=== PATIENT | female | born 1990 | race Caucasian/White ===

== ENCOUNTER 2023-03-24 09:29 | Inpatient (IN) ==
--- NOTE | 2023-03-24 10:05 | Emergency Department Note ---
Impression & Plan Pulmonary embolism, Hypoxia, Anemia ED Provider Note NAME: PAUL RAMESH AGE: 32 SEX: F : 1990 ARRIVES VIA: Walk-In INFORMANT: Patient, ED PROVIDER(S): Joe Shore DO CHIEF COMPLAINT: Shortness of breath HPI: The patient is a 32-year-old female who presented to the emergency department for an evaluation of difficulty breathing. The patient's noticed difficulty breathing especially with any exertion. This been worsening over the course last week. Initially she was seen at an urgent care. She was recommended a steroid for presumed bronchitis. The patient did not start the steroid yet. She was seen by her primary care physician today. Reportedly she had an oxygen saturation of 84% and was sent to the emergency department for possible pulmonary embolism. The patient denies having any leg swelling. She denies having any rectal bleeding or vaginal bleeding. She states symptoms are much worsened with exertion. They do relieve somewhat with rest. She denies having any fever or hemoptysis. She denies having any lower extremity swelling or pain. ROS: See above HPI for pertinent positives & negatives. A total of 10 systems reviewed and were otherwise negative. PAST MEDICAL HISTORY: See Below PAST SURGICAL HISTORY: See Below FAMILY HISTORY: See Below SOCIAL HISTORY: See Below HOME MEDICATIONS: See Below ALLERGIES: See Below VITALS: See Below PHYSICAL EXAMINATION: GENERAL: Patient is awake alert in no acute distress patient is resting comfortably and showing no signs of anxiety EYES: The conjunctivae are pale. The pupils are round and reactive. EARS, NOSE, MOUTH AND THROAT: The nose is without any evidence of any deformity. Mucous membranes are moist. Lips are pale. NECK: The neck is nontender and supple. RESPIRATORY: Tachypnea was noted. There is no diminished breath sounds rales rhonchi or wheezing. CARDIOVASCULAR: Tachycardic and regular heart sounds were noted to auscultation. There is no definite murmur. GASTROINTESTINAL: The abdomen is soft. Abdomen is nontender. Rectal exam revealed brown stool which was heme-negative. MUSCULOSKELETAL/EXTREMITIES: There is no evidence of gross deformity full range of motion is noted in the hips and shoulders. SKIN: There is no obvious evidence of any rash. There are no petechiae, pallor or cyanosis noted. NEUROLOGIC: Patient is awake alert and oriented x3 MEDICAL DECISION MAKING: The patient is a 32-year-old female who presented to the emergency department for an evaluation of difficulty breathing. The patient was experiencing severe shortness of breath with any exertion. Initially my evaluation found her to be very pale and I thought she may be severely anemic. She was found to be anemic but not to the degree that I would feel it would explain the patient's symptoms. For this reason further radiographic and laboratory studies were obtained including CT angiography of the chest. This did reveal significant pulmonary embolism which was bilateral. There was right heart strain. I discussed the patient's condition with her. She was started on IV heparin in the emergency department. I discussed the patient's condition with the on-call [facility]ist group. They have agreed to evaluate the patient in the emergency department for further management and disposition. Triage Nursing notes reviewed. Prior medical records reviewed Vital Signs: reviewed and remarkable for tachycardia and hypertension. Differential diagnosis: Reactive airway disease, pneumonia, pneumothorax, COPD, CHF, infections, cardiac ischemia, pulmonary embolism, musculoskeletal, gastrointestinal, as well as other pathologies. ER treatment provided: See below Diagnostics interpreted by me: ECG: EKG was obtained in the emergency department. My interpretation is sinus tachycardia at 111 bpm. There is no ectopy. There is no acute ST segment abnormalities noted. No previous tracing was available. Cardiac Monitoring: An order was placed for continuous cardiac monitoring. The monitor shows a rate of 105 bpm with sinus tachycardia. Laboratory studies: As stated above and show below. Imaging studies: See below. Radiographic imaging was reviewed by myself Consultation(s): I discussed this case with Saniya who is on-call for the [facility] Hospitalist group. ED COURSE: Procedures: none Critical Care: I have personally spent greater than 65 minutes of critical care time in the direct management of this patient. This includes bedside care, interpretation of diagnostic studies, and testing, discussion with consultants, patient, and family members, and other required patient management activities. This 65 minutes is in excess of all separately billable procedures. Past Med/Surg History Medical History (Updated 03/24/23 @ 12:55 by DWAYNE Campbell) Depression Surgical History (Updated 03/24/23 @ 14:36 by DWAYNE Campbell) No pertinent past surgical history Family History (Updated 03/24/23 @ 14:36 by Fatoumata I. Emeterio, C S S REPRESENTATIVE) Other Diabetes Social History Smoking Status: Never smoker Preferred Language: Liberian Feels Safe at Home: Yes Allergies Allergies Allergy/AdvReac Type Severity Reaction Status Date / Time No Known Allergies Allergy Verified 03/24/23 13:05 Home Meds Home Medications Medication Instructions Recorded Confirmed fluoxetine 10 mg capsule 10 mg PO DAILY 03/24/23 03/24/23 levonorgestrel-ethinyl estradiol 1 tab PO DAILY 03/24/23 03/24/23 0.1 mg-20 mcg tablet Results & Data (ED) Vital Signs Vital Signs - 24 hr 03/24/23 09:38 03/24/23 10:10 03/24/23 10:15 Temperature 36.6 C Temperature Source Temporal Artery Scan Pulse Rate 123 H 113 H Pulse Rate [Apical] Pulse Rate from SpO2 Sensor Pulse Rhythm [Apical] Pulse Strength [Apical] Respiratory Rate 18 Respiratory Effort / Characteristics Labored Respiratory Depth Deep Respiratory Pattern Blood Pressure 157/97 H Blood Pressure [Left Arm] Blood Pressure Mean 117 Blood Pressure Mean [Left Arm] Pulse Oximetry 93 Oxygen Delivery Method Room Air Oxygen Flow Rate Sepsis Recent Fever Within 48 Hours No Sepsis New/Unexplained Change in Mental Status No Sepsis Action Taken by Nursing No Action Required Oxygen Flow Rate - Titration Pulse Oximetry Post Tiitration 03/24/23 10:15 03/24/23 10:06 03/24/23 10:30 Temperature Temperature Source Pulse Rate 110 H 103 H Pulse Rate [Apical] Pulse Rate from SpO2 Sensor 110 H 103 H Pulse Rhythm [Apical] Pulse Strength [Apical] Respiratory Rate 23 22 Respiratory Effort / Characteristics Respiratory Depth Respiratory Pattern Blood Pressure 133/106 H 123/102 H Blood Pressure [Left Arm] Blood Pressure Mean 115 109 Blood Pressure Mean [Left Arm] Pulse Oximetry 88 L 96 100 Oxygen Delivery Method Room Air Nasal Cannula Nasal Cannula Oxygen Flow Rate 2 2 Sepsis Recent Fever Within 48 Hours Sepsis New/Unexplained Change in Mental Status Sepsis Action Taken by Nursing Oxygen Flow Rate - Titration 2 Pulse Oximetry Post Tiitration 98 03/24/23 11:00 03/24/23 11:30 03/24/23 12:12 Temperature Temperature Source Pulse Rate 101 H 113 H 108 H Pulse Rate [Apical] Pulse Rate from SpO2 Sensor 101 H 111 H 109 H Pulse Rhythm [Apical] Pulse Strength [Apical] Respiratory Rate 16 17 22 Respiratory Effort / Characteristics Respiratory Depth Respiratory Pattern Blood Pressure 134/105 H 155/121 H 179/135 H Blood Pressure [Left Arm] Blood Pressure Mean 114 132 149 Blood Pressure Mean [Left Arm] Pulse Oximetry 99 96 99 Oxygen Delivery Method Nasal Cannula Nasal Cannula Nasal Cannula Oxygen Flow Rate 2 2 2 Sepsis Recent Fever Within 48 Hours Sepsis New/Unexplained Change in Mental Status Sepsis Action Taken by Nursing Oxygen Flow Rate - Titration Pulse Oximetry Post Tiitration 03/24/23 13:40 03/24/23 14:52 Temperature Temperature Source Pulse Rate 109 H Pulse Rate [Apical] 105 H Pulse Rate from SpO2 Sensor Pulse Rhythm [Apical] Regular Pulse Strength [Apical] Normal Respiratory Rate 18 Respiratory Effort / Characteristics Non-Labored Respiratory Depth Normal Respiratory Pattern Regular Blood Pressure Blood Pressure [Left Arm] 128/106 H Blood Pressure Mean Blood Pressure Mean [Left Arm] 113 Pulse Oximetry 100 Oxygen Delivery Method Room Air Oxygen Flow Rate Sepsis Recent Fever Within 48 Hours Sepsis New/Unexplained Change in Mental Status Sepsis Action Taken by Nursing Oxygen Flow Rate - Titration Pulse Oximetry Post Tiitration Home Medications Current Medication List: was personally reviewed by me Laboratory Data Attestation: I reviewed the patient's lab results. 03/24/23 10:01 03/24/23 10:02 Lab Results 03/24/23 03/24/23 03/24/23 Range/Units 10:01 10:01 10:01 WBC 15.16 H (4.8-10.8) K/ul RBC 4.85 (4.20-5.40) M/uL Hgb 7.8 L (12.0-16.0) g/dl Hct 30.5 L (37.0-47.0) % MCV 62.9 L (80.0-100.0) fL MCH 16.1 L (25.0-34.0) pg MCHC 25.6 L (32.0-36.0) g/dL RDW Std Deviation 40.5 (36.4-46.3) fL RDW Coeff of Radha 18.9 H (11.5-14.5) % Plt Count 451 H (130-400) K/uL MPV 9.4 (9.4-12.4) fL Immature Gran % (Auto) 0.4 % Neut % (Auto) 79.1 % Lymph % (Auto) 15.0 % [place] % (Auto) 5.2 % Eos % (Auto) 0.1 % Baso % (Auto) 0.2 % Reticulocyte % (Auto) 1.9 (0.5-2.0) % Neut # (Auto) 12.00 H (1.40-6.50) K/uL Lymph # (Auto) 2.27 (1.2-3.4) K/uL [place] # (Auto) 0.79 H (0.11-0.59) K/uL Eos # (Auto) 0.01 (0-0.50) K/uL Baso # (Auto) 0.03 (0-0.2) K/uL Reticulocyte # 0.09 (0.02-0.10) 10^6/uL Immature Gran # (Auto) 0.06 (0.01-0.20) K/uL Absolute Nucleated RBC 0.02 (0-0.12) K/uL Nucleated RBC % (auto) 0.1 % Polychromasia 1+ Hypochromasia Present Microcytosis Present PT 12.1 H (9.0-12.0) Seconds INR 1.1 (0.9-1.1) APTT 25.1 (21.0-31.0) Seconds PTT Ratio 0.9 D-Dimer 4390 H* (0-500) ug/L FEU VBG pH (7.36-7.41) VBG pCO2 (38-50) mmHg VBG pO2 mmHg VBG HCO3 mmol/L VBG O2 Saturation % VBG Base Excess mEq/L Methemoglobin (0.0-1.5) % Sodium (136-145) mmol/L Potassium (3.5-5.1) mmol/L Chloride (98-107) mmol/L Carbon Dioxide (21-32) mmol/L Anion Gap (3-11) BUN (6-23) mg/dl Creatinine (0.6-1.2) mg/dl Est Cr Clr Drug Dosing ml/min Est GFR ( Amer) ml/min Est GFR (Non-Af Amer) ml/min BUN/Creatinine Ratio (10-20) Glucose (70-99(Fasting)) mg/dl Calcium (8.6-10.3) mg/dl Unsaturated IBC Total Bilirubin (0.2-1.0) mg/dl AST (13-39) U/L ALT (7-52) U/L Alkaline Phosphatase (34-104) U/L Total Protein (6.0-8.3) gm/dl Albumin (3.4-5.0) gm/dl Globulin (2.5-4.0) gm/dl Albumin/Globulin Ratio (0.9-2) HCG, Qual (Negative) SARS-CoV-2 (PCR) (Negative) Influenza Type A (PCR) (Neg) Influenza Type B (PCR) (Neg) RSV (RT-PCR) (Neg) Blood Type Antibody Screen 03/24/23 03/24/23 03/24/23 Range/Units 10:02 10:02 10:02 WBC (4.8-10.8) K/ul RBC (4.20-5.40) M/uL Hgb (12.0-16.0) g/dl Hct (37.0-47.0) % MCV (80.0-100.0) fL MCH (25.0-34.0) pg MCHC (32.0-36.0) g/dL RDW Std Deviation (36.4-46.3) fL RDW Coeff of Radha (11.5-14.5) % Plt Count (130-400) K/uL MPV (9.4-12.4) fL Immature Gran % (Auto) % Neut % (Auto) % Lymph % (Auto) % [place] % (Auto) % Eos % (Auto) % Baso % (Auto) % Reticulocyte % (Auto) (0.5-2.0) % Neut # (Auto) (1.40-6.50) K/uL Lymph # (Auto) (1.2-3.4) K/uL [place] # (Auto) (0.11-0.59) K/uL Eos # (Auto) (0-0.50) K/uL Baso # (Auto) (0-0.2) K/uL Reticulocyte # (0.02-0.10) 10^6/uL Immature Gran # (Auto) (0.01-0.20) K/uL Absolute Nucleated RBC (0-0.12) K/uL Nucleated RBC % (auto) % Polychromasia Hypochromasia Microcytosis PT (9.0-12.0) Seconds INR (0.9-1.1) APTT (21.0-31.0) Seconds PTT Ratio D-Dimer (0-500) ug/L FEU VBG pH (7.36-7.41) VBG pCO2 (38-50) mmHg VBG pO2 mmHg VBG HCO3 mmol/L VBG O2 Saturation % VBG Base Excess mEq/L Methemoglobin (0.0-1.5) % Sodium 137 (136-145) mmol/L Potassium 3.7 (3.5-5.1) mmol/L Chloride 104 (98-107) mmol/L Carbon Dioxide 23 (21-32) mmol/L Anion Gap 10 (3-11) BUN 18 (6-23) mg/dl Creatinine 0.87 (0.6-1.2) mg/dl Est Cr Clr Drug Dosing 105.1 ml/min Est GFR ( Amer) 102.2 ml/min Est GFR (Non-Af Amer) 88.1 ml/min BUN/Creatinine Ratio 20.7 H (10-20) Glucose 135 H (70-99(Fasting)) mg/dl Calcium 9.6 (8.6-10.3) mg/dl Unsaturated IBC Total Bilirubin 0.6 (0.2-1.0) mg/dl AST 16 (13-39) U/L ALT 21 (7-52) U/L Alkaline Phosphatase 60 (34-104) U/L Total Protein 8.4 H (6.0-8.3) gm/dl Albumin 4.0 (3.4-5.0) gm/dl Globulin 4.4 H (2.5-4.0) gm/dl Albumin/Globulin Ratio 0.9 (0.9-2) HCG, Qual Negative (Negative) SARS-CoV-2 (PCR) NEGATIVE (Negative) Influenza Type A (PCR) Negative (Neg) Influenza Type B (PCR) Negative (Neg) RSV (RT-PCR) Negative (Neg) Blood Type Antibody Screen 03/24/23 03/24/23 03/24/23 Range/Units 10:11 10:11 10:11 WBC (4.8-10.8) K/ul RBC (4.20-5.40) M/uL Hgb (12.0-16.0) g/dl Hct (37.0-47.0) % MCV (80.0-100.0) fL MCH (25.0-34.0) pg MCHC (32.0-36.0) g/dL RDW Std Deviation (36.4-46.3) fL RDW Coeff of Radha (11.5-14.5) % Plt Count (130-400) K/uL MPV (9.4-12.4) fL Immature Gran % (Auto) % Neut % (Auto) % Lymph % (Auto) % [place] % (Auto) % Eos % (Auto) % Baso % (Auto) % Reticulocyte % (Auto) (0.5-2.0) % Neut # (Auto) (1.40-6.50) K/uL Lymph # (Auto) (1.2-3.4) K/uL [place] # (Auto) (0.11-0.59) K/uL Eos # (Auto) (0-0.50) K/uL Baso # (Auto) (0-0.2) K/uL Reticulocyte # (0.02-0.10) 10^6/uL Immature Gran # (Auto) (0.01-0.20) K/uL Absolute Nucleated RBC (0-0.12) K/uL Nucleated RBC % (auto) % Polychromasia Hypochromasia Microcytosis PT (9.0-12.0) Seconds INR (0.9-1.1) APTT (21.0-31.0) Seconds PTT Ratio D-Dimer (0-500) ug/L FEU VBG pH 7.44 H (7.36-7.41) VBG pCO2 34 L (38-50) mmHg VBG pO2 24 mmHg VBG HCO3 23 mmol/L VBG O2 Saturation < 60.0 % VBG Base Excess -0.5 mEq/L Methemoglobin 1.1 (0.0-1.5) % Sodium (136-145) mmol/L Potassium (3.5-5.1) mmol/L Chloride (98-107) mmol/L Carbon Dioxide (21-32) mmol/L Anion Gap (3-11) BUN (6-23) mg/dl Creatinine (0.6-1.2) mg/dl Est Cr Clr Drug Dosing ml/min Est GFR ( Amer) ml/min Est GFR (Non-Af Amer) ml/min BUN/Creatinine Ratio (10-20) Glucose (70-99(Fasting)) mg/dl Calcium (8.6-10.3) mg/dl Unsaturated IBC Total Bilirubin (0.2-1.0) mg/dl AST (13-39) U/L ALT (7-52) U/L Alkaline Phosphatase (34-104) U/L Total Protein (6.0-8.3) gm/dl Albumin (3.4-5.0) gm/dl Globulin (2.5-4.0) gm/dl Albumin/Globulin Ratio (0.9-2) HCG, Qual (Negative) SARS-CoV-2 (PCR) (Negative) Influenza Type A (PCR) (Neg) Influenza Type B (PCR) (Neg) RSV (RT-PCR) (Neg) Blood Type A Positive Antibody Screen NEGATIVE 03/24/23 Range/Units 14:21 WBC (4.8-10.8) K/ul RBC (4.20-5.40) M/uL Hgb (12.0-16.0) g/dl Hct (37.0-47.0) % MCV (80.0-100.0) fL MCH (25.0-34.0) pg MCHC (32.0-36.0) g/dL RDW Std Deviation (36.4-46.3) fL RDW Coeff of Radha (11.5-14.5) % Plt Count (130-400) K/uL MPV (9.4-12.4) fL Immature Gran % (Auto) % Neut % (Auto) % Lymph % (Auto) % [place] % (Auto) % Eos % (Auto) % Baso % (Auto) % Reticulocyte % (Auto) (0.5-2.0) % Neut # (Auto) (1.40-6.50) K/uL Lymph # (Auto) (1.2-3.4) K/uL [place] # (Auto) (0.11-0.59) K/uL Eos # (Auto) (0-0.50) K/uL Baso # (Auto) (0-0.2) K/uL Reticulocyte # (0.02-0.10) 10^6/uL Immature Gran # (Auto) (0.01-0.20) K/uL Absolute Nucleated RBC (0-0.12) K/uL Nucleated RBC % (auto) % Polychromasia Hypochromasia Microcytosis PT (9.0-12.0) Seconds INR (0.9-1.1) APTT (21.0-31.0) Seconds PTT Ratio D-Dimer (0-500) ug/L FEU VBG pH (7.36-7.41) VBG pCO2 (38-50) mmHg VBG pO2 mmHg VBG HCO3 mmol/L VBG O2 Saturation % VBG Base Excess mEq/L Methemoglobin (0.0-1.5) % Sodium (136-145) mmol/L Potassium (3.5-5.1) mmol/L Chloride (98-107) mmol/L Carbon Dioxide (21-32) mmol/L Anion Gap (3-11) BUN (6-23) mg/dl Creatinine (0.6-1.2) mg/dl Est Cr Clr Drug Dosing ml/min Est GFR ( Amer) ml/min Est GFR (Non-Af Amer) ml/min BUN/Creatinine Ratio (10-20) Glucose (70-99(Fasting)) mg/dl Calcium (8.6-10.3) mg/dl Unsaturated IBC Cancelled Total Bilirubin (0.2-1.0) mg/dl AST (13-39) U/L ALT (7-52) U/L Alkaline Phosphatase (34-104) U/L Total Protein (6.0-8.3) gm/dl Albumin (3.4-5.0) gm/dl Globulin (2.5-4.0) gm/dl Albumin/Globulin Ratio (0.9-2) HCG, Qual (Negative) SARS-CoV-2 (PCR) (Negative) Influenza Type A (PCR) (Neg) Influenza Type B (PCR) (Neg) RSV (RT-PCR) (Neg) Blood Type Antibody Screen Administered Medications Heparin Sodium/Dextrose (Heparin Sodium/Dextrose) 25,000 units in 500 mls @ 26 mls/hr IV .[id number] [facility]; Protocol Stop: 04/23/23 12:29 Last Admin: 03/24/23 13:09 Dose: 1,300 units/hr, 26 mls/hr Documented By: ERVIN Co-signed By: JACKY Discontinued Medications Heparin Sodium (Porcine) (Heparin Sod (Porcine) 1000 Unit/Ml) 6,000 units IV NOW ONE Stop: 03/24/23 13:01 Last Admin: 03/24/23 13:09 Dose: 6,000 units Documented By: ERVIN Co-signed By: JACKY Sodium Chloride (Nss) 500 mls @ 999 mls/hr IV .[id number] ONE Stop: 03/24/23 11:45 Last Infusion: 03/24/23 13:04 Dose: 0 mls/hr Documented By: Admin: 03/24/23 12:00 Dose: 999 mls/hr Documented By: ERVIN Ioversol (Optiray 320 500ml) 106 ml IV ONCE ONE Stop: 03/24/23 12:11 Last Admin: 03/24/23 12:05 Dose: 106 ml Documented By: KEISHA Imaging Data Attestation: I personally reviewed and interpreted this imaging study as follows: My Impression: CT angiography of the chest was obtained. My interpretation is bilateral pulmonary embolism, final report below. Radiologist's Impression: Chest CTA 03/24/23 11:41 CT ANGIOGRAPHY OF THE CHEST, PULMONARY EMBOLUS PROTOCOL CLINICAL HISTORY: Shortness of breath. Chest pain. COMPARISON STUDY: No previous studies for comparison. TECHNIQUE: Following IV administration of 106 mL of Optiray, helical axial images of the chest were obtained utilizing the pulmonary embolus protocol. Maximal intensity projections and sagittal and coronal reformats were viewed on an independent 3D workstation. IV contrast was administered without complication. Automated exposure control was utilized for the study. A dose lowering technique was utilized adhering to the principles of ALARA. CT DOSE: 725.46 mGy.cm FINDINGS: Note is made of extensive bilateral pulmonary emboli. These include emboli within the right pulmonary artery as well as emboli extending into the lobes of both lungs. Many lobar pulmonary emboli are occlusive. No pulmonary infarct is present. There is straightening of the interventricular septum. There is possible thrombus within the right ventricle which measures up to 2.6 cm. No thoracic lymphadenopathy is present. There is no consolidation to suggest pneumonia. No acute fractures within the bony thorax are noted. Visualized portions of the upper abdomen are unremarkable. IMPRESSION: 1. Extensive bilateral pulmonary emboli with findings suggestive of right heart strain. Possible thrombus/emboli within the right ventricle. Findings discussed with Dr. Shore at time of dictation. 2. No pulmonary infarct. ACT 112: Negative or not required by law. Electronically signed by: Aiden Hernandez M.D. 03/24/2023 12:23 PM Discharge Plan Visit Data Chief Complaint: Shortness of Breath/Dyspnea Stated Complaint: POSSIBLE BLOOD CLOT IN LUNGS,DOC REF ED Provider: Joe Shore Discharge Problem: Pulmonary embolism, Hypoxia, Anemia Patient Disposition: Being Evaluated by Hospitalist Forms Stand Alone Forms: [facility] Prescriptions Prescriptions: No Action fluoxetine 10 mg capsule 10 mg PO DAILY levonorgestrel-ethinyl estrad 0.1-20 mg-mcg tablet 1 tab PO DAILY Referrals Referrals: PCP,NO [Physician] -
[2023-03-24 10:27] LABS: Base Excess VBG -0.5 mEq/L; HCO3 VBG 23 mmol/L; Oxygen Saturation VBG < 60.0 %; PCO2 VBG 34 mmHg (38-50); PO2 VBG 24 mmHg; pH VBG 7.44 (7.36-7.41)
[2023-03-24 10:44] LABS: Hematocrit (blood only) 30.5 % (37.0-47.0); Hemoglobin 7.8 g/dl (12.0-16.0); Mean Corpuscular Hemoglobin 16.1 pg (25.0-34.0); Mean Corpuscular Hgb Conc 25.6 g/dL (32.0-36.0); Mean Corpuscular Volume 62.9 fL (80.0-100.0); Mean Platelet Volume 9.4 fL (9.4-12.4); Nucleated RBC # (auto) 0.02 K/uL (0-0.12); Nucleated RBC % (auto) 0.1 %; Platelet Count 451 K/uL (130-400); RDW Coefficient of Variation 18.9 % (11.5-14.5); RDW Standard Deviation 40.5 fL (36.4-46.3); Red Blood Count 4.85 M/uL (4.20-5.40); White Blood Count 15.16 K/ul (4.8-10.8)
[2023-03-24 10:54] LABS: Albumin Globulin Ratio 0.9 (0.9-2); BUN Creatinine Ratio 20.7 (10-20); Bilirubin,Total 0.6 mg/dl (0.2-1.0); Calcium 9.6 mg/dl (8.6-10.3); Creatinine Clr Calc Pharmacy 105.1 ml/min; Est GFR (African American) 102.2 ml/min; Est GFR (Non-African American) 88.1 ml/min; Globulin 4.4 gm/dl (2.5-4.0); Potassium 3.7 mmol/L (3.5-5.1); Total Protein 8.4 gm/dl (6.0-8.3)
[2023-03-24 10:55] LABS: Pregnancy Test, Serum Negative (Negative)
[2023-03-24 11:05] LABS: INR 1.1 (0.9-1.1); Partial Thromboplastin Ratio 0.9; Partial Thromboplastin Time 25.1 Seconds (21.0-31.0); Prothrombin Time 12.1 Seconds (9.0-12.0)
[2023-03-24 11:09] LABS: Basophils # (auto) 0.03 K/uL (0-0.2); Basophils % (auto) 0.2 %; Eosinophils # (auto) 0.01 K/uL (0-0.50); Eosinophils % (auto) 0.1 %; Hypochromasia Present; Immature Granulocytes # (auto) 0.06 K/uL (0.01-0.20); Immature Granulocytes % (auto) 0.4 %; Lymphocytes # (auto) 2.27 K/uL (1.2-3.4); Microcytosis Present; Monocytes # (auto) 0.79 K/uL (0.11-0.59); Monocytes % (auto) 5.2 %; Neutrophils % (auto) 79.1 %; Polychromasia 1+
[2023-03-24] MEDS ORDERED: SODIUM CHLORIDE 0.9% 500 ML IV ONE (11:15)
[2023-03-24 11:34] LABS: D Dimer 4390 ug/L FEU (0-500)
[2023-03-24] MEDS ORDERED: OPTIRAY 320 500ml IV ONE (12:10)
[2023-03-24] MEDS ORDERED: Heparin IV Adult Wt-Based Standard WITH Bolus Protocol IV STA (12:14)
[2023-03-24] MEDS ORDERED: Heparin IV Adult Wt-Based Standard WITH Bolus Protocol IV SCH (12:15)
[2023-03-24 12:20] LABS: Reticulocyte % 1.9 % (0.5-2.0); Reticulocytes # 0.09 10^6/uL (0.02-0.10)
--- NOTE | 2023-03-24 12:25 | CT Scan Report ---
CT ANGIOGRAPHY OF THE CHEST, PULMONARY EMBOLUS PROTOCOL CLINICAL HISTORY: Shortness of breath. Chest pain. COMPARISON STUDY: No previous studies for comparison. TECHNIQUE: Following IV administration of 106 mL of Optiray, helical axial images of the chest were o btained utilizing the pulmonary embolus protocol. Maximal intensity projections and sagittal and cor onal reformats were viewed on an independent 3D workstation. IV contrast was administered without co mplication. Automated exposure control was utilized for the study. A dose lowering technique was ut ilized adhering to the principles of ALARA. CT DOSE: 725.46 mGy.cm FINDINGS: Note is made of extensive bilateral pulmonary emboli. These include emboli within the righ t pulmonary artery as well as emboli extending into the lobes of both lungs. Many lobar pulmonary emb leonila are occlusive. No pulmonary infarct is present. There is straightening of the interventricular se ptum. There is possible thrombus within the right ventricle which measures up to 2.6 cm. No thoracic lymphadenopathy is present. There is no consolidation to suggest pneumonia. No acute fractures within the bony thorax are noted. Visualized portions of the upper abdomen are unremarkable. IMPRESSION: 1. Extensive bilateral pulmonary emboli with findings suggestive of right heart strain. Possible thro mbus/emboli within the right ventricle. Findings discussed with Dr. Shore at time of dictation. 2. No pulmonary infarct. ACT 112: Negative or not required by law. Electronically signed by: Aiden Hernandez M.D. 03/24/2023 12:23 PM
[2023-03-24] MEDS ORDERED: HEPARIN SOD (PORCINE) 1000 UNIT/ML IV ONE ×3 (12:29→20:21)
--- NOTE | 2023-03-24 12:56 | History & Physical Report ---
Date of Service March 24, 2023 Assessment & Plan (1) Pulmonary embolism: (2) Hypoxia: (3) Anemia: (4) Depression: Plan 32 year old with acute SOB that started on Tuesday. Chest CTA bilateral PE. Heparin gtt ordered. Anemic 7.8; anemia panel pending. May have underlying coagulopathy issues to investigate once off Heparin infusion. 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 Pulmonary Embolism: SOB since Tuesday Hypoxic 86% ; on 2LNC D-Dimer 4390 Chest CTA: large clot burden. Emboli within the right pulmonary artery as well as emboli extending into the lobes of both lungs. Many lobar pulmonary emboli are occlusive. No pulmonary infarct is present. There is straightening of the interventricular septum. There is possible thrombus within the right ventricle which measures up to 2.6 cm. Heparin gtt with bolus started ECHO ordered no cardiac thrombus noted PCU admission Pulmonary consultation; appreciate recommendations as outlined here: Per Pulmonary; recommend heparin for 3-4 days prior to transition to oral anticoagulant. Given the extensive nature of her clot and idiopathic nature of her clot, could make a strong case for lifelong anticoagulation. If not, would complete 6 months of anticoagulation and then follow-up with hematology for consideration of thrombophilia evaluation. Anemia: Hgb 7.8; will trend and transfuse if reaches 7.0; next CBC at 2100 Anemia panel and FOBT heavy menstrual cycles since October 2022 Started OCP at that time Pale conjunctiva and lips Type and Screen done; blood consent signed 2UPRBC on hold Depression: takes Prozac; continue Disposition: PCP: Dr. Barnes Code Status: Full Code VTE Prophylaxis: On Heparin gtt I spent a total of 88 minutes coordinating, documenting, and providing care for this patient excluding time spent in the performance of separately billed services. All of the aforementioned completed while collaborating with the assigned attending physician for a full treatment plan. Please see their addendum for further details. History of Present Illness Chief Complaint: SOB Primary Care Provider: Jackie Rangel PA-C On Tuesday, patient was SOB while walking to her office, which usually takes her 8-10 minutes but was taking her nearly 30 minutes due to having to stop frequently. She did leave work and went to urgent care yesterday for which she was prescribed Prednisone and an inhaler. She took one dose of her Prednisone without relief. 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 She was originally started on OCPs due to heavy menstrual flow. In the ED, D-Dimer elevated 4390, Hgb 7.8; reports no known history of anemia. No contributing family history or any coagulation history issues. No other contributing history. 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 She denies tobacco use, alcohol use, recreational drug use. She has taken an edible about 3 months ago. She does not have any pets. Pt sitting upright in her hospital bed and dyspneic during conversation. She is tachycardic low 100's, but is able to complete full sentences. Patient denies COBOS, dizziness, chest pain, palpitations, abdominal pain, hematochezia, urine changes, recent falls, rashes, abnormal bruising. Pt does have pale lips and conjunctiva on exam. Pt was started on a heparin gtt with bolus. c Patient will be admitted for further evaluation and management. Please see A/P for further details. Allergies Allergy/AdvReac Type Severity Reaction Status Date / Time No Known Allergies Allergy Verified 03/24/23 13:05 Home Medications Medication Instructions Recorded Confirmed Type fluoxetine 10 mg capsule 10 mg PO DAILY 03/24/23 03/24/23 History levonorgestrel-ethinyl estradiol 1 tab PO DAILY 03/24/23 03/24/23 History 0.1 mg-20 mcg tablet Past Med/Surg History Medical History (Updated 03/24/23 @ 16:28 by Demarco Merida MD) Depression Surgical History (Updated 03/24/23 @ 14:36 by DWAYNE Campbell) No pertinent past surgical history Family History (Updated 03/24/23 @ 14:36 by DWAYNE Campbell) Other Diabetes Social History Smoking Status: Never smoker Hx Alcohol Use: No Hx Substance Use: No Preferred Language: Ukrainian Communication Ability: Effective Registration Coordinator Required: No Beliefs That Will Affect Care: None Current Living Situation: Alone Feels Safe at Home: Yes Safety Concerns: Feels Safe At This Time Assistive Devices: None Review of Systems Review of Systems: Neuro: (-) Falls, trauma, slurred speech HEENT: (-) COBOS, dizziness, dysphagia, visual or auditory changes CV: (-) CP, palpitations, swelling Resp: (+) SOB GI: (-) appetite changes, N/V/D, bowel changes : (-) urinary changes Skin: (-) rashes Psych: (-) anxiety, depression Physical Exam Physical Exam: Neuro: AAOx4, PERRLA, no aphagia, memory changes, CNII-XII grossly intact HEENT: head normocephalic, moist mucus membranes. pale conjunctiva and lips CV: S1/S2, (-) M/G/R, (-) edema, cap refill < 3 seconds Resp: Lungs decreased in all lobes. on 2LNC GI: Abdomen S/NT/ND, Ax4 bowel sounds, (-) CVA tenderness Musculoskeletal: 5/5 B/L UE strength, 5/5 B/L LE strength. No gait disturbance Skin: (-) rashes , (-) erythema. Psych: euthymic, yet anxious mood Results & Data Results & Data Vital Signs (Past 12 Hours) Vital Signs Temp Pulse Resp BP Pulse Ox O2 Del Method O2 Flow Rate 03/24/23 12:12 108 H 22 179/135 H 99 Nasal Cannula 2 03/24/23 11:30 113 H 17 155/121 H 96 Nasal Cannula 2 03/24/23 11:00 101 H 16 134/105 H 99 Nasal Cannula 2 03/24/23 10:30 103 H 22 123/102 H 100 Nasal Cannula 2 03/24/23 10:06 110 H 23 133/106 H 96 Nasal Cannula 2 03/24/23 10:15 88 L Room Air 03/24/23 10:10 113 H 03/24/23 09:38 36.6 C 123 H 18 157/97 H 93 Room Air Laboratory Results Short CBC 03/24/23 Range/Units 10:01 WBC 15.16 H (4.8-10.8) K/ul Hgb 7.8 L (12.0-16.0) g/dl Hct 30.5 L (37.0-47.0) % Plt Count 451 H (130-400) K/uL BMP 03/24/23 10:02 Sodium 137 Potassium 3.7 Chloride 104 Carbon Dioxide 23 BUN 18 Creatinine 0.87 Glucose 135 H Calcium 9.6 Liver Function 03/24/23 Range/Units 10:02 Total Bilirubin 0.6 (0.2-1.0) mg/dl AST 16 (13-39) U/L ALT 21 (7-52) U/L Alkaline Phosphatase 60 (34-104) U/L Albumin 4.0 (3.4-5.0) gm/dl Diagnostic Findings Chest CTA 03/24/23 11:41 CT ANGIOGRAPHY OF THE CHEST, PULMONARY EMBOLUS PROTOCOL CLINICAL HISTORY: Shortness of breath. Chest pain. COMPARISON STUDY: No previous studies for comparison. TECHNIQUE: Following IV administration of 106 mL of Optiray, helical axial image s of the chest were obtained utilizing the pulmonary embolus protocol. Maximal intensity projections and sagittal and coronal reformats were viewed on an independent 3D workstation. IV contrast was administered without complication. Automated exposure control was utilized for the study. A dose lowering technique was utilized adhering to the principles of ALARA. CT DOSE: 725.46 mGy.cm FINDINGS: Note is made of extensive bilateral pulmonary emboli. These include emboli within the right pulmonary artery as well as emboli extending into the lobes of both lungs. Many lobar pulmonary emboli are occlusive. No pulmonary infarct is present. There is straightening of the interventricular septum. There is possible thrombus within the right ventricle which measures up to 2.6 cm. No thoracic lymphadenopathy is present. There is no consolidation to suggest pneumonia. No acute fractures within the bony thorax are noted. Visualized portions of the upper abdomen are unremarkable. IMPRESSION: 1. Extensive bilateral pulmonary emboli with findings suggestive of right heart strain. Possible thrombus/emboli within the right ventricle. Findings discussed with Dr. Shore at time of dictation. 2. No pulmonary infarct. ACT 112: Negative or not required by law. Electronically signed by: Aiden Hernandez M.D. 03/24/2023 12:23 PM Code Status & VTE Plan Code Status Full Code in the event of cardiac or respiratory distress VTE Prophylaxis Plan VTE Prophylaxis will be ordered: Yes Supervising Physician Co-Signing Physician Notes Patient is a 32-year-old female with history of menorrhagia, mood disorder and no other significant past medical history who was recently started on OCPs about 5 months ago for heavy menstrual bleeding presents with history of sudden onset of shortness of breath associated with easy fatigability. She denies any bleeding issues or clotting problems in the past. She was found to be in hypertensive urgency while in ED. CTA suggestive of extensive bilateral pulmonary emboli with findings suggestive of right heart strain. Blood work suggestive of leukocytosis 15 K, hemoglobin 7.8, platelets 451, glucose 135, troponin 279. Negative RSV, influenza, COVID screen. Urine analysis pending. EKG suggestive of sinus tachycardia, QTc 470. Echo showed normal left ventricular wall motion abnormality. Flattened septum consistent with RV pressure overload. Right ventricle is moderately dilated. Carson sign present with hyperdynamic RV apex and hypokinetic basilar structures. Prominent moderator band visible but no intracardiac mass. Mild tricuspid regurgitation. Right ventricle systolic function is elevated at 40 to 50 mmHg. On exam patient is obese, no apparent distress, normocephalic atraumatic, EOMI, normal breath sounds, clear to auscultation, S1-S2, no murmur, tachycardia, no pedal edema, abdomen soft, nontender, normal bowel sounds, alert, awake, oriented, grossly no focal deficits. Patient is admitted for management of acute respiratory failure with hypoxia secondary to acute PE with right heart strain, acute cor pulmonale. Started on IV heparin. Blood pressure improved, continue to monitor and treat if needed. Will check venous Dopplers. Will need repeat echo with contrast tomorrow to assess RV myocardium. Needs hypercoagulable work-up, hematology follow-up as outpatient. OCPs discontinued. Appreciate pulmonology input. GASKET INSPECTOR consulted. Monitor for anemia. Anemia work-up ordered. I personally reviewed the record. Patient is interviewed and examined at bedside. Patient's care is coordinated with Fatoumata RICE. Please refer to the documentation above for details of patient's presentation and for discussion of other issues. (1) Pulmonary embolism Acute cor pulmonale presence: with acute cor pulmonale Chronicity: acute Pulmonary embolism type: unspecified Qualified Code(s): I26.09 - Other pulmonary embolism with acute cor pulmonale (3) Anemia Anemia type: unspecified type Qualified Code(s): D64.9 - Anemia, unspecified
[2023-03-24] MEDS: HEPARIN SODIUM/DEXTROSE 25,000 UNITS/500 ML BAG IV SCH (13:09)
[2023-03-24] MEDS ORDERED: ALUMINUM/MAGNESIUM SUSP 30 ML UDC PO PRN (13:35)
[2023-03-24] MEDS ORDERED: POLYETHYLENE (MIRALAX) 17 GM PACK PO PRN (13:35)
[2023-03-24] MEDS ORDERED: ACETAMINOPHEN 325 MG TAB PO PRN (13:35)
[2023-03-24] MEDS ORDERED: MAGNESIUM HYDROXIDE SUSP 30 ML UDC PO PRN (13:35)
[2023-03-24 13:49] LABS: Influenza A virus by PCR Negative (Neg); Influenza B virus by PCR Negative (Neg); RSV by PCR Negative (Neg); SARS CoV2 RNA(COVID-19) Ceph NEGATIVE (Negative)
[2023-03-24] MEDS ORDERED: LABETALOL HCL IV 5 MG/ML 20ML IV PRN (14:03)
[2023-03-24 14:58] LABS: Reticulocyte % 1.7 % (0.5-2.0); Reticulocytes # 0.08 10^6/uL (0.02-0.10)
[2023-03-24 15:23] LABS: Hematocrit (blood only) 28.5 % (37.0-47.0); Hemoglobin 7.3 g/dl (12.0-16.0); Mean Corpuscular Hemoglobin 16.2 pg (25.0-34.0); Mean Corpuscular Hgb Conc 25.6 g/dL (32.0-36.0); Mean Corpuscular Volume 63.2 fL (80.0-100.0); Mean Platelet Volume 10.2 fL (9.4-12.4); Nucleated RBC # (auto) 0.02 K/uL (0-0.12); Nucleated RBC % (auto) 0.1 %; Platelet Count 400 K/uL (130-400); RDW Coefficient of Variation 18.7 % (11.5-14.5); RDW Standard Deviation 41.1 fL (36.4-46.3); Red Blood Count 4.51 M/uL (4.20-5.40); White Blood Count 17.35 K/ul (4.8-10.8)
[2023-03-24 15:24] LABS: Basophils # (auto) 0.05 K/uL (0-0.2); Basophils % (auto) 0.3 %; Eosinophils # (auto) 0.01 K/uL (0-0.50); Eosinophils % (auto) 0.1 %; Hypochromasia Present; Immature Granulocytes # (auto) 0.07 K/uL (0.01-0.20); Immature Granulocytes % (auto) 0.4 %; Lymphocytes # (auto) 3.81 K/uL (1.2-3.4); Microcytosis Present; Monocytes # (auto) 0.84 K/uL (0.11-0.59); Monocytes % (auto) 4.8 %; Neutrophils # (auto) 12.57 K/uL (1.40-6.50); Neutrophils % (auto) 72.4 %; Polychromasia 1+
[2023-03-24 15:26] LABS: Troponin I High Sensitivity 279.2 pg/ml (0-14)
--- NOTE | 2023-03-24 16:32 | Pulmonary Consultation ---
Date of Consultation March 24, 2023 Assessment & Plan (1) Pulmonary embolism: Acute cor pulmonale presence: with acute cor pulmonale Chronicity: acute Pulmonary embolism type: unspecified Qualified Code(s): I26.09 - Other pulmonary embolism with acute cor pulmonale (2) Anemia: Anemia type: unspecified type Qualified Code(s): D64.9 - Anemia, unspecified (3) Hypoxia: (4) Cor pulmonale, acute: Plan Impression: 32-year-old female with acute PE with acute right-sided heart failure and anemia of unclear etiology although menorrhagia appears to be the etiology. Recommendations: 1. Acute PE with right-sided heart strain. The patient is hemodynamically stable currently. No indication for thrombolytics currently. Would continue heparin. She needs to maintain heparin infusion for 3 to 4 days at which point time she can transition to an oral anticoagulant. Given the extensive nature of her clot and idiopathic nature of her clot, could make a strong case for lifelong anticoagulation. If not, would complete 6 months of anticoagulation and then follow-up with hematology for consideration of thrombophilia evaluation. 2. Acute cor pulmonale: Well compensated currently. We will continue to follow on telemetry. If she develops syncope, presyncope, dizziness lightheadedness, increasing oxygen requirement, low blood pressure, or progressive tachycardia, would have a low threshold for consideration of salvage lytics. Would recommend follow-up echocardiogram in 3 months to ensure she is responding appropriately. 3. Anemia: Per primary. Her ferritin is low. Would recommend transfusion to hemoglobin of 7 with tachycardia and acute PE and hypoxemia. Deferred to the primary service. Would strongly recommend hematology consultation as well as HYDRO PLANT OPERATOR consultation as the patient states she is scheduled to begin her menses around Tuesday and with her being fully anticoagulated would expect her flow to be quite heavy and potentially compromise her anemia. 4. Hypoxemia: Secondary to #1 and #3. Continue oxygen to keep saturations at or above 88% We will continue to follow with you. Feel free to contact us with questions or concerns. The above recommendations were discussed with the patient as well as with her father at bedside. Questions were answered to the best of my ability. She expressed understanding and is in agreement to the plan as outlined History of Present Illness Attending Physician: Kendell Cloud MD History of Present Illness Asked by hospitalist to evaluate this patient with acute pulmonary embolism. History is obtained from discussion with the patient and her father at bedside and reviewed electronic medical record. Patient is a 32-year-old female with a history of menorrhagia who was started on oral contraception about 5 months ago. She states that on Tuesday she developed the relatively acute onset shortness of breath. This was not associated with any dizziness lightheadedness syncope or presyncope. Her symptoms progressed and she presented to the emergency room where she was found to be profoundly anemic and a CT angiogram demonstrated bilateral pulmonary emboli. She had evidence of RV strain with an elevated troponin. She was initiated on a heparin infusion and admitted to the floor. The patient and her father deny any prior family history of sudden cardiac or thromboembolic disease. No unexplained DVTs. She has not had any easy bruisability. No fevers chills night sweats or other constitutional symptoms. She does have a history of HPV infection and underwent colposcopy which revealed some low-grade abnormalities and it was recommended that she have a follow-up Pap smear in a year. Her HYDRO PLANT OPERATOR is through [employer] and her primary care provider has been managing her oral contraception. Patient works in [employer] at the [employer]. She has no significant occupational or environmental exposures. No pets. She is a non-smoker. She uses very rarely edible THC supplements. No e-cigarette use or vaping. Allergies Allergy/AdvReac Type Severity Reaction Status Date / Time No Known Allergies Allergy Verified 03/24/23 13:05 Home Medications Medication Instructions Recorded Confirmed Type fluoxetine 10 mg capsule 10 mg PO DAILY 03/24/23 03/24/23 History levonorgestrel-ethinyl estradiol 1 tab PO DAILY 03/24/23 03/24/23 History 0.1 mg-20 mcg tablet Patient History Medical History (Updated 03/24/23 @ 16:28 by Demarco Merida MD) Depression Surgical History (Updated 03/24/23 @ 14:36 by DWAYNE Campbell) No pertinent past surgical history Family History (Updated 03/24/23 @ 14:36 by DWAYNE Campbell) Other Diabetes Social History Smoking Status: Never smoker Hx Alcohol Use: No Hx Substance Use: No Preferred Language: Danish Communication Ability: Effective Director Graphics Required: No Beliefs That Will Affect Care: None Current Living Situation: Alone Feels Safe at Home: Yes Safety Concerns: Feels Safe At This Time Assistive Devices: None Review of Systems Review of Systems: All systems reviewed & are unremarkable except as noted in Subjective Physical Exam Constitutional: WD/WN, vitals as above Neck: trachea midline, no thyromegaly Respiratory: normal respiratory effort, lungs clear to auscultation Cardiovascular: Rate/Rhythm: + tachycardic Heart Sounds: normal S1 and normal S2; + abnormal physiologic split S2, no gallop and no murmur Extremities: no edema Gastrointestinal (Abdomen): normal bowel sounds, soft, nontender, no hepatosplenomegaly Musculoskeletal: Extremities: extremities normal to inspection Skin: no rashes, warm and dry Neurologic: Nonfocal exam Lymphatic: no cervical lymphadenopathy Results & Data Results & Data Vital Signs (Past 12 Hours) Vital Signs Temp Pulse Pulse Resp BP BP Pulse Ox 03/24/23 16:16 03/24/23 15:34 36.3 C L 111 H 24 138/101 H 97 03/24/23 14:52 105 H 18 128/106 H 100 03/24/23 13:40 109 H 03/24/23 12:12 108 H 22 179/135 H 99 03/24/23 11:30 113 H 17 155/121 H 96 03/24/23 11:00 101 H 16 134/105 H 99 03/24/23 10:30 103 H 22 123/102 H 100 03/24/23 10:06 110 H 23 133/106 H 96 03/24/23 10:15 88 L 03/24/23 10:10 113 H 03/24/23 09:38 36.6 C 123 H 18 157/97 H 93 O2 Del Method O2 Flow Rate 03/24/23 16:16 Nasal Cannula 2 03/24/23 15:34 Nasal Cannula 2 03/24/23 14:52 Nasal Cannula 2 03/24/23 13:40 03/24/23 12:12 Nasal Cannula 2 03/24/23 11:30 Nasal Cannula 2 03/24/23 11:00 Nasal Cannula 2 03/24/23 10:30 Nasal Cannula 2 03/24/23 10:06 Nasal Cannula 2 03/24/23 10:15 Room Air 03/24/23 10:10 03/24/23 09:38 Room Air Critical Care Results & Data Vital Signs (Past 12 Hours) Vital Signs Temp Pulse Pulse Resp BP BP Pulse Ox 03/24/23 16:25 111 H 03/24/23 16:16 03/24/23 15:34 36.3 C L 111 H 24 138/101 H 97 03/24/23 14:52 105 H 18 128/106 H 100 03/24/23 13:40 109 H 03/24/23 12:12 108 H 22 179/135 H 99 03/24/23 11:30 113 H 17 155/121 H 96 03/24/23 11:00 101 H 16 134/105 H 99 03/24/23 10:30 103 H 22 123/102 H 100 03/24/23 10:06 110 H 23 133/106 H 96 03/24/23 10:15 88 L 03/24/23 10:10 113 H 03/24/23 09:38 36.6 C 123 H 18 157/97 H 93 O2 Del Method O2 Flow Rate 03/24/23 16:25 03/24/23 16:16 Nasal Cannula 2 03/24/23 15:34 Nasal Cannula 2 03/24/23 14:52 Nasal Cannula 2 03/24/23 13:40 03/24/23 12:12 Nasal Cannula 2 03/24/23 11:30 Nasal Cannula 2 03/24/23 11:00 Nasal Cannula 2 03/24/23 10:30 Nasal Cannula 2 03/24/23 10:06 Nasal Cannula 2 03/24/23 10:15 Room Air 03/24/23 10:10 03/24/23 09:38 Room Air Lab & Micro Results (Past 24 Hours) RBC 4.51 M/uL (4.20-5.40) 03/24/23 WBC 17.35 K/ul (4.8-10.8) H 03/24/23 Hgb 7.3 g/dl (12.0-16.0) L 03/24/23 Hct 28.5 % (37.0-47.0) L 03/24/23 MCV 63.2 fL (80.0-100.0) L 03/24/23 MCH 16.2 pg (25.0-34.0) L 03/24/23 MCHC 25.6 g/dL (32.0-36.0) L 03/24/23 RDW Standard Deviation 41.1 fL (36.4-46.3) 03/24/23 RDW Coefficient of Variation 18.7 % (11.5-14.5) H 03/24/23 Plt Count 400 K/uL (130-400) 03/24/23 MPV 10.2 fL (9.4-12.4) 03/24/23 Nucleated Red Blood Cells % (auto) 0.1 % 03/24 Nucleated RBC Absolute Count (auto) 0.02 K/uL (0-0.12) 02/27 06/19 Neutrophils (%) (Auto) 72.4 % 03/24/23 Lymphocytes (%) (Auto) 22.0 % 03/24/23 Monocytes # (Auto) 0.84 K/uL (0.11-0.59) H 03/24/23 Eosinophils # (Auto) 0.01 K/uL (0-0.50) 03/24/23 Immature Granulocyte % (Auto) 0.4 % 03/24/23 Neutrophils # (Auto) 12.57 K/uL (1.40-6.50) H 03/24/23 Lymphocytes # (Auto) 3.81 K/uL (1.2-3.4) H 03/24/23 Monocytes # (Auto) 0.84 K/uL (0.11-0.59) H 03/24/23 Eosinophils # (Auto) 0.01 K/uL (0-0.50) 03/24/23 Basophils # (Auto) 0.05 K/uL (0-0.2) 03/24/23 Immature Granulocyte # (Auto) 0.07 K/uL (0.01-0.20) 3 Polychromasia 1+ 03/24/23 Hypochromasia Present 03/24/23 Microcytosis Present 03/24/23 Na 137 mmol/L (136-145) 03/24/23 K 3.7 mmol/L (3.5-5.1) 03/24/23 Cl 104 mmol/L (98-107) 03/24/23 CO2 23 mmol/L (21-32) 03/24/23 Anion Gap 10 (3-11) 03/24/23 BUN 18 mg/dl (6-23) 03/24/23 Creatinine 0.87 mg/dl (0.6-1.2) 03/24/23 Estimated GFR ( Amer) 102.2 ml/min 03/24/23 Estimated GFR (Non-Af Amer) 88.1 ml/min 03/24/23 BUN/Creatinine Ratio 20.7 (10-20) H 03/24/23 Glu 135 mg/dl (70-99(Fasting)) H 03/24/23 Ca 9.6 mg/dl (8.6-10.3) 03/24/23 Total Bilirubin 0.6 mg/dl (0.2-1.0) 03/24/23 AST 16 U/L (13-39) 03/24/23 ALT 21 U/L (7-52) 03/24/23 Alkaline Phosphatase 60 U/L (34-104) 03/24/23 TP 8.4 gm/dl (6.0-8.3) H 03/24/23 Albumin 4.0 gm/dl (3.4-5.0) 03/24/23 Globulin 4.4 gm/dl (2.5-4.0) H 03/24/23 Albumin/Globulin Ratio 0.9 (0.9-2) 03/24/23 Calcium Level 9.6 mg/dl (8.6-10.3) 03/24/23 10:02 Prothromb Time International Ratio 1.1 (0.9-1.1) 03/24/23 10:0 1 Venous Blood pH 7.44 (7.36-7.41) H 03/24/23 10:11 Venous Blood Partial Pressure CO2 34 mmHg (38-50) L 03/24/23 10 :11 Venous Blood Partial Pressure O2 24 mmHg 03/24/23 10:11 Venous Blood HCO3 23 mmol/L 03/24/23 10:11 Venous Blood Base Excess -0.5 mEq/L 03/24/23 10:11 Venous Blood Oxygen Saturation < 60.0 % 03/24/23 10:11 Diagnostic Findings (Past 24 Hours) Chest CTA 03/24/23 11:41 CT ANGIOGRAPHY OF THE CHEST, PULMONARY EMBOLUS PROTOCOL CLINICAL HISTORY: Shortness of breath. Chest pain. COMPARISON STUDY: No previous studies for comparison. TECHNIQUE: Following IV administration of 106 mL of Optiray, helical axial images of the chest were obtained utilizing the pulmonary embolus protocol. Maximal intensity projections and sagittal and coronal reformats were viewed on an independent 3D workstation. IV contrast was administered without complication. Automated exposure control was utilized for the study. A dose lowering technique was utilized adhering to the principles of ALARA. CT DOSE: 725.46 mGy.cm FINDINGS: Note is made of extensive bilateral pulmonary emboli. These include emboli within the right pulmonary artery as well as emboli extending into the lobes of both lungs. Many lobar pulmonary emboli are occlusive. No pulmonary infarct is present. There is straightening of the interventricular septum. There is possible thrombus within the right ventricle which measures up to 2.6 cm. No thoracic lymphadenopathy is present. There is no consolidation to suggest pneumonia. No acute fractures within the bony thorax are noted. Visualized portions of the upper abdomen are unremarkable. IMPRESSION: 1. Extensive bilateral pulmonary emboli with findings suggestive of right heart strain. Possible thrombus/emboli within the right ventricle. Findings discussed with Dr. Shore at time of dictation. 2. No pulmonary infarct. ACT 112: Negative or not required by law. Electronically signed by: Aiden Hernandez M.D. 03/24/2023 12:23 PM I & O Totals 24 Hours 03/23/23 03/24/23 03/25/23 06:59 06:59 06:59 Intake Total 530 / 530 Balance 530 / 530 Cumulative 03/24/23 09:29 thru 03/24/23 16:15 Intake Total 530 Balance 530 RT Ventilator Mngmt (Last Documented) Ventilator Ordered Settings Respiratory Rate 24 03/24/23 15:34 Ventilator - PT Measurements Respiratory Rate 24 PG Care Time/CCT Total # of Minutes Spent Total Time Spent with Patient: Total time spent is greater than 50% in coordination of care (as documented) at patient's floor/unit and/or counseling patient: Coding Level of Care Code 94214 IN/OBS CONSULT LVL 4,60M Diagnoses Pulmonary embolism I26.09 Acute cor pulmonale presence: with acute cor pulmonale Chronicity: acute Pulmonary embolism type: unspecified Anemia D64.9 Anemia type: unspecified type Hypoxia R09.02 Cor pulmonale, acute I26.09
[2023-03-24] MEDS ORDERED: SODIUM CHLORIDE 0.9% 250 ML IV PRN (16:57)
[2023-03-24 19:53] LABS: Partial Thromboplastin Time 28.3 Seconds (21.0-31.0)
[2023-03-24 20:22] LABS: Appearance Urine Turbid (Clear); Bacteria Urine Automated 1+ (Negative); Bilirubin Urine Negative (Negative); Blood Urine 3+ (Negative); Color Urine Dark Yellow; Epithelial Cell Urine Auto >30 /lpf (0-5); Glucose Urine UA Negative (Negative); Ketones Urine Negative (Negative); Leukocyte Esterase Urine 1+ (Negative); Nitrite Urine Negative (Negative); Protein Urine 2+ (Negative); Specific Gravity Urine > 1.045 (1.000-1.030); Urobilinogen Urine Negative (Negative); WBC Urine Automated >30 /hpf (0-5); pH Urine 5.5 (4.5-7.5)
[2023-03-24 20:40] LABS: Cast Urine Automated 0 /lpf (0-5)
[2023-03-24 21:55] LABS: Hemoglobin 7.4 g/dl (12.0-16.0)
[2023-03-24] MEDS ORDERED: cefTRIAXone SODIUM 1,000 MG in DEXTROSE 5% AD-VAN 50 ML IV SCH (22:15)
--- NOTE | 2023-03-24 22:20 | Ultrasound Report ---
ULTRASOUND BILATERAL LOWER EXTREMITY VENOUS CLINICAL HISTORY: Pulmonary emboli. COMPARISON STUDY: No priors. TECHNIQUE: Real-time, grayscale, and color Doppler sonography of the deep veins of the right and left lower extremity was performed from the inguinal crease to the calf. Compression and augmentation wer e utilized. FINDINGS: There is no sonographic evidence of deep venous thrombosis identified in the right or left lower extremity. The common femoral, superficial femoral, and popliteal veins are patent and normally compressible bilaterally. The greater saphenous vein and the profunda femoris vein at the junction w ith the common femoral vein are clear in both legs. The visualized calf veins are patent bilaterally. IMPRESSION: There is no sonographic evidence of deep venous thrombosis identified in the right or lef t lower extremity. ACT 112: Negative or not required by law. Electronically signed by: Jeremy Carlton M.D. 03/24/2023 10:18 PM
[2023-03-24] MEDS: cefTRIAXone SODIUM 2,000 MG in DEXTROSE 5% 50 ML IV SCH (23:09)
--- NOTE | 2023-03-24 23:22 | Electrocardiogram Report ---
Test Reason : Blood Pressure : / mmHG Vent. Rate : 111 BPM Atrial Rate : 111 BPM P-R Int : 116 ms QRS Dur : 090 ms QT Int : 346 ms P-R-T Axes : 050 036 006 degrees QTc Int : 470 ms Sinus tachycardia Nonspecific T wave abnormality No previous ECGs available Confirmed by David Gayle ([id number]) on 03/24/2023 11:21:41 PM Referred By: Jackie Rangel Confirmed By:David Gayle
[2023-03-25 02:44] LABS: Albumin Globulin Ratio 0.9 (0.9-2); Albumin Level 3.4 gm/dl (3.4-5.0); BUN Creatinine Ratio 19.8 (10-20); Bilirubin,Total 0.6 mg/dl (0.2-1.0); Calcium 8.6 mg/dl (8.6-10.3); Creatinine Clr Calc Pharmacy 100.7 ml/min; Est GFR (African American) 96.8 ml/min; Est GFR (Non-African American) 83.5 ml/min; Globulin 3.7 gm/dl (2.5-4.0); Magnesium 1.8 mg/dl (1.7-2.4); Potassium 4.2 mmol/L (3.5-5.1); Total Protein 7.1 gm/dl (6.0-8.3)
[2023-03-25 02:45] LABS: Hemoglobin 6.6 g/dl (12.0-16.0); Mean Corpuscular Hemoglobin 16.1 pg (25.0-34.0); Mean Corpuscular Hgb Conc 25.4 g/dL (32.0-36.0); Mean Corpuscular Volume 63.6 fL (80.0-100.0); Platelet Count 321 K/uL (130-400); RDW Coefficient of Variation 18.3 % (11.5-14.5); Red Blood Count 4.09 M/uL (4.20-5.40); White Blood Count 11.04 K/ul (4.8-10.8)
[2023-03-25 02:54] LABS: Partial Thromboplastin Ratio 1.2
[2023-03-25] MEDS ORDERED: SODIUM CHLORIDE 0.9% 250 ML IV PRN (02:58)
[2023-03-25] MEDS ORDERED: ACETAMINOPHEN 325 MG TAB PO ONE (03:00)
[2023-03-25] MEDS ORDERED: HEPARIN IV BOLUS 3,000 UNITS in SYRINGE 0 ML IV ONE (03:30)
--- NOTE | 2023-03-25 05:33 | CT Scan Report ---
Exam(s): CT ABDOMEN + PELVIS Without Contrast EXAM: CT Abdomen and Pelvis Without Intravenous Contrast CLINICAL HISTORY: Reason for exam: anemia. on iv heparin.. TECHNIQUE: Axial computed tomography images of the abdomen and pelvis without intravenous contrast. CTDI is 16.57 mGy and DLP is 863.44 mGy-cm. Automated exposure control was utilized for the study. A dose lowering technique was utilized adhering to the principles of ALARA. COMPARISON: No relevant prior studies available. FINDINGS: Lung bases: Unremarkable. No mass. No consolidation. ABDOMEN: Liver: Unremarkable. Gallbladder and bile ducts: Unremarkable. No calcified stones. No ductal dilation. Pancreas: Unremarkable. No ductal dilation. Spleen: Unremarkable. No splenomegaly. Adrenals: Unremarkable. No mass. Kidneys and ureters: Limited evaluation in the absence of intravenous contrast. Suspected excretory phase within the kidneys which may be due to prior contrast-enhanced administration. No evidence of radiopaque renal calculi or signs of collecting system dilatation. Stomach and bowel: Unremarkable. No mucosal thickening. No evidence of bowel obstruction. PELVIS: Appendix: Normal appendix. Bladder: Contrast within the bladder. No stones. Reproductive: Right ovarian mass measuring 2.3 cm and left ovarian mass measuring 2.4 cm. These measure beyond that of simple fluid. Consider pelvic ultrasound if there is further concern. ABDOMEN and PELVIS: Intraperitoneal space: Unremarkable. No free air. No significant fluid collection. Bones/joints: Degenerative changes in the spine. No acute fracture. No dislocation. Soft tissues: Umbilical hernia containing fat. Vasculature: Unremarkable. No abdominal aortic aneurysm. Lymph nodes: Unremarkable. No enlarged lymph nodes. IMPRESSION: 1. Limited evaluation in the absence of intravenous contrast. Suspected excretory phase within the kidneys which may be due to prior contrast- enhanced administration. 2. Right ovarian mass measuring 2.3 cm and left ovarian mass measuring 2. 4 cm. These measure beyond that of simple fluid, though likely relate to cysts. Consider pelvic ultrasound if there is further concern. 3. No other acute findings. 4. Incidental findings as described. Electronically signed by: Raymundo Billingsley MD 03/25/23 05:32 AM
[2023-03-25] MEDS: HEPARIN SODIUM/DEXTROSE 25,000 UNITS/500 ML BAG IV SCH ×2 (06:11→16:31)
[2023-03-25] MEDS ORDERED: FUROSEMIDE INJ 20 MG/2 ML VIAL IV ONE (06:30)
[2023-03-25 07:27] LABS: Estimated Average Glucose 105 mg/dl; Hemoglobin A1C 5.3 % (4.5-5.6)
[2023-03-25 08:03] LABS: Hematocrit (blood only) 29.4 % (37.0-47.0); Hemoglobin 7.8 g/dl (12.0-16.0); Mean Corpuscular Hemoglobin 16.9 pg (25.0-34.0); Mean Corpuscular Hgb Conc 26.5 g/dL (32.0-36.0); Mean Corpuscular Volume 63.6 fL (80.0-100.0); Mean Platelet Volume 9.9 fL (9.4-12.4); Nucleated RBC # (auto) 0.03 K/uL (0-0.12); Nucleated RBC % (auto) 0.3 %; Platelet Count 381 K/uL (130-400); RDW Coefficient of Variation 20.1 % (11.5-14.5); RDW Standard Deviation 43.3 fL (36.4-46.3); Red Blood Count 4.62 M/uL (4.20-5.40); White Blood Count 10.24 K/ul (4.8-10.8)
[2023-03-25 08:09] LABS: BUN Creatinine Ratio 20.3 (10-20); Calcium 9.1 mg/dl (8.6-10.3); Est GFR (African American) 114.8 ml/min; Est GFR (Non-African American) 99.1 ml/min
--- NOTE | 2023-03-25 08:10 | Pulmonology Progress Note ---
Date of Service March 25, 2023 Assessment & Plan (1) Pulmonary embolism: Acute cor pulmonale presence: with acute cor pulmonale Chronicity: acute Pulmonary embolism type: unspecified Qualified Code(s): I26.09 - Other pulmonary embolism with acute cor pulmonale (2) Anemia: Anemia type: unspecified type Qualified Code(s): D64.9 - Anemia, unspecified (3) Hypoxia: (4) Cor pulmonale, acute: Plan Impression: 32-year-old female with acute PE with acute right-sided heart failure and anemia. She status post transfusion 1 unit of packed cells early this morning with posttransfusion hematocrit pending. She remains hemodynamically stable with improvement in her oxygen requirement blood pressure and heart rate. Recommendations: 1. Acute PE with right-sided heart strain. The patient is hemodynamically stable currently. She has elevated biomarkers including a troponin and BNP which place her at an increased risk. No indication for thrombolytics currently. Would continue heparin. She needs to maintain heparin infusion for 3 to 4 days at which point time she can transition to an oral anticoagulant. Given the extensive nature of her clot and idiopathic nature of her clot, could make a strong case for lifelong anticoagulation. If not, would complete 6 months of anticoagulation and then follow-up with hematology for consideration of thrombophilia evaluation. 2. Acute cor pulmonale: Well compensated currently. We will continue to follow on telemetry. If she develops syncope, presyncope, dizziness lightheadedness, increasing oxygen requirement, low blood pressure, or progressive tachycardia, would have a low threshold for consideration of salvage lytics. Would recommend follow-up echocardiogram in 3 months to ensure she is responding appropriately. 3. Anemia: Per primary. Reticulocyte count is inappropriately low. Check LDH, haptoglobin, and Brett. She received transfusion yesterday which should have repleted her iron stores. Given the ovarian cysts and potential polycystic ovarian disease with menorrhagia, consider [employer] consultation. Hematology consultation may also be beneficial. 4. Hypoxemia: Secondary to #1 and #3. Continue oxygen to keep saturations at or above 88% We will continue to follow with you. Feel free to contact us with questions or concerns. Admission and Anticipated Discharge Date Admission Date: March 24, 2023 Subjective Patient seen and examined. EMR reviewed. The patient is feeling slightly better today. She had a CT the abdomen pelvis performed last night. She did receive 1 unit of packed cells. Posttransfusion crit is pending. She denies any chest pain palpitations syncope or presyncope. No dizziness or lightheadedness. No lower extremity edema. She is not really been active so is unclear whether her dyspnea on exertion is improved or not. No abdominal pain. Review of Systems Review of Systems: All systems reviewed & are unremarkable except as noted in Subjective Physical Exam Constitutional: WD/WN, vitals as above Neck: trachea midline, no thyromegaly Respiratory: normal respiratory effort, lungs clear to auscultation Cardiovascular: Rate/Rhythm: + tachycardic Heart Sounds: normal S1 and normal S2; + abnormal physiologic split S2, no gallop and no murmur Extremities: no edema Gastrointestinal (Abdomen): normal bowel sounds, soft, nontender, no hepatosplenomegaly Musculoskeletal: Extremities: extremities normal to inspection Skin: no rashes, warm and dry Lymphatic: no cervical lymphadenopathy Results & Data Results & Data Vital Signs (Past 12 Hours) Vital Signs Temp Pulse Pulse Resp BP BP Pulse Ox 03/25/23 08:00 36.8 C 87 18 124/85 97 03/25/23 06:55 36.8 C 98 H 18 131/95 97 03/25/23 05:00 36.8 C 98 H 18 131/95 97 03/25/23 04:30 36.7 C 96 H 18 129/94 97 03/25/23 04:15 36.8 C 98 H 18 126/90 97 03/25/23 03:58 36.8 C 97 H 18 129/92 97 03/25/23 03:22 36.7 C 101 H 22 129/101 H 98 03/24/23 23:53 101 H 03/24/23 23:15 36.7 C 96 H 20 128/86 97 03/24/23 20:15 O2 Del Method O2 Flow Rate 03/25/23 08:00 Nasal Cannula 2 03/25/23 06:55 2 03/25/23 05:00 2 03/25/23 04:30 2 03/25/23 04:15 2 03/25/23 03:58 2 03/25/23 03:22 Nasal Cannula 2 03/24/23 23:53 03/24/23 23:15 Nasal Cannula 2 03/24/23 20:15 Nasal Cannula 2 Laboratory Results 03/25/23 06:42 03/25/23 06:[address] of the abdomen pelvis: Bilateral ovarian cysts noted. No evidence of retroperitoneal hematoma. Spleen does appear mildly enlarged. PG Care Time/CCT Total # of Minutes Spent Total Time Spent with Patient: Total time spent is greater than 50% in coordination of care (as documented) at patient's floor/unit and/or counseling patient: Coding Level of Care Code 54634 SUB INP/OBS CARE 2/35MIN Diagnoses Pulmonary embolism I26.09 Acute cor pulmonale presence: with acute cor pulmonale Chronicity: acute Pulmonary embolism type: unspecified Anemia D64.9 Anemia type: unspecified type Hypoxia R09.02 Cor pulmonale, acute I26.09
[2023-03-25 08:11] LABS: Basophils # (auto) 0.05 K/uL (0-0.2); Basophils % (auto) 0.5 %; Eosinophils # (auto) 0.04 K/uL (0-0.50); Eosinophils % (auto) 0.4 %; Hypochromasia Present; Immature Granulocytes # (auto) 0.03 K/uL (0.01-0.20); Immature Granulocytes % (auto) 0.3 %; Lymphocytes # (auto) 2.72 K/uL (1.2-3.4); Lymphocytes % (auto) 26.6 %; Microcytosis Present; Monocytes # (auto) 0.47 K/uL (0.11-0.59); Monocytes % (auto) 4.6 %; Neutrophils # (auto) 6.93 K/uL (1.40-6.50); Neutrophils % (auto) 67.6 %; Polychromasia 1+
[2023-03-25 08:19] LABS: Partial Thromboplastin Ratio 1.4; Partial Thromboplastin Time 38.2 Seconds (21.0-31.0)
[2023-03-25] MEDS: FLUoxetine HCL 10 MG CAP PO SCH (08:20)
--- NOTE | 2023-03-25 09:45 | Hospitalist Progress Note ---
Date of Service March 25, 2023 Assessment & Plan (1) Pulmonary embolism: (2) Hypoxia: (3) Anemia: (4) Depression: Plan 32 year old F with acute SOB that started on Tuesday. Chest CTA bilateral PE. Heparin gtt ordered. Anemic 7.8; anemia panel pending. May have underlying coagulopathy issues to investigate once off Heparin infusion. 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 Pulmonary Embolism: SOB since Tuesday Hypoxic 86% ; on 2LNC D-Dimer 4390 Chest CTA: large clot burden. Emboli within the right pulmonary artery as well as emboli extending into the lobes of both lungs. Many lobar pulmonary emboli are occlusive. No pulmonary infarct is present. There is straightening of the interventricular septum. There is possible thrombus within the right ventricle which measures up to 2.6 cm. Heparin gtt with bolus started ECHO obtained - + cardiac thrombus Pulmonary consultation; appreciate recommendations as outlined here: Per Pulmonary; recommend heparin for 3-4 days prior to transition to oral anticoagulant. Given the extensive nature of her clot and idiopathic nature of her clot, could make a strong case for lifelong anticoagulation. If not, would complete 6 months of anticoagulation and then follow-up with hematology for consideration of thrombophilia evaluation. Anemia: Hgb 7.8; will trend and transfuse if reaches 7.0; next CBC at 2100 Anemia panel and FOBT heavy menstrual cycles since October 2022 Started OCP at that time Pale conjunctiva and lips transfused 1unit of pRBC Hematology , [employer] consulted Depression: takes Prozac; continue Disposition: PCP: Dr. Barnes Code Status: Full Code VTE Prophylaxis: On Heparin gtt Admission and Anticipated Discharge Date Admission Date: March 24, 2023 Subjective Pt seen in follow up of PE, cor pulmonale, anemia Currently sitting up in bed in NAD, on suppl. O2, breathing comfortably at this time IV heparin No chest pain No fever, chills Feels improved since admission Pt's mother at the bedside Review of Systems Review of Systems: All systems reviewed & are unremarkable except as noted in Subjective Physical Exam Physical Exam: General: obese young F on suppl. O2, in NAD HEENT: NC/AT. head normocephalic, moist mucus membranes. pale conjunctiva and lips CV: S1/S2, (-) M/G/R, (-) edema Resp: Lungs decreased in all lobes. on 2LNC GI: Abdomen S/NT/ND, obese, +bowel sounds Musculoskeletal: moves extremities Neuro: AAOx3, PERRL, speech fluent, moves extremities Skin: (-) rashes , (-) erythema. pale Psych: euthymic Results & Data Results & Data Vital Signs (Past 12 Hours) Vital Signs Temp Pulse Pulse Resp BP BP Pulse Ox 03/25/23 08:00 90 03/25/23 08:00 03/25/23 08:00 36.8 C 87 18 124/85 97 03/25/23 06:55 36.8 C 98 H 18 131/95 97 03/25/23 05:00 36.8 C 98 H 18 131/95 97 03/25/23 04:30 36.7 C 96 H 18 129/94 97 03/25/23 04:15 36.8 C 98 H 18 126/90 97 03/25/23 03:58 36.8 C 97 H 18 129/92 97 03/25/23 03:22 36.7 C 101 H 22 129/101 H 98 03/24/23 23:53 101 H 03/24/23 23:15 36.7 C 96 H 20 128/86 97 O2 Del Method O2 Flow Rate 03/25/23 08:00 03/25/23 08:00 Nasal Cannula 2 03/25/23 08:00 Nasal Cannula 2 03/25/23 06:55 2 03/25/23 05:00 2 03/25/23 04:30 2 03/25/23 04:15 2 03/25/23 03:58 2 03/25/23 03:22 Nasal Cannula 2 03/24/23 23:53 03/24/23 23:15 Nasal Cannula 2 Laboratory Results 03/25/23 03/25/23 03/25/23 Range/Units 09:22 09:22 09:22 WBC (4.8-10.8) K/ul RBC (4.20-5.40) M/uL Hgb (12.0-16.0) g/dl Hct (37.0-47.0) % MCV (80.0-100.0) fL MCH (25.0-34.0) pg MCHC (32.0-36.0) g/dL RDW Std Deviation (36.4-46.3) fL RDW Coeff of Radha (11.5-14.5) % Plt Count (130-400) K/uL MPV (9.4-12.4) fL Immature Gran % (Auto) % Neut % (Auto) % Lymph % (Auto) % [place] % (Auto) % Eos % (Auto) % Baso % (Auto) % Reticulocyte % (Auto) (0.5-2.0) % Neut # (Auto) (1.40-6.50) K/uL Lymph # (Auto) (1.2-3.4) K/uL [place] # (Auto) (0.11-0.59) K/uL Eos # (Auto) (0-0.50) K/uL Baso # (Auto) (0-0.2) K/uL Reticulocyte # (0.02-0.10) 10^6/uL Immature Gran # (Auto) (0.01-0.20) K/uL Absolute Nucleated RBC (0-0.12) K/uL Nucleated RBC % (auto) % Polychromasia Hypochromasia Microcytosis Haptoglobin Pending PT (9.0-12.0) Seconds INR (0.9-1.1) APTT Pending (21.0-31.0) Seconds PTT Ratio Pending D-Dimer (0-500) ug/L FEU VBG pH (7.36-7.41) VBG pCO2 (38-50) mmHg VBG pO2 mmHg VBG HCO3 mmol/L VBG O2 Saturation % VBG Base Excess mEq/L Methemoglobin (0.0-1.5) % Sodium (136-145) mmol/L Potassium (3.5-5.1) mmol/L Chloride (98-107) mmol/L Carbon Dioxide (21-32) mmol/L Anion Gap (3-11) BUN (6-23) mg/dl Creatinine (0.6-1.2) mg/dl Est Cr Clr Drug Dosing ml/min Est GFR ( Amer) ml/min Est GFR (Non-Af Amer) ml/min BUN/Creatinine Ratio (10-20) Glucose (70-99(Fasting)) mg/dl Estimat Average Glucose mg/dl Hemoglobin A1c (4.5-5.6) % Calcium (8.6-10.3) mg/dl Magnesium (1.7-2.4) mg/dl Unsaturated IBC (155-355) mcg/dl Ferritin (8-388) ng/ml Total Bilirubin (0.2-1.0) mg/dl AST (13-39) U/L ALT (7-52) U/L Alkaline Phosphatase (34-104) U/L Lactate Dehydrogenase Pending Troponin I High Sens (0-14) pg/ml B-Natriuretic Peptide (0-100) pg/ml Total Protein (6.0-8.3) gm/dl Albumin (3.4-5.0) gm/dl Globulin (2.5-4.0) gm/dl Albumin/Globulin Ratio (0.9-2) Vitamin B12 (180-914) pg/ml Folate (>5.38) ng/ml HCG, Qual (Negative) Urine Color Urine Appearance (Clear) Urine pH (4.5-7.5) Ur Specific [place] (1.000-1.030) Urine Protein (Negative) Urine Glucose (UA) (Negative) Urine Ketones (Negative) Urine Blood (Negative) Urine Nitrite (Negative) Urine Bilirubin (Negative) Urine Urobilinogen (Negative) Ur Leukocyte Esterase (Negative) Urine WBC (Auto) (0-5) /hpf Urine RBC (Auto) (0-4) /hpf U Hyaline Cast (Auto) (0-5) /lpf U Epithel Cells (Auto) (0-5) /lpf Urine Bacteria (Auto) (Negative) SARS-CoV-2 (PCR) (Negative) Influenza Type A (PCR) (Neg) Influenza Type B (PCR) (Neg) RSV (RT-PCR) (Neg) Blood Type Blood Type Recheck Antibody Screen Direct Antiglob Test (Negative) FRANCO (IgG-AHG) (Negative) FRANCO, Polyspecific (Negative) FRANCO C3b, C3d 5 Min (Negative) Crossmatch 03/25/23 03/25/23 03/25/23 Range/Units 06:42 06:42 06:42 WBC 10.24 (4.8-10.8) K/ul RBC 4.62 (4.20-5.40) M/uL Hgb 7.8 L (12.0-16.0) g/dl Hct 29.4 L (37.0-47.0) % MCV 63.6 L (80.0-100.0) fL MCH 16.9 L (25.0-34.0) pg MCHC 26.5 L (32.0-36.0) g/dL RDW Std Deviation 43.3 (36.4-46.3) fL RDW Coeff of Radha 20.1 H (11.5-14.5) % Plt Count 381 (130-400) K/uL MPV 9.9 (9.4-12.4) fL Immature Gran % (Auto) 0.3 % Neut % (Auto) 67.6 % Lymph % (Auto) 26.6 % [place] % (Auto) 4.6 % Eos % (Auto) 0.4 % Baso % (Auto) 0.5 % Reticulocyte % (Auto) (0.5-2.0) % Neut # (Auto) 6.93 H (1.40-6.50) K/uL Lymph # (Auto) 2.72 (1.2-3.4) K/uL [place] # (Auto) 0.47 (0.11-0.59) K/uL Eos # (Auto) 0.04 (0-0.50) K/uL Baso # (Auto) 0.05 (0-0.2) K/uL Reticulocyte # (0.02-0.10) 10^6/uL Immature Gran # (Auto) 0.03 (0.01-0.20) K/uL Absolute Nucleated RBC 0.03 (0-0.12) K/uL Nucleated RBC % (auto) 0.3 % Polychromasia 1+ Hypochromasia Present Microcytosis Present Haptoglobin PT (9.0-12.0) Seconds INR (0.9-1.1) APTT 38.2 H (21.0-31.0) Seconds PTT Ratio 1.4 D-Dimer (0-500) ug/L FEU VBG pH (7.36-7.41) VBG pCO2 (38-50) mmHg VBG pO2 mmHg VBG HCO3 mmol/L VBG O2 Saturation % VBG Base Excess mEq/L Methemoglobin (0.0-1.5) % Sodium 137 (136-145) mmol/L Potassium 4.0 (3.5-5.1) mmol/L Chloride 105 (98-107) mmol/L Carbon Dioxide 21 (21-32) mmol/L Anion Gap 11 (3-11) BUN 16 (6-23) mg/dl Creatinine 0.79 (0.6-1.2) mg/dl Est Cr Clr Drug Dosing 116.0 ml/min Est GFR ( Amer) 114.8 ml/min Est GFR (Non-Af Amer) 99.1 ml/min BUN/Creatinine Ratio 20.3 H (10-20) Glucose 107 H (70-99(Fasting)) mg/dl Estimat Average Glucose mg/dl Hemoglobin A1c (4.5-5.6) % Calcium 9.1 (8.6-10.3) mg/dl Magnesium (1.7-2.4) mg/dl Unsaturated IBC (155-355) mcg/dl Ferritin (8-388) ng/ml Total Bilirubin (0.2-1.0) mg/dl AST (13-39) U/L ALT (7-52) U/L Alkaline Phosphatase (34-104) U/L Lactate Dehydrogenase Troponin I High Sens (0-14) pg/ml B-Natriuretic Peptide (0-100) pg/ml Total Protein (6.0-8.3) gm/dl Albumin (3.4-5.0) gm/dl Globulin (2.5-4.0) gm/dl Albumin/Globulin Ratio (0.9-2) Vitamin B12 (180-914) pg/ml Folate (>5.38) ng/ml HCG, Qual (Negative) Urine Color Urine Appearance (Clear) Urine pH (4.5-7.5) Ur Specific [place] (1.000-1.030) Urine Protein (Negative) Urine Glucose (UA) (Negative) Urine Ketones (Negative) Urine Blood (Negative) Urine Nitrite (Negative) Urine Bilirubin (Negative) Urine Urobilinogen (Negative) Ur Leukocyte Esterase (Negative) Urine WBC (Auto) (0-5) /hpf Urine RBC (Auto) (0-4) /hpf U Hyaline Cast (Auto) (0-5) /lpf U Epithel Cells (Auto) (0-5) /lpf Urine Bacteria (Auto) (Negative) SARS-CoV-2 (PCR) (Negative) Influenza Type A (PCR) (Neg) Influenza Type B (PCR) (Neg) RSV (RT-PCR) (Neg) Blood Type Blood Type Recheck Antibody Screen Direct Antiglob Test (Negative) FRANCO (IgG-AHG) (Negative) FRANCO, Polyspecific (Negative) FRANCO C3b, C3d 5 Min (Negative) Crossmatch 03/25/23 03/25/23 03/25/23 Range/Units 02:14 02:14 02:14 WBC (4.8-10.8) K/ul RBC (4.20-5.40) M/uL Hgb (12.0-16.0) g/dl Hct (37.0-47.0) % MCV (80.0-100.0) fL MCH (25.0-34.0) pg MCHC (32.0-36.0) g/dL RDW Std Deviation (36.4-46.3) fL RDW Coeff of Radha (11.5-14.5) % Plt Count (130-400) K/uL MPV (9.4-12.4) fL Immature Gran % (Auto) % Neut % (Auto) % Lymph % (Auto) % [place] % (Auto) % Eos % (Auto) % Baso % (Auto) % Reticulocyte % (Auto) (0.5-2.0) % Neut # (Auto) (1.40-6.50) K/uL Lymph # (Auto) (1.2-3.4) K/uL [place] # (Auto) (0.11-0.59) K/uL Eos # (Auto) (0-0.50) K/uL Baso # (Auto) (0-0.2) K/uL Reticulocyte # (0.02-0.10) 10^6/uL Immature Gran # (Auto) (0.01-0.20) K/uL Absolute Nucleated RBC (0-0.12) K/uL Nucleated RBC % (auto) % Polychromasia Hypochromasia Microcytosis Haptoglobin PT (9.0-12.0) Seconds INR (0.9-1.1) APTT 33.0 H (21.0-31.0) Seconds PTT Ratio 1.2 D-Dimer (0-500) ug/L FEU VBG pH (7.36-7.41) VBG pCO2 (38-50) mmHg VBG pO2 mmHg VBG HCO3 mmol/L VBG O2 Saturation % VBG Base Excess mEq/L Methemoglobin (0.0-1.5) % Sodium 136 (136-145) mmol/L Potassium 4.2 (3.5-5.1) mmol/L Chloride 106 (98-107) mmol/L Carbon Dioxide 22 (21-32) mmol/L Anion Gap 8 (3-11) BUN 18 (6-23) mg/dl Creatinine 0.91 (0.6-1.2) mg/dl Est Cr Clr Drug Dosing 100.7 ml/min Est GFR ( Amer) 96.8 ml/min Est GFR (Non-Af Amer) 83.5 ml/min BUN/Creatinine Ratio 19.8 (10-20) Glucose 112 H (70-99(Fasting)) mg/dl Estimat Average Glucose 105 mg/dl Hemoglobin A1c 5.3 (4.5-5.6) % Calcium 8.6 (8.6-10.3) mg/dl Magnesium 1.8 (1.7-2.4) mg/dl Unsaturated IBC (155-355) mcg/dl Ferritin (8-388) ng/ml Total Bilirubin 0.6 (0.2-1.0) mg/dl AST 14 (13-39) U/L ALT 20 (7-52) U/L Alkaline Phosphatase 48 (34-104) U/L Lactate Dehydrogenase Troponin I High Sens (0-14) pg/ml B-Natriuretic Peptide (0-100) pg/ml Total Protein 7.1 (6.0-8.3) gm/dl Albumin 3.4 (3.4-5.0) gm/dl Globulin 3.7 (2.5-4.0) gm/dl Albumin/Globulin Ratio 0.9 (0.9-2) Vitamin B12 (180-914) pg/ml Folate (>5.38) ng/ml HCG, Qual (Negative) Urine Color Urine Appearance (Clear) Urine pH (4.5-7.5) Ur Specific [place] (1.000-1.030) Urine Protein (Negative) Urine Glucose (UA) (Negative) Urine Ketones (Negative) Urine Blood (Negative) Urine Nitrite (Negative) Urine Bilirubin (Negative) Urine Urobilinogen (Negative) Ur Leukocyte Esterase (Negative) Urine WBC (Auto) (0-5) /hpf Urine RBC (Auto) (0-4) /hpf U Hyaline Cast (Auto) (0-5) /lpf U Epithel Cells (Auto) (0-5) /lpf Urine Bacteria (Auto) (Negative) SARS-CoV-2 (PCR) (Negative) Influenza Type A (PCR) (Neg) Influenza Type B (PCR) (Neg) RSV (RT-PCR) (Neg) Blood Type Blood Type Recheck Antibody Screen Direct Antiglob Test (Negative) FRANCO (IgG-AHG) (Negative) FRANCO, Polyspecific (Negative) FRANCO C3b, C3d 5 Min (Negative) Crossmatch 03/25/23 03/24/23 03/24/23 Range/Units 02:14 Unknown 19:05 WBC 11.04 H (4.8-10.8) K/ul RBC 4.09 L (4.20-5.40) M/uL Hgb 6.6 L* 7.4 L (12.0-16.0) g/dl Hct 26.0 L 29.0 L (37.0-47.0) % MCV 63.6 L (80.0-100.0) fL MCH 16.1 L (25.0-34.0) pg MCHC 25.4 L (32.0-36.0) g/dL RDW Std Deviation 41.0 (36.4-46.3) fL RDW Coeff of Radha 18.3 H (11.5-14.5) % Plt Count 321 (130-400) K/uL MPV 10.0 (9.4-12.4) fL Immature Gran % (Auto) % Neut % (Auto) % Lymph % (Auto) % [place] % (Auto) % Eos % (Auto) % Baso % (Auto) % Reticulocyte % (Auto) (0.5-2.0) % Neut # (Auto) (1.40-6.50) K/uL Lymph # (Auto) (1.2-3.4) K/uL [place] # (Auto) (0.11-0.59) K/uL Eos # (Auto) (0-0.50) K/uL Baso # (Auto) (0-0.2) K/uL Reticulocyte # (0.02-0.10) 10^6/uL Immature Gran # (Auto) (0.01-0.20) K/uL Absolute Nucleated RBC (0-0.12) K/uL Nucleated RBC % (auto) % Polychromasia Hypochromasia Microcytosis Haptoglobin PT (9.0-12.0) Seconds INR (0.9-1.1) APTT (21.0-31.0) Seconds PTT Ratio D-Dimer (0-500) ug/L FEU VBG pH (7.36-7.41) VBG pCO2 (38-50) mmHg VBG pO2 mmHg VBG HCO3 mmol/L VBG O2 Saturation % VBG Base Excess mEq/L Methemoglobin (0.0-1.5) % Sodium (136-145) mmol/L Potassium (3.5-5.1) mmol/L Chloride (98-107) mmol/L Carbon Dioxide (21-32) mmol/L Anion Gap (3-11) BUN (6-23) mg/dl Creatinine (0.6-1.2) mg/dl Est Cr Clr Drug Dosing ml/min Est GFR ( Amer) ml/min Est GFR (Non-Af Amer) ml/min BUN/Creatinine Ratio (10-20) Glucose (70-99(Fasting)) mg/dl Estimat Average Glucose mg/dl Hemoglobin A1c (4.5-5.6) % Calcium (8.6-10.3) mg/dl Magnesium (1.7-2.4) mg/dl Unsaturated IBC (155-355) mcg/dl Ferritin (8-388) ng/ml Total Bilirubin (0.2-1.0) mg/dl AST (13-39) U/L ALT (7-52) U/L Alkaline Phosphatase (34-104) U/L Lactate Dehydrogenase Troponin I High Sens (0-14) pg/ml B-Natriuretic Peptide (0-100) pg/ml Total Protein (6.0-8.3) gm/dl Albumin (3.4-5.0) gm/dl Globulin (2.5-4.0) gm/dl Albumin/Globulin Ratio (0.9-2) Vitamin B12 (180-914) pg/ml Folate (>5.38) ng/ml HCG, Qual (Negative) Urine Color Dark Yellow Urine Appearance Turbid A (Clear) Urine pH 5.5 (4.5-7.5) Ur Specific [place] > 1.045 H (1.000-1.030) Urine Protein 2+ H (Negative) Urine Glucose (UA) Negative (Negative) Urine Ketones Negative (Negative) Urine Blood 3+ H (Negative) Urine Nitrite Negative (Negative) Urine Bilirubin Negative (Negative) Urine Urobilinogen Negative (Negative) Ur Leukocyte Esterase 1+ H (Negative) Urine WBC (Auto) >30 H (0-5) /hpf Urine RBC (Auto) 10-30 H (0-4) /hpf U Hyaline Cast (Auto) 0 (0-5) /lpf U Epithel Cells (Auto) >30 H (0-5) /lpf Urine Bacteria (Auto) 1+ H (Negative) SARS-CoV-2 (PCR) (Negative) Influenza Type A (PCR) (Neg) Influenza Type B (PCR) (Neg) RSV (RT-PCR) (Neg) Blood Type Blood Type Recheck Antibody Screen Direct Antiglob Test (Negative) FRANCO (IgG-AHG) (Negative) FRANCO, Polyspecific (Negative) FRANCO C3b, C3d 5 Min (Negative) Crossmatch 03/24/23 03/24/23 03/24/23 Range/Units 19:03 16:48 16:48 WBC (4.8-10.8) K/ul RBC (4.20-5.40) M/uL Hgb (12.0-16.0) g/dl Hct (37.0-47.0) % MCV (80.0-100.0) fL MCH (25.0-34.0) pg MCHC (32.0-36.0) g/dL RDW Std Deviation (36.4-46.3) fL RDW Coeff of Radha (11.5-14.5) % Plt Count (130-400) K/uL MPV (9.4-12.4) fL Immature Gran % (Auto) % Neut % (Auto) % Lymph % (Auto) % [place] % (Auto) % Eos % (Auto) % Baso % (Auto) % Reticulocyte % (Auto) (0.5-2.0) % Neut # (Auto) (1.40-6.50) K/uL Lymph # (Auto) (1.2-3.4) K/uL [place] # (Auto) (0.11-0.59) K/uL Eos # (Auto) (0-0.50) K/uL Baso # (Auto) (0-0.2) K/uL Reticulocyte # (0.02-0.10) 10^6/uL Immature Gran # (Auto) (0.01-0.20) K/uL Absolute Nucleated RBC (0-0.12) K/uL Nucleated RBC % (auto) % Polychromasia Hypochromasia Microcytosis Haptoglobin PT (9.0-12.0) Seconds INR (0.9-1.1) APTT 28.3 (21.0-31.0) Seconds PTT Ratio 1.0 D-Dimer (0-500) ug/L FEU VBG pH (7.36-7.41) VBG pCO2 (38-50) mmHg VBG pO2 mmHg VBG HCO3 mmol/L VBG O2 Saturation % VBG Base Excess mEq/L Methemoglobin (0.0-1.5) % Sodium (136-145) mmol/L Potassium (3.5-5.1) mmol/L Chloride (98-107) mmol/L Carbon Dioxide (21-32) mmol/L Anion Gap (3-11) BUN (6-23) mg/dl Creatinine (0.6-1.2) mg/dl Est Cr Clr Drug Dosing ml/min Est GFR ( Amer) ml/min Est GFR (Non-Af Amer) ml/min BUN/Creatinine Ratio (10-20) Glucose (70-99(Fasting)) mg/dl Estimat Average Glucose mg/dl Hemoglobin A1c (4.5-5.6) % Calcium (8.6-10.3) mg/dl Magnesium (1.7-2.4) mg/dl Unsaturated IBC (155-355) mcg/dl Ferritin (8-388) ng/ml Total Bilirubin (0.2-1.0) mg/dl AST (13-39) U/L ALT (7-52) U/L Alkaline Phosphatase (34-104) U/L Lactate Dehydrogenase Troponin I High Sens 243.9 H* (0-14) pg/ml B-Natriuretic Peptide 564 H (0-100) pg/ml Total Protein (6.0-8.3) gm/dl Albumin (3.4-5.0) gm/dl Globulin (2.5-4.0) gm/dl Albumin/Globulin Ratio (0.9-2) Vitamin B12 (180-914) pg/ml Folate (>5.38) ng/ml HCG, Qual (Negative) Urine Color Urine Appearance (Clear) Urine pH (4.5-7.5) Ur Specific [place] (1.000-1.030) Urine Protein (Negative) Urine Glucose (UA) (Negative) Urine Ketones (Negative) Urine Blood (Negative) Urine Nitrite (Negative) Urine Bilirubin (Negative) Urine Urobilinogen (Negative) Ur Leukocyte Esterase (Negative) Urine WBC (Auto) (0-5) /hpf Urine RBC (Auto) (0-4) /hpf U Hyaline Cast (Auto) (0-5) /lpf U Epithel Cells (Auto) (0-5) /lpf Urine Bacteria (Auto) (Negative) SARS-CoV-2 (PCR) (Negative) Influenza Type A (PCR) (Neg) Influenza Type B (PCR) (Neg) RSV (RT-PCR) (Neg) Blood Type Blood Type Recheck Antibody Screen Direct Antiglob Test (Negative) FRANCO (IgG-AHG) (Negative) FRANCO, Polyspecific (Negative) FRANCO C3b, C3d 5 Min (Negative) Crossmatch 03/24/23 03/24/23 03/24/23 Range/Units 14:21 14:21 14:21 WBC (4.8-10.8) K/ul RBC (4.20-5.40) M/uL Hgb (12.0-16.0) g/dl Hct (37.0-47.0) % MCV (80.0-100.0) fL MCH (25.0-34.0) pg MCHC (32.0-36.0) g/dL RDW Std Deviation (36.4-46.3) fL RDW Coeff of Radha (11.5-14.5) % Plt Count (130-400) K/uL MPV (9.4-12.4) fL Immature Gran % (Auto) % Neut % (Auto) % Lymph % (Auto) % [place] % (Auto) % Eos % (Auto) % Baso % (Auto) % Reticulocyte % (Auto) (0.5-2.0) % Neut # (Auto) (1.40-6.50) K/uL Lymph # (Auto) (1.2-3.4) K/uL [place] # (Auto) (0.11-0.59) K/uL Eos # (Auto) (0-0.50) K/uL Baso # (Auto) (0-0.2) K/uL Reticulocyte # (0.02-0.10) 10^6/uL Immature Gran # (Auto) (0.01-0.20) K/uL Absolute Nucleated RBC (0-0.12) K/uL Nucleated RBC % (auto) % Polychromasia Hypochromasia Microcytosis Haptoglobin PT (9.0-12.0) Seconds INR (0.9-1.1) APTT (21.0-31.0) Seconds PTT Ratio D-Dimer (0-500) ug/L FEU VBG pH (7.36-7.41) VBG pCO2 (38-50) mmHg VBG pO2 mmHg VBG HCO3 mmol/L VBG O2 Saturation % VBG Base Excess mEq/L Methemoglobin (0.0-1.5) % Sodium (136-145) mmol/L Potassium (3.5-5.1) mmol/L Chloride (98-107) mmol/L Carbon Dioxide (21-32) mmol/L Anion Gap (3-11) BUN (6-23) mg/dl Creatinine (0.6-1.2) mg/dl Est Cr Clr Drug Dosing ml/min Est GFR ( Amer) ml/min Est GFR (Non-Af Amer) ml/min BUN/Creatinine Ratio (10-20) Glucose (70-99(Fasting)) mg/dl Estimat Average Glucose mg/dl Hemoglobin A1c (4.5-5.6) % Calcium (8.6-10.3) mg/dl Magnesium (1.7-2.4) mg/dl Unsaturated IBC Cancelled (155-355) mcg/dl Ferritin (8-388) ng/ml Total Bilirubin (0.2-1.0) mg/dl AST (13-39) U/L ALT (7-52) U/L Alkaline Phosphatase (34-104) U/L Lactate Dehydrogenase Troponin I High Sens (0-14) pg/ml B-Natriuretic Peptide (0-100) pg/ml Total Protein (6.0-8.3) gm/dl Albumin (3.4-5.0) gm/dl Globulin (2.5-4.0) gm/dl Albumin/Globulin Ratio (0.9-2) Vitamin B12 180 (180-914) pg/ml Folate 9.07 (>5.38) ng/ml HCG, Qual (Negative) Urine Color Urine Appearance (Clear) Urine pH (4.5-7.5) Ur Specific [place] (1.000-1.030) Urine Protein (Negative) Urine Glucose (UA) (Negative) Urine Ketones (Negative) Urine Blood (Negative) Urine Nitrite (Negative) Urine Bilirubin (Negative) Urine Urobilinogen (Negative) Ur Leukocyte Esterase (Negative) Urine WBC (Auto) (0-5) /hpf Urine RBC (Auto) (0-4) /hpf U Hyaline Cast (Auto) (0-5) /lpf U Epithel Cells (Auto) (0-5) /lpf Urine Bacteria (Auto) (Negative) SARS-CoV-2 (PCR) (Negative) Influenza Type A (PCR) (Neg) Influenza Type B (PCR) (Neg) RSV (RT-PCR) (Neg) Blood Type Blood Type Recheck A Positive Antibody Screen Direct Antiglob Test (Negative) FRANCO (IgG-AHG) (Negative) FRANCO, Polyspecific (Negative) FRANCO C3b, C3d 5 Min (Negative) Crossmatch 03/24/23 03/24/23 03/24/23 Range/Units 14:21 14:21 14:21 WBC 17.35 H (4.8-10.8) K/ul RBC 4.51 (4.20-5.40) M/uL Hgb 7.3 L (12.0-16.0) g/dl Hct 28.5 L (37.0-47.0) % MCV 63.2 L (80.0-100.0) fL MCH 16.2 L (25.0-34.0) pg MCHC 25.6 L (32.0-36.0) g/dL RDW Std Deviation 41.1 (36.4-46.3) fL RDW Coeff of Radha 18.7 H (11.5-14.5) % Plt Count 400 (130-400) K/uL MPV 10.2 (9.4-12.4) fL Immature Gran % (Auto) 0.4 % Neut % (Auto) 72.4 % Lymph % (Auto) 22.0 % [place] % (Auto) 4.8 % Eos % (Auto) 0.1 % Baso % (Auto) 0.3 % Reticulocyte % (Auto) 1.7 (0.5-2.0) % Neut # (Auto) 12.57 H (1.40-6.50) K/uL Lymph # (Auto) 3.81 H (1.2-3.4) K/uL [place] # (Auto) 0.84 H (0.11-0.59) K/uL Eos # (Auto) 0.01 (0-0.50) K/uL Baso # (Auto) 0.05 (0-0.2) K/uL Reticulocyte # 0.08 (0.02-0.10) 10^6/uL Immature Gran # (Auto) 0.07 (0.01-0.20) K/uL Absolute Nucleated RBC 0.02 (0-0.12) K/uL Nucleated RBC % (auto) 0.1 % Polychromasia 1+ Hypochromasia Present Microcytosis Present Haptoglobin PT (9.0-12.0) Seconds INR (0.9-1.1) APTT (21.0-31.0) Seconds PTT Ratio D-Dimer (0-500) ug/L FEU VBG pH (7.36-7.41) VBG pCO2 (38-50) mmHg VBG pO2 mmHg VBG HCO3 mmol/L VBG O2 Saturation % VBG Base Excess mEq/L Methemoglobin (0.0-1.5) % Sodium (136-145) mmol/L Potassium (3.5-5.1) mmol/L Chloride (98-107) mmol/L Carbon Dioxide (21-32) mmol/L Anion Gap (3-11) BUN (6-23) mg/dl Creatinine (0.6-1.2) mg/dl Est Cr Clr Drug Dosing ml/min Est GFR ( Amer) ml/min Est GFR (Non-Af Amer) ml/min BUN/Creatinine Ratio (10-20) Glucose (70-99(Fasting)) mg/dl Estimat Average Glucose mg/dl Hemoglobin A1c (4.5-5.6) % Calcium (8.6-10.3) mg/dl Magnesium (1.7-2.4) mg/dl Unsaturated IBC 492 H (155-355) mcg/dl Ferritin 4.0 L (8-388) ng/ml Total Bilirubin (0.2-1.0) mg/dl AST (13-39) U/L ALT (7-52) U/L Alkaline Phosphatase (34-104) U/L Lactate Dehydrogenase Troponin I High Sens 279.2 H* (0-14) pg/ml B-Natriuretic Peptide (0-100) pg/ml Total Protein (6.0-8.3) gm/dl Albumin (3.4-5.0) gm/dl Globulin (2.5-4.0) gm/dl Albumin/Globulin Ratio (0.9-2) Vitamin B12 (180-914) pg/ml Folate (>5.38) ng/ml HCG, Qual (Negative) Urine Color Urine Appearance (Clear) Urine pH (4.5-7.5) Ur Specific [place] (1.000-1.030) Urine Protein (Negative) Urine Glucose (UA) (Negative) Urine Ketones (Negative) Urine Blood (Negative) Urine Nitrite (Negative) Urine Bilirubin (Negative) Urine Urobilinogen (Negative) Ur Leukocyte Esterase (Negative) Urine WBC (Auto) (0-5) /hpf Urine RBC (Auto) (0-4) /hpf U Hyaline Cast (Auto) (0-5) /lpf U Epithel Cells (Auto) (0-5) /lpf Urine Bacteria (Auto) (Negative) SARS-CoV-2 (PCR) (Negative) Influenza Type A (PCR) (Neg) Influenza Type B (PCR) (Neg) RSV (RT-PCR) (Neg) Blood Type Blood Type Recheck Antibody Screen Direct Antiglob Test (Negative) FRANCO (IgG-AHG) (Negative) FRANCO, Polyspecific (Negative) FRANCO C3b, C3d 5 Min (Negative) Crossmatch 03/24/23 03/24/23 03/24/23 Range/Units 10:11 10:11 10:11 WBC (4.8-10.8) K/ul RBC (4.20-5.40) M/uL Hgb (12.0-16.0) g/dl Hct (37.0-47.0) % MCV (80.0-100.0) fL MCH (25.0-34.0) pg MCHC (32.0-36.0) g/dL RDW Std Deviation (36.4-46.3) fL RDW Coeff of Radha (11.5-14.5) % Plt Count (130-400) K/uL MPV (9.4-12.4) fL Immature Gran % (Auto) % Neut % (Auto) % Lymph % (Auto) % [place] % (Auto) % Eos % (Auto) % Baso % (Auto) % Reticulocyte % (Auto) (0.5-2.0) % Neut # (Auto) (1.40-6.50) K/uL Lymph # (Auto) (1.2-3.4) K/uL [place] # (Auto) (0.11-0.59) K/uL Eos # (Auto) (0-0.50) K/uL Baso # (Auto) (0-0.2) K/uL Reticulocyte # (0.02-0.10) 10^6/uL Immature Gran # (Auto) (0.01-0.20) K/uL Absolute Nucleated RBC (0-0.12) K/uL Nucleated RBC % (auto) % Polychromasia Hypochromasia Microcytosis Haptoglobin PT (9.0-12.0) Seconds INR (0.9-1.1) APTT (21.0-31.0) Seconds PTT Ratio D-Dimer (0-500) ug/L FEU VBG pH 7.44 H (7.36-7.41) VBG pCO2 34 L (38-50) mmHg VBG pO2 24 mmHg VBG HCO3 23 mmol/L VBG O2 Saturation < 60.0 % VBG Base Excess -0.5 mEq/L Methemoglobin 1.1 (0.0-1.5) % Sodium (136-145) mmol/L Potassium (3.5-5.1) mmol/L Chloride (98-107) mmol/L Carbon Dioxide (21-32) mmol/L Anion Gap (3-11) BUN (6-23) mg/dl Creatinine (0.6-1.2) mg/dl Est Cr Clr Drug Dosing ml/min Est GFR ( Amer) ml/min Est GFR (Non-Af Amer) ml/min BUN/Creatinine Ratio (10-20) Glucose (70-99(Fasting)) mg/dl Estimat Average Glucose mg/dl Hemoglobin A1c (4.5-5.6) % Calcium (8.6-10.3) mg/dl Magnesium (1.7-2.4) mg/dl Unsaturated IBC (155-355) mcg/dl Ferritin (8-388) ng/ml Total Bilirubin (0.2-1.0) mg/dl AST (13-39) U/L ALT (7-52) U/L Alkaline Phosphatase (34-104) U/L Lactate Dehydrogenase Troponin I High Sens (0-14) pg/ml B-Natriuretic Peptide (0-100) pg/ml Total Protein (6.0-8.3) gm/dl Albumin (3.4-5.0) gm/dl Globulin (2.5-4.0) gm/dl Albumin/Globulin Ratio (0.9-2) Vitamin B12 (180-914) pg/ml Folate (>5.38) ng/ml HCG, Qual (Negative) Urine Color Urine Appearance (Clear) Urine pH (4.5-7.5) Ur Specific [place] (1.000-1.030) Urine Protein (Negative) Urine Glucose (UA) (Negative) Urine Ketones (Negative) Urine Blood (Negative) Urine Nitrite (Negative) Urine Bilirubin (Negative) Urine Urobilinogen (Negative) Ur Leukocyte Esterase (Negative) Urine WBC (Auto) (0-5) /hpf Urine RBC (Auto) (0-4) /hpf U Hyaline Cast (Auto) (0-5) /lpf U Epithel Cells (Auto) (0-5) /lpf Urine Bacteria (Auto) (Negative) SARS-CoV-2 (PCR) (Negative) Influenza Type A (PCR) (Neg) Influenza Type B (PCR) (Neg) RSV (RT-PCR) (Neg) Blood Type A Positive Blood Type Recheck Antibody Screen NEGATIVE Direct Antiglob Test Negative (Negative) FRANCO (IgG-AHG) Neg (Negative) FRANCO, Polyspecific Neg (Negative) FRANCO C3b, C3d 5 Min Neg (Negative) Crossmatch See Detail 03/24/23 03/24/23 03/24/23 Range/Units 10:02 10:02 10:02 WBC (4.8-10.8) K/ul RBC (4.20-5.40) M/uL Hgb (12.0-16.0) g/dl Hct (37.0-47.0) % MCV (80.0-100.0) fL MCH (25.0-34.0) pg MCHC (32.0-36.0) g/dL RDW Std Deviation (36.4-46.3) fL RDW Coeff of Radha (11.5-14.5) % Plt Count (130-400) K/uL MPV (9.4-12.4) fL Immature Gran % (Auto) % Neut % (Auto) % Lymph % (Auto) % [place] % (Auto) % Eos % (Auto) % Baso % (Auto) % Reticulocyte % (Auto) (0.5-2.0) % Neut # (Auto) (1.40-6.50) K/uL Lymph # (Auto) (1.2-3.4) K/uL [place] # (Auto) (0.11-0.59) K/uL Eos # (Auto) (0-0.50) K/uL Baso # (Auto) (0-0.2) K/uL Reticulocyte # (0.02-0.10) 10^6/uL Immature Gran # (Auto) (0.01-0.20) K/uL Absolute Nucleated RBC (0-0.12) K/uL Nucleated RBC % (auto) % Polychromasia Hypochromasia Microcytosis Haptoglobin PT (9.0-12.0) Seconds INR (0.9-1.1) APTT (21.0-31.0) Seconds PTT Ratio D-Dimer (0-500) ug/L FEU VBG pH (7.36-7.41) VBG pCO2 (38-50) mmHg VBG pO2 mmHg VBG HCO3 mmol/L VBG O2 Saturation % VBG Base Excess mEq/L Methemoglobin (0.0-1.5) % Sodium 137 (136-145) mmol/L Potassium 3.7 (3.5-5.1) mmol/L Chloride 104 (98-107) mmol/L Carbon Dioxide 23 (21-32) mmol/L Anion Gap 10 (3-11) BUN 18 (6-23) mg/dl Creatinine 0.87 (0.6-1.2) mg/dl Est Cr Clr Drug Dosing 105.1 ml/min Est GFR ( Amer) 102.2 ml/min Est GFR (Non-Af Amer) 88.1 ml/min BUN/Creatinine Ratio 20.7 H (10-20) Glucose 135 H (70-99(Fasting)) mg/dl Estimat Average Glucose mg/dl Hemoglobin A1c (4.5-5.6) % Calcium 9.6 (8.6-10.3) mg/dl Magnesium (1.7-2.4) mg/dl Unsaturated IBC (155-355) mcg/dl Ferritin (8-388) ng/ml Total Bilirubin 0.6 (0.2-1.0) mg/dl AST 16 (13-39) U/L ALT 21 (7-52) U/L Alkaline Phosphatase 60 (34-104) U/L Lactate Dehydrogenase Troponin I High Sens (0-14) pg/ml B-Natriuretic Peptide (0-100) pg/ml Total Protein 8.4 H (6.0-8.3) gm/dl Albumin 4.0 (3.4-5.0) gm/dl Globulin 4.4 H (2.5-4.0) gm/dl Albumin/Globulin Ratio 0.9 (0.9-2) Vitamin B12 (180-914) pg/ml Folate (>5.38) ng/ml HCG, Qual Negative (Negative) Urine Color Urine Appearance (Clear) Urine pH (4.5-7.5) Ur Specific [place] (1.000-1.030) Urine Protein (Negative) Urine Glucose (UA) (Negative) Urine Ketones (Negative) Urine Blood (Negative) Urine Nitrite (Negative) Urine Bilirubin (Negative) Urine Urobilinogen (Negative) Ur Leukocyte Esterase (Negative) Urine WBC (Auto) (0-5) /hpf Urine RBC (Auto) (0-4) /hpf U Hyaline Cast (Auto) (0-5) /lpf U Epithel Cells (Auto) (0-5) /lpf Urine Bacteria (Auto) (Negative) SARS-CoV-2 (PCR) NEGATIVE (Negative) Influenza Type A (PCR) Negative (Neg) Influenza Type B (PCR) Negative (Neg) RSV (RT-PCR) Negative (Neg) Blood Type Blood Type Recheck Antibody Screen Direct Antiglob Test (Negative) FRANCO (IgG-AHG) (Negative) FRANCO, Polyspecific (Negative) FRANCO C3b, C3d 5 Min (Negative) Crossmatch 03/24/23 03/24/23 03/24/23 Range/Units 10:01 10:01 10:01 WBC 15.16 H (4.8-10.8) K/ul RBC 4.85 (4.20-5.40) M/uL Hgb 7.8 L (12.0-16.0) g/dl Hct 30.5 L (37.0-47.0) % MCV 62.9 L (80.0-100.0) fL MCH 16.1 L (25.0-34.0) pg MCHC 25.6 L (32.0-36.0) g/dL RDW Std Deviation 40.5 (36.4-46.3) fL RDW Coeff of Radha 18.9 H (11.5-14.5) % Plt Count 451 H (130-400) K/uL MPV 9.4 (9.4-12.4) fL Immature Gran % (Auto) 0.4 % Neut % (Auto) 79.1 % Lymph % (Auto) 15.0 % [place] % (Auto) 5.2 % Eos % (Auto) 0.1 % Baso % (Auto) 0.2 % Reticulocyte % (Auto) 1.9 (0.5-2.0) % Neut # (Auto) 12.00 H (1.40-6.50) K/uL Lymph # (Auto) 2.27 (1.2-3.4) K/uL [place] # (Auto) 0.79 H (0.11-0.59) K/uL Eos # (Auto) 0.01 (0-0.50) K/uL Baso # (Auto) 0.03 (0-0.2) K/uL Reticulocyte # 0.09 (0.02-0.10) 10^6/uL Immature Gran # (Auto) 0.06 (0.01-0.20) K/uL Absolute Nucleated RBC 0.02 (0-0.12) K/uL Nucleated RBC % (auto) 0.1 % Polychromasia 1+ Hypochromasia Present Microcytosis Present Haptoglobin PT 12.1 H (9.0-12.0) Seconds INR 1.1 (0.9-1.1) APTT 25.1 (21.0-31.0) Seconds PTT Ratio 0.9 D-Dimer 4390 H* (0-500) ug/L FEU VBG pH (7.36-7.41) VBG pCO2 (38-50) mmHg VBG pO2 mmHg VBG HCO3 mmol/L VBG O2 Saturation % VBG Base Excess mEq/L Methemoglobin (0.0-1.5) % Sodium (136-145) mmol/L Potassium (3.5-5.1) mmol/L Chloride (98-107) mmol/L Carbon Dioxide (21-32) mmol/L Anion Gap (3-11) BUN (6-23) mg/dl Creatinine (0.6-1.2) mg/dl Est Cr Clr Drug Dosing ml/min Est GFR ( Amer) ml/min Est GFR (Non-Af Amer) ml/min BUN/Creatinine Ratio (10-20) Glucose (70-99(Fasting)) mg/dl Estimat Average Glucose mg/dl Hemoglobin A1c (4.5-5.6) % Calcium (8.6-10.3) mg/dl Magnesium (1.7-2.4) mg/dl Unsaturated IBC (155-355) mcg/dl Ferritin (8-388) ng/ml Total Bilirubin (0.2-1.0) mg/dl AST (13-39) U/L ALT (7-52) U/L Alkaline Phosphatase (34-104) U/L Lactate Dehydrogenase Troponin I High Sens (0-14) pg/ml B-Natriuretic Peptide (0-100) pg/ml Total Protein (6.0-8.3) gm/dl Albumin (3.4-5.0) gm/dl Globulin (2.5-4.0) gm/dl Albumin/Globulin Ratio (0.9-2) Vitamin B12 (180-914) pg/ml Folate (>5.38) ng/ml HCG, Qual (Negative) Urine Color Urine Appearance (Clear) Urine pH (4.5-7.5) Ur Specific [place] (1.000-1.030) Urine Protein (Negative) Urine Glucose (UA) (Negative) Urine Ketones (Negative) Urine Blood (Negative) Urine Nitrite (Negative) Urine Bilirubin (Negative) Urine Urobilinogen (Negative) Ur Leukocyte Esterase (Negative) Urine WBC (Auto) (0-5) /hpf Urine RBC (Auto) (0-4) /hpf U Hyaline Cast (Auto) (0-5) /lpf U Epithel Cells (Auto) (0-5) /lpf Urine Bacteria (Auto) (Negative) SARS-CoV-2 (PCR) (Negative) Influenza Type A (PCR) (Neg) Influenza Type B (PCR) (Neg) RSV (RT-PCR) (Neg) Blood Type Blood Type Recheck Antibody Screen Direct Antiglob Test (Negative) FRANCO (IgG-AHG) (Negative) FRANCO, Polyspecific (Negative) FRANCO C3b, C3d 5 Min (Negative) Crossmatch Medications Administered Current Inpatient Medications Acetaminophen (Acetaminophen 325 Mg Tab) 650 mg PO Q4H PRN PRN Reason: Pain or Fever Stop: 04/23/23 13:34 Al Hydrox/Mg Hydrox/Simethicone (Aluminum/Magnesium Susp 30 Ml Udc) 15 ml PO Q4H PRN PRN Reason: Dyspepsia Stop: 04/23/23 13:34 Fluoxetine HCl (Fluoxetine Hcl 10 Mg Cap) 10 mg PO DAILY [facility] Stop: 04/24/23 08:59 Last Admin: 03/25/23 08:20 Dose: 10 mg Heparin Sodium/Dextrose (Heparin Sodium/Dextrose) 25,000 units in 500 mls @ 39 mls/hr IV .[id number]; Protocol Stop: 04/23/23 12:29 Last Titration: 03/25/23 19:41 Dose: 1,950 units/hr, 39 mls/hr Ceftriaxone Sodium 2,000 mg/ (Dextrose) 70 mls @ 140 mls/hr IV Q24H [facility] Stop: 04/03/23 22:59 Last Infusion: 03/24/23 23:43 Dose: Infused Magnesium Hydroxide (Magnesium Hydroxide Susp 30 Ml Udc) 30 ml PO Q12H PRN PRN Reason: Constipation Stop: 04/23/23 13:34 Polyethylene Glycol (Polyethylene (Miralax) 17 Gm Pack) 17 gm PO DAILY PRN PRN Reason: Constipation Stop: 04/23/23 13:34 (1) Pulmonary embolism Acute cor pulmonale presence: with acute cor pulmonale Chronicity: acute Pulmonary embolism type: unspecified Qualified Code(s): I26.09 - Other pulmonary embolism with acute cor pulmonale (3) Anemia Anemia type: unspecified type Qualified Code(s): D64.9 - Anemia, unspecified
[2023-03-25 11:13] LABS: Partial Thromboplastin Ratio 1.2; Partial Thromboplastin Time 33.1 Seconds (21.0-31.0)
[2023-03-25] MEDS ORDERED: HEPARIN SOD (PORCINE) 1000 UNIT/ML IV ONE ×2 (11:30→19:50)
--- NOTE | 2023-03-25 13:53 | Electrocardiogram Report ---
Test Reason : Blood Pressure : / mmHG Vent. Rate : 093 BPM Atrial Rate : 093 BPM P-R Int : 116 ms QRS Dur : 086 ms QT Int : 360 ms P-R-T Axes : 038 028 016 degrees QTc Int : 447 ms Normal sinus rhythm Normal ECG When compared with ECG of 24-MAR-2023 10:02, No significant change was found Confirmed by Joe Quinteros ([id number]) on 03/25/2023 1:53:14 PM Referred By: Jackie Rangel Confirmed By:Joe Quinteros
[2023-03-25 19:27] LABS: Partial Thromboplastin Ratio 1.1; Partial Thromboplastin Time 32.2 Seconds (21.0-31.0)
[2023-03-25 20:36] LABS: Hematocrit (blood only) 30.2 % (37.0-47.0); Hemoglobin 7.9 g/dl (12.0-16.0)
[2023-03-25] MEDS: cefTRIAXone SODIUM 2,000 MG in DEXTROSE 5% 50 ML IV SCH (23:10)
[2023-03-26 02:01] LABS: Hematocrit (blood only) 28.9 % (37.0-47.0); Hemoglobin 7.7 g/dl (12.0-16.0); Mean Corpuscular Hemoglobin 17.1 pg (25.0-34.0); Mean Corpuscular Hgb Conc 26.6 g/dL (32.0-36.0); Mean Corpuscular Volume 64.2 fL (80.0-100.0); Mean Platelet Volume 9.7 fL (9.4-12.4); Platelet Count 325 K/uL (130-400); RDW Coefficient of Variation 19.7 % (11.5-14.5); RDW Standard Deviation 43.3 fL (36.4-46.3); White Blood Count 9.21 K/ul (4.8-10.8)
[2023-03-26 02:18] LABS: Partial Thromboplastin Ratio 1.3
[2023-03-26 02:21] LABS: BUN Creatinine Ratio 16.5 (10-20); Calcium 8.7 mg/dl (8.6-10.3); Est GFR (African American) 114.8 ml/min; Est GFR (Non-African American) 99.1 ml/min; Magnesium 1.8 mg/dl (1.7-2.4); Phosphorus 4.4 mg/dl (2.5-4.9)
[2023-03-26] MEDS: HEPARIN SODIUM/DEXTROSE 25,000 UNITS/500 ML BAG IV SCH ×2 (05:27→19:15)
[2023-03-26] MEDS: FLUoxetine HCL 10 MG CAP PO SCH (07:45)
--- NOTE | 2023-03-26 08:05 | Pulmonology Progress Note ---
Date of Service March 26, 2023 Assessment & Plan (1) Pulmonary embolism: Acute cor pulmonale presence: with acute cor pulmonale Chronicity: acute Pulmonary embolism type: unspecified Qualified Code(s): I26.09 - Other pulmonary embolism with acute cor pulmonale (2) Anemia: Anemia type: unspecified type Qualified Code(s): D64.9 - Anemia, unspecified (3) Hypoxia: (4) Cor pulmonale, acute: Plan Impression: 32-year-old female with acute PE with acute right-sided heart failure and anemia. Her echocardiogram did show clot within the right ventricle either emanating from or trapped within the moderator band. She is hemodynamically stable. They are having difficulty getting her heparin therapeutic. Recommendations: 1. Acute PE with right-sided heart strain. The patient is hemodynamically stable currently. She has elevated biomarkers including a troponin and BNP which place her at an increased risk. Discussed with nursing. Given the dif ficulties with getting her therapeutic options would be either to rebolus her and ensure that she is therapeutic or consider transition to injectable low molecular weight heparin 1 mg/kg every 12. Will defer to pharmacy and the primary service but she needs to be therapeutically anticoagulated. Given the large clot burden, heparin may be absorbing to the clot and may result in higher heparin requirements. 2. Acute cor pulmonale: Well compensated currently. We will continue to follow on telemetry. The clot in the right ventricle is consistent with the physiologic process clots emanating from likely of the lower extremities passing through the heart and lodging in the lung. No additional intervention is required at this point in time. This can be reassessed on follow-up echo to exclude other potential etiologies including myxoma. 3. Anemia: Per primary. Await hematology and [facility]SULT[facility] consultation. 4. Hypoxemia: Secondary to #1 and #3. Continue oxygen to keep saturations at or above 90 %. No need to keep oxygen saturations at 100%. We will continue to follow with you. Feel free to contact us with questions or concerns. Discussed with patient and hospitalist at bedside Admission and Anticipated Discharge Date Admission Date: March 24, 2023 Subjective Patient seen and examined. EMR reviewed. The patient is awake alert conversant and in no distress. Her oxygen saturations are 100%. Her tachycardia is resolving. She remains hemodynamicall y stable. She has been up using the commode and walking in the room. No dizziness lightheadedness syncope or presyncope. She has not noted any lower extremity edema. She is anxious about starting her menstrual cycle with her history of heavy bleeding on anticoagulants. She has not yet been seen by hematology or [facility]SULT[facility] Review of Systems Review of Systems: All systems reviewed & are unremarkable except as noted in Subjective Physical Exam Constitutional: WD/WN, vitals as above Neck: trachea midline, no thyromegaly Respiratory: normal respiratory effort, lungs clear to auscultation Cardiovascular: Rate/Rhythm: not tachycardic Heart Sounds: normal S1 and normal S2; + abnormal physiologic split S2, no gallop and no murmur Extremities: no edema Gastrointestinal (Abdomen): normal bowel sounds, soft, nontender, no hepatosplenomegaly Musculoskeletal: Extremities: extremities normal to inspection Skin: no rashes, warm and dry Lymphatic: no cervical lymphadenopathy Results & Data Results & Data Vital Signs (Past 12 Hours) Vital Signs Temp Pulse Pulse Resp BP Pulse Ox O2 Del Method 03/26/23 07:37 36.5 C 85 18 138/92 100 Nasal Cannula 03/26/23 02:59 37 C 87 18 138/95 100 Nasal Cannula 03/26/23 00:43 101 H 03/25/23 23:03 37 C 100 H 18 141/96 H 97 Nasal Cannula 03/25/23 20:10 Nasal Cannula O2 Flow Rate 03/26/23 07:37 8 03/26/23 02:59 2 03/26/23 00:43 03/25/23 23:03 2 03/25/23 20:10 2 Laboratory Results 03/26/23 01:39 03/26/23 01:39 LDH 244 Haptoglobin pending Brett pending Diagnostic Findings Echocardiogram did show clot in the moderator band. PG Care Time/CCT Total # of Minutes Spent Total Time Spent with Patient: Total time spent is greater than 50% in coordination of care (as documented) at patient's floor/unit and/or counseling patient: Coding Level of Care Code 11196 SUB INP/OBS CARE 2/35MIN Diagnoses Pulmonary embolism I26.09 Acute cor pulmonale presence: with acute cor pulmonale Chronicity: acute Pulmonary embolism type: unspecified Anemia D64.9 Anemia type: unspecified type Hypoxia R09.02 Cor pulmonale, acute I26.09
[2023-03-26 08:42] LABS: Partial Thromboplastin Ratio 1.3; Partial Thromboplastin Time 36.6 Seconds (21.0-31.0)
--- NOTE | 2023-03-26 09:04 | Oncology Consultation ---
Date of Consultation March 26, 2023 Assessment & Plan (1) Pulmonary embolism: (2) Cor pulmonale, acute: (3) Anemia: (4) B12 deficiency: (5) Menorrhagia: (6) Ovarian mass: Plan 32-year-old female who was recently diagnosed with massive bilateral PE with right heart strain and RV thrombus. Based on her history, suspect that VTE was provoked by oral contraceptive. Studies have shown the risk of thrombosis is usually highest within the first 6-12 months of initiating therapy. She also has very severe microcytic anemia which is most likely multifactorial due to iron deficiency from menorrhagia as well as vitamin B12 deficiency which accounts for decreased reticulocyte count. -Since she has been on unfractionated heparin for several days and remains subtherapeutic, recommend switching from unfractionated therapeutic heparin to low molecular weight heparin (Lovenox) 1 mg/kg twice daily. -Recommend at least 6 months of therapeutic anticoagulation. Discussed options for long-term anticoagulation with patient including Lovenox, warfarin, Eliquis or Xarelto. Given significant clot burden would not recommend Eliquis or Xarelto at this time but may consider in the future when clot has resolved. Warfarin or Lovenox may be also particularly advantageous in the setting of menorrhagia as their effects can also be reversed. Patient indicated that she would prefer warfarin. Can initiate warfarin 5 mg p.o. daily tonight and adjust dosing based on INR. Will recommend she continue with Lovenox until INR has been therapeutic for at least 2 consecutive days -She will be at a higher risk of menorrhagia with blood thinners. As such, completely agree with [facility] MARKER evaluation to discuss options for treatment of menorrhagia. Would recommend completely avoiding estrogen containing/based contraception. She will also need transvaginal ultrasound to evaluate ovarian mass/cyst -. Recommend IV Venofer 200 mg IV daily x 3 doses. Also recommend parenteral B12 1000 mcg IM/SC x3 days in the first week followed by weekly x4 and then monthly -I will plan to see her in hematology clinic about 4 to 6 weeks after discharge from hospital at which time hypercoagulable/thrombophilia testing will be obtained. Above plan was discussed with patient and her mother. Thank you for this consult. Hematology will follow peripherally while she is in the hospital and schedule her for outpatient follow-up. Please feel free to call if you have any further questions History of Present Illness Reason for Consultation: anemia, PE Attending Physician: Boris Vasquez MD History of Present Illness Very pleasant 32-year-old female who presented to [facility] on 03/24/2023 with shortness of breath. While in the ED, D-dimer was noted to be elevated at 4390. She was also noted to be anemic with hemoglobin on presentation at 7.8. CTA chest revealed extensive bilateral pulmonary emboli with findings suggestive of right heart strain, possible thrombus/emboli within right ventricle. 2D echocardiogram on 01/25/2023 confirmed RV thrombus. She was started on therapeutic unfractionated heparin. Venous Doppler on 03/24/2023 revealed no sonographic evidence of DVT bilaterally. CT abdomen and pelvis without contrast on 03/17/2023 revealed right ovarian mass measuring 2.3 cm and left ovarian mass measuring 2.4 cm likely related to cysts with no other acute findings. She states that she was started on combined oral contraceptive around October, due to heavy menstrual periods. Denies history of recent trauma, hospitalization, surgery, long distance travel. Also denies known personal or family history of VTE. Denies family history of malignancy Allergies Allergy/AdvReac Type Severity Reaction Status Date / Time No Known Allergies Allergy Verified 03/24/23 13:05 Home Medications Medication Instructions Recorded Confirmed Type fluoxetine 10 mg capsule 10 mg PO DAILY 03/24/23 03/24/23 History levonorgestrel-ethinyl estradiol 1 tab PO DAILY 03/24/23 03/24/23 History 0.1 mg-20 mcg tablet Patient History Medical History (Updated 03/26/23 @ 11:52 by Ambar Morocho MD) Depression Surgical History (Updated 03/24/23 @ 14:36 by DWAYNE Campbell) No pertinent past surgical history Family History (Updated 03/24/23 @ 14:36 by DWAYNE Campbell) Other Diabetes Social History Smoking Status: Never smoker Hx Alcohol Use: No Hx Substance Use: No Preferred Language: Lao Communication Ability: Effective Manager Night Required: No Beliefs That Will Affect Care: None Current Living Situation: Alone Feels Safe at Home: Yes Safety Concerns: Feels Safe At This Time Assistive Devices: None Review of Systems Review of Systems: All systems reviewed & are unremarkable except as noted in Subjective Physical Exam Constitutional: WD/WN, vitals as above Eyes: PERRL, conjunctivae normal, anicteric sclerae Respiratory: normal respiratory effort, lungs clear to auscultation Cardiovascular: Rate/Rhythm: regular rhythm and + tachycardic Gastrointestinal (Abdomen): normal bowel sounds, soft, nontender, no hepatosplenomegaly Results & Data Vital Signs (Past 12 Hours) Vital Signs Temp Pulse Pulse Resp BP Pulse Ox O2 Del Method 03/26/23 07:37 36.5 C 85 18 138/92 100 Nasal Cannula 03/26/23 02:59 37 C 87 18 138/95 100 Nasal Cannula 03/26/23 00:43 101 H 03/25/23 23:03 37 C 100 H 18 141/96 H 97 Nasal Cannula O2 Flow Rate 03/26/23 07:37 8 03/26/23 02:59 2 03/26/23 00:43 03/25/23 23:03 2 (1) Pulmonary embolism Acute cor pulmonale presence: with acute cor pulmonale Chronicity: acute Pulmonary embolism type: unspecified Qualified Code(s): I26.09 - Other pulmonary embolism with acute cor pulmonale (3) Anemia Anemia type: unspecified type Qualified Code(s): D64.9 - Anemia, unspecified
[2023-03-26] MEDS ORDERED: HEPARIN- STOP ORDER SCH (10:00)
[2023-03-26] MEDS: ENOXAPARIN 100 MG/1ML SYR SQ SCH ×2 (10:12→22:01)
--- NOTE | 2023-03-26 12:07 | Hospitalist Progress Note ---
Date of Service March 26, 2023 Assessment & Plan (1) Pulmonary embolism: (2) Hypoxia: (3) Anemia: (4) Depression: Plan 32 year old F with acute SOB that started on Tuesday. Chest CTA bilateral PE. Heparin gtt ordered. Anemic 7.8; anemia panel pending. May have underlying coagulopathy issues to investigate once off Heparin infusion. 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 Pulmonary Embolism: SOB since Tuesday Hypoxic 86% ; on 2LNC on admission D-Dimer 4390 Chest CTA: large clot burden. Emboli within the right pulmonary artery as well as emboli extending into the lobes of both lungs. Many lobar pulmonary emboli are occlusive. No pulmonary infarct is present. There is straightening of the interventricular septum. There is possible thrombus within the right ventricle which measures up to 2.6 cm. Heparin gtt with bolus started ECHO obtained - + cardiac thrombus Pulmonary consultation; appreciate recommendations as outlined here: Per Pulmonary; recommend heparin for 3-4 days prior to transition to oral anticoagulant. Given the extensive nature of her clot and idiopathic nature of her clot, could make a strong case for lifelong anticoagulation. If not, would complete 6 months of anticoagulation and then follow-up with hematology for consideration of thrombophilia evaluation. 03/26 -discussed with hematology, will switch to Lovenox, therapeutic dose, and will start warfarin tonight. Anemia: Hgb 7.8; will trend and transfuse if reaches 7.0; next CBC at 2100 Anemia panel and FOBT heavy menstrual cycles since October 2022 Started OCP at that time Pale conjunctiva and lips transfused 1unit of pRBC Hematology , Water Chemist consulted 03/26 -discussed with hematology, will switch to Lovenox, start warfarin. In addition we will give IV iron and vitamin B12 for next 3 days Continue to monitor Depression: takes Prozac; continue Disposition: PCP: Dr. Barnes Code Status: Full Code VTE Prophylaxis: On Heparin gtt -> switched to lovenox therap. dose Admission and Anticipated Discharge Date Admission Date: March 24, 2023 Subjective Pt seen in follow up of PE, cor pulmonale, anemia Currently sitting up in bed in NAD, on suppl. O2, breathing comfortably at this time No chest pain, shortness of breath on exertion much improved now. No fevers Discussed with pulmonary medicine at the bedside, and hematology over the phone. Switched from IV heparin to Lovenox. We will start warfarin tonight. In addition we will provide IV iron, and vitamin B12 Review of Systems Review of Systems: All systems reviewed & are unremarkable except as noted in Subjective Physical Exam Physical Exam: General: obese young F on suppl. O2, in NAD HEENT: NC/AT. head normocephalic, moist mucus membranes. pale conjunctiva and lips CV: S1/S2, (-) M/G/R, (-) edema Resp: Lungs decreased in all lobes. on suppl. O2 GI: Abdomen S/NT/ND, obese, +bowel sounds Musculoskeletal: moves extremities Neuro: AAOx3, PERRL, speech fluent, moves extremities Skin: (-) rashes , (-) erythema. pale Psych: euthymic Results & Data Results & Data Vital Signs (Past 12 Hours) Vital Signs Temp Pulse Pulse Resp BP Pulse Ox O2 Del Method 03/26/23 11:23 36.3 C L 98 H 18 138/98 95 Nasal Cannula 03/26/23 07:30 Nasal Cannula 03/26/23 07:37 36.5 C 85 18 138/92 100 Nasal Cannula 03/26/23 02:59 37 C 87 18 138/95 100 Nasal Cannula 03/26/23 00:43 101 H O2 Flow Rate 03/26/23 11:23 4 03/26/23 07:30 2 03/26/23 07:37 8 03/26/23 02:59 2 03/26/23 00:43 Laboratory Results 03/26/23 03/26/23 03/26/23 Range/Units 07:49 01:39 01:39 WBC 9.21 (4.8-10.8) K/ul RBC 4.50 (4.20-5.40) M/uL Hgb 7.7 L (12.0-16.0) g/dl Hct 28.9 L (37.0-47.0) % MCV 64.2 L (80.0-100.0) fL MCH 17.1 L (25.0-34.0) pg MCHC 26.6 L (32.0-36.0) g/dL RDW Std Deviation 43.3 (36.4-46.3) fL RDW Coeff of Radha 19.7 H (11.5-14.5) % Plt Count 325 (130-400) K/uL MPV 9.7 (9.4-12.4) fL APTT 36.6 H (21.0-31.0) Seconds PTT Ratio 1.3 Sodium 138 (136-145) mmol/L Potassium 4.0 (3.5-5.1) mmol/L Chloride 106 (98-107) mmol/L Carbon Dioxide 23 (21-32) mmol/L Anion Gap 9 (3-11) BUN 13 (6-23) mg/dl Creatinine 0.79 (0.6-1.2) mg/dl Est Cr Clr Drug Dosing 116.0 ml/min Est GFR ( Amer) 114.8 ml/min Est GFR (Non-Af Amer) 99.1 ml/min BUN/Creatinine Ratio 16.5 (10-20) Glucose 110 H (70-99(Fasting)) mg/dl Calcium 8.7 (8.6-10.3) mg/dl Phosphorus 4.4 (2.5-4.9) mg/dl Magnesium 1.8 (1.7-2.4) mg/dl 03/26/23 03/25/23 03/25/23 Range/Units 01:39 19:57 18:14 WBC (4.8-10.8) K/ul RBC (4.20-5.40) M/uL Hgb 7.9 L (12.0-16.0) g/dl Hct 30.2 L (37.0-47.0) % MCV (80.0-100.0) fL MCH (25.0-34.0) pg MCHC (32.0-36.0) g/dL RDW Std Deviation (36.4-46.3) fL RDW Coeff of Radha (11.5-14.5) % Plt Count (130-400) K/uL MPV (9.4-12.4) fL APTT 37.0 H 32.2 H (21.0-31.0) Seconds PTT Ratio 1.3 1.1 Sodium (136-145) mmol/L Potassium (3.5-5.1) mmol/L Chloride (98-107) mmol/L Carbon Dioxide (21-32) mmol/L Anion Gap (3-11) BUN (6-23) mg/dl Creatinine (0.6-1.2) mg/dl Est Cr Clr Drug Dosing ml/min Est GFR ( Amer) ml/min Est GFR (Non-Af Amer) ml/min BUN/Creatinine Ratio (10-20) Glucose (70-99(Fasting)) mg/dl Calcium (8.6-10.3) mg/dl Phosphorus (2.5-4.9) mg/dl Magnesium (1.7-2.4) mg/dl Medications Administered Current Inpatient Medications Acetaminophen (Acetaminophen 325 Mg Tab) 650 mg PO Q4H PRN PRN Reason: Pain or Fever Stop: 04/23/23 13:34 Al Hydrox/Mg Hydrox/Simethicone (Aluminum/Magnesium Susp 30 Ml Udc) 15 ml PO Q4H PRN PRN Reason: Dyspepsia Stop: 04/23/23 13:34 Cyanocobalamin (Cyanocobalamin 1000 Mcg/Ml Vial) 1,000 mcg SC DAILY@1200 PEBBLES Stop: 03/28/23 12:01 Enoxaparin Sodium (Enoxaparin 100 Mg/1ml Syr) 100 mg SQ Q12H PEBBLES Stop: 04/25/23 09:59 Last Admin: 03/26/23 10:12 Dose: 100 mg Fluoxetine HCl (Fluoxetine Hcl 10 Mg Cap) 10 mg PO DAILY PEBBLES Stop: 04/24/23 08:59 Last Admin: 03/26/23 07:45 Dose: 10 mg Ceftriaxone Sodium 2,000 mg/ (Dextrose) 70 mls @ 140 mls/hr IV Q24H PEBBLES Stop: 04/03/23 22:59 Last Infusion: 03/25/23 23:45 Dose: Infused Iron Sucrose 200 mg/ Sodium (Chloride) 110 mls @ 220 mls/hr IV Q24H PEBBLES Stop: 03/28/23 12:29 Magnesium Hydroxide (Magnesium Hydroxide Susp 30 Ml Udc) 30 ml PO Q12H PRN PRN Reason: Constipation Stop: 04/23/23 13:34 Polyethylene Glycol (Polyethylene (Miralax) 17 Gm Pack) 17 gm PO DAILY PRN PRN Reason: Constipation Stop: 04/23/23 13:34 Warfarin Sodium (Warfarin Sod 5 Mg Tab) 5 mg PO DAILY@1600 [facility] Stop: 04/25/23 15:59 (1) Pulmonary embolism Acute cor pulmonale presence: with acute cor pulmonale Chronicity: acute Pulmonary embolism type: unspecified Qualified Code(s): I26.09 - Other pulmonary embolism with acute cor pulmonale (3) Anemia Anemia type: unspecified type Qualified Code(s): D64.9 - Anemia, unspecified
[2023-03-26] MEDS: IRON SUCROSE 200 MG in 0.9 % SODIUM CHLORIDE 100 ML IV SCH (12:17)
[2023-03-26] MEDS: CYANOCOBALAMIN 1000 MCG/ML VIAL SC SCH (12:17)
[2023-03-26] MEDS: WARFARIN SOD 5 MG TAB PO SCH (15:27)
[2023-03-26] MEDS: cefTRIAXone SODIUM 2,000 MG in DEXTROSE 5% 50 ML IV SCH (22:00)
[2023-03-27 07:39] LABS: Hematocrit (blood only) 30.9 % (37.0-47.0); Hemoglobin 8.1 g/dl (12.0-16.0); Mean Corpuscular Hgb Conc 26.2 g/dL (32.0-36.0); Mean Corpuscular Volume 64.8 fL (80.0-100.0); Mean Platelet Volume 10.2 fL (9.4-12.4); Platelet Count 333 K/uL (130-400); RDW Coefficient of Variation 19.9 % (11.5-14.5); RDW Standard Deviation 43.8 fL (36.4-46.3); Red Blood Count 4.77 M/uL (4.20-5.40); White Blood Count 7.31 K/ul (4.8-10.8)
[2023-03-27 08:03] LABS: BUN Creatinine Ratio 12.5 (10-20); Calcium 8.8 mg/dl (8.6-10.3); Creatinine Clr Calc Pharmacy 126.6 ml/min; Est GFR (African American) 128.4 ml/min; Est GFR (Non-African American) 110.8 ml/min; Magnesium 1.9 mg/dl (1.7-2.4); Phosphorus 4.9 mg/dl (2.5-4.9)
[2023-03-27 08:08] LABS: INR 1.2 (0.9-1.1); Prothrombin Time 12.8 Seconds (9.0-12.0)
--- NOTE | 2023-03-27 08:08 | Pulmonology Progress Note ---
Date of Service March 27, 2023 Assessment & Plan (1) Pulmonary embolism: Acute cor pulmonale presence: with acute cor pulmonale Chronicity: acute Pulmonary embolism type: unspecified Qualified Code(s): I26.09 - Other pulmonary embolism with acute cor pulmonale (2) Anemia: Anemia type: unspecified type Qualified Code(s): D64.9 - Anemia, unspecified (3) Hypoxia: (4) Cor pulmonale, acute: Plan Impression: 32-year-old female with acute PE with acute right-sided heart failure and anemia. Her echocardiogram did show clot/density within the right ventricle either emanating from or trapped within the moderator band. She is hemodynamically stable. They are having difficulty getting her heparin therapeutic. She is slightly more tachycardic today. Recommendations: 1. Acute PE with right-sided heart strain. The patient is hemodynamically stab le currently. She has elevated biomarkers including a troponin and BNP which place her at an increased risk. Transition from heparin to Lovenox with plans to start Coumadin. The patient was advised that if Lovenox can be administered at home and she can be arranged for appropriate follow-up, could consider potential discharge when she is ready. Appreciate hematology evaluation. 2. Acute cor pulmonale: Well compensated currently. We will continue to follow on telemetry. The clot in the right ventricle is consistent with the physiologic process clots emanating from likely of the lower extremities passing through the heart and lodging in the lung. No additional intervention is required at this point in time. This can be reassessed on follow-up echo to exclude other potential etiologies including myxoma. 3. Anemia: Hematology notes reviewed. Await HOSPITAL PERSONNEL DIRECTOR consultation 4. Hypoxemia: Secondary to #1 and #3. Continue oxygen to keep saturations at or above 90 %. No need to keep oxygen saturations at 100%. We will continue to observe in the hospital until her tachycardia is resolved. We will continue to follow with you. Feel free to contact us with questions or concerns. Discussed with patient at bedside Admission and Anticipated Discharge Date Admission Date: March 24, 2023 Subjective Patient seen and examined. EMR reviewed. The patient reports that she is increasing her activity level. She was walking around the room. She did experience some slight increase shortness of breath but she is unclear what the source was. She did not have any palpitations dizziness lightheadedness. She was transitioned from heparin to Lovenox. She is now coughing and using cough drops. The cough is nonproductive. She is not having any fevers chills or night sweats Review of Systems Review of Systems: All systems reviewed & are unremarkable except as noted in Subjective Physical Exam Constitutional: WD/WN, vitals as above Neck: trachea midline, no thyromegaly Respiratory: normal respiratory effort, lungs clear to auscultation Cardiovascular: Rate/Rhythm: not tachycardic Heart Sounds: normal S1 and normal S2; + abnormal physiologic split S2, no gallop and no murmur Extremities: no edema Gastrointestinal (Abdomen): normal bowel sounds, soft, nontender, no hepatosplenomegaly Musculoskeletal: Extremities: extremities normal to inspection Skin: no rashes, warm and dry Lymphatic: no cervical lymphadenopathy Results & Data Results & Data Vital Signs (Past 12 Hours) Vital Signs Temp Pulse Pulse Resp BP Pulse Ox O2 Del Method 03/27/23 02:43 36.8 C 97 H 18 123/86 98 Nasal Cannula 03/26/23 23:05 107 H 03/26/23 22:42 36.7 C 102 H 18 129/87 97 Nasal Cannula O2 Flow Rate 03/27/23 02:43 3 03/26/23 23:05 03/26/23 22:42 3 Laboratory Results 03/27/23 06:35 03/27/23 06:35 Diagnostic Findings No new imaging PG Care Time/CCT Total # of Minutes Spent Total Time Spent with Patient: Total time spent is greater than 50% in coordination of care (as documented) at patient's floor/unit and/or counseling patient: Coding Level of Care Code 79118 SUB INP/OBS CARE 2/35MIN Diagnoses Pulmonary embolism I26.09 Acute cor pulmonale presence: with acute cor pulmonale Chronicity: acute Pulmonary embolism type: unspecified Anemia D64.9 Anemia type: unspecified type Hypoxia R09.02 Cor pulmonale, acute I26.09
[2023-03-27] MEDS: ENOXAPARIN 100 MG/1ML SYR SQ SCH ×2 (09:06→21:55)
[2023-03-27] MEDS: FLUoxetine HCL 10 MG CAP PO SCH (09:06)
[2023-03-27] MEDS: CYANOCOBALAMIN 1000 MCG/ML VIAL SC SCH (12:32)
[2023-03-27] MEDS: IRON SUCROSE 200 MG in 0.9 % SODIUM CHLORIDE 100 ML IV SCH (12:36)
--- NOTE | 2023-03-27 14:08 | Hospitalist Progress Note ---
Date of Service March 27, 2023 Assessment & Plan (1) Pulmonary embolism: (2) Hypoxia: (3) Anemia: (4) Depression: Plan 32 year old F with acute SOB that started on Tuesday. Chest CTA bilateral PE. Heparin gtt ordered. Anemic 7.8; anemia panel pending. May have underlying coagulopathy issues to investigate once off Heparin infusion. 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 Pulmonary Embolism: SOB since Tuesday Hypoxic 86% ; on 2LNC on admission D-Dimer 4390 Chest CTA: large clot burden. Emboli within the right pulmonary artery as well as emboli extending into the lobes of both lungs. Many lobar pulmonary emboli are occlusive. No pulmonary infarct is present. There is straightening of the interventricular septum. There is possible thrombus within the right ventricle which measures up to 2.6 cm. Heparin gtt with bolus started ECHO obtained - + cardiac thrombus Pulmonary consultation; appreciate recommendations as outlined here: Per Pulmonary; recommend heparin for 3-4 days prior to transition to oral anticoagulant. Given the extensive nature of her clot and idiopathic nature of her clot, could make a strong case for lifelong anticoagulation. If not, would complete 6 months of anticoagulation and then follow-up with hematology for consideration of thrombophilia evaluation. 03/26 -discussed with hematology, switched to Lovenox, therapeutic dose, and started warfarin tonight. Monitor INR Anemia: Hgb 7.8; will trend and transfuse if reaches 7.0; next CBC at 2100 Anemia panel and FOBT heavy menstrual cycles since October 2022 Started OCP at that time Pale conjunctiva and lips transfused 1unit of pRBC Hematology , Flatbed Driver consulted 03/26 -discussed with hematology, switched to Lovenox, started warfarin. In addition- giving IV iron and vitamin B12 for next 3 days 03/27 Discussed w/ gynecology - plan for depo/provera, transvag. US Continue to monitor Depression: takes Prozac; continue Disposition: PCP: Dr. Barnes Code Status: Full Code VTE Prophylaxis: lovenox therap. dose Admission and Anticipated Discharge Date Admission Date: March 24, 2023 Subjective Pt seen in follow up of PE, cor pulmonale, anemia Currently sitting up in bed in NAD, on suppl. O2, breathing comfortably at this time No chest pain, and shortness of breath on exertion much improved now. No fevers Seen by pulmonary medicine and hematology - was switched from IV heparin to Lovenox yesterday. Also started warfarin yesterday. In addition, providing IV iron, and vitamin B12 Review of Systems Review of Systems: All systems reviewed & are unremarkable except as noted in Subjective Physical Exam Physical Exam: General: obese young F on suppl. O2, in NAD HEENT: NC/AT. head normocephalic, moist mucus membranes. pale conjunctiva and lips CV: S1/S2, (-) M/G/R, (-) edema Resp: Lungs decreased in all lobes. on suppl. O2 GI: Abdomen S/NT/ND, obese, +bowel sounds Musculoskeletal: moves extremities Neuro: AAOx3, PERRL, speech fluent, moves extremities Skin: (-) rashes , (-) erythema. pale Psych: euthymic Results & Data Results & Data Vital Signs (Past 12 Hours) Vital Signs Temp Pulse Resp BP Pulse Ox O2 Del Method O2 Flow Rate 03/27/23 07:30 Nasal Cannula 2 03/27/23 11:34 36.8 C 88 20 134/92 98 Nasal Cannula 2 03/27/23 08:22 36.8 C 95 H 20 131/93 97 Nasal Cannula 2 03/27/23 02:43 36.8 C 97 H 18 123/86 98 Nasal Cannula 3 Laboratory Results 03/27/23 03/27/23 03/27/23 Range/Units 06:50 06:35 06:35 WBC (4.8-10.8) K/ul RBC (4.20-5.40) M/uL Hgb (12.0-16.0) g/dl Hct (37.0-47.0) % MCV (80.0-100.0) fL MCH (25.0-34.0) pg MCHC (32.0-36.0) g/dL RDW Std Deviation (36.4-46.3) fL RDW Coeff of Radha (11.5-14.5) % Plt Count (130-400) K/uL MPV (9.4-12.4) fL PT 12.8 H (9.0-12.0) Seconds INR 1.2 H (0.9-1.1) Sodium 139 (136-145) mmol/L Potassium 4.0 (3.5-5.1) mmol/L Chloride 106 (98-107) mmol/L Carbon Dioxide 24 (21-32) mmol/L Anion Gap 9 (3-11) BUN 9 (6-23) mg/dl Creatinine 0.72 (0.6-1.2) mg/dl Est Cr Clr Drug Dosing 126.6 ml/min Est GFR ( Amer) 128.4 ml/min Est GFR (Non-Af Amer) 110.8 ml/min BUN/Creatinine Ratio 12.5 (10-20) Glucose 84 (70-99(Fasting)) mg/dl Calcium 8.8 (8.6-10.3) mg/dl Phosphorus 4.9 (2.5-4.9) mg/dl Magnesium 1.9 (1.7-2.4) mg/dl Stool Occult Bld Scrn Cancelled 03/27/23 Range/Units 06:35 WBC 7.31 (4.8-10.8) K/ul RBC 4.77 (4.20-5.40) M/uL Hgb 8.1 L (12.0-16.0) g/dl Hct 30.9 L (37.0-47.0) % MCV 64.8 L (80.0-100.0) fL MCH 17.0 L (25.0-34.0) pg MCHC 26.2 L (32.0-36.0) g/dL RDW Std Deviation 43.8 (36.4-46.3) fL RDW Coeff of Radha 19.9 H (11.5-14.5) % Plt Count 333 (130-400) K/uL MPV 10.2 (9.4-12.4) fL PT (9.0-12.0) Seconds INR (0.9-1.1) Sodium (136-145) mmol/L Potassium (3.5-5.1) mmol/L Chloride (98-107) mmol/L Carbon Dioxide (21-32) mmol/L Anion Gap (3-11) BUN (6-23) mg/dl Creatinine (0.6-1.2) mg/dl Est Cr Clr Drug Dosing ml/min Est GFR ( Amer) ml/min Est GFR (Non-Af Amer) ml/min BUN/Creatinine Ratio (10-20) Glucose (70-99(Fasting)) mg/dl Calcium (8.6-10.3) mg/dl Phosphorus (2.5-4.9) mg/dl Magnesium (1.7-2.4) mg/dl Stool Occult Bld Scrn Medications Administered Current Inpatient Medications Acetaminophen (Acetaminophen 325 Mg Tab) 650 mg PO Q4H PRN PRN Reason: Pain or Fever Stop: 04/23/23 13:34 Last Admin: 03/27/23 09:07 Dose: 650 mg Al Hydrox/Mg Hydrox/Simethicone (Aluminum/Magnesium Susp 30 Ml Udc) 15 ml PO Q4H PRN PRN Reason: Dyspepsia Stop: 04/23/23 13:34 Cyanocobalamin (Cyanocobalamin 1000 Mcg/Ml Vial) 1,000 mcg SC DAILY@1200 [facility] Stop: 03/28/23 12:01 Last Admin: 03/27/23 12:32 Dose: 1,000 mcg Enoxaparin Sodium (Enoxaparin 100 Mg/1ml Syr) 100 mg SQ Q12H PEBBLES Stop: 04/25/23 09:59 Last Admin: 03/27/23 09:06 Dose: 100 mg Fluoxetine HCl (Fluoxetine Hcl 10 Mg Cap) 10 mg PO DAILY PEBBLES Stop: 04/24/23 08:59 Last Admin: 03/27/23 09:06 Dose: 10 mg Ceftriaxone Sodium 2,000 mg/ (Dextrose) 70 mls @ 140 mls/hr IV Q24H [facility]BBLES Stop: 04/03/23 22:59 Last Infusion: 03/26/23 22:29 Dose: Infused Iron Sucrose 200 mg/ Sodium (Chloride) 110 mls @ 220 mls/hr IV Q24H [facility]BBLES Stop: 03/28/23 12:29 Last Admin: 03/27/23 12:36 Dose: 220 mls/hr Magnesium Hydroxide (Magnesium Hydroxide Susp 30 Ml Udc) 30 ml PO Q12H PRN PRN Reason: Constipation Stop: 04/23/23 13:34 Polyethylene Glycol (Polyethylene (Miralax) 17 Gm Pack) 17 gm PO DAILY PRN PRN Reason: Constipation Stop: 04/23/23 13:34 Warfarin Sodium (Warfarin Sod 5 Mg Tab) 5 mg PO DAILY@1600 [facility]BBLES Stop: 04/25/23 15:59 Last Admin: 03/26/23 15:27 Dose: 5 mg (1) Pulmonary embolism Acute cor pulmonale presence: with acute cor pulmonale Chronicity: acute Pulmonary embolism type: unspecified Qualified Code(s): I26.09 - Other pulmonary embolism with acute cor pulmonale (3) Anemia Anemia type: unspecified type Qualified Code(s): D64.9 - Anemia, unspecified
[2023-03-27] MEDS: WARFARIN SOD 5 MG TAB PO SCH (15:24)
[2023-03-28 06:54] LABS: Hematocrit (blood only) 32.4 % (37.0-47.0); Hemoglobin 8.5 g/dl (12.0-16.0); Mean Corpuscular Hemoglobin 17.3 pg (25.0-34.0); Mean Corpuscular Hgb Conc 26.2 g/dL (32.0-36.0); Mean Corpuscular Volume 65.9 fL (80.0-100.0); Mean Platelet Volume 10.3 fL (9.4-12.4); Platelet Count 349 K/uL (130-400); RDW Coefficient of Variation 20.8 % (11.5-14.5); RDW Standard Deviation 43.9 fL (36.4-46.3); Red Blood Count 4.92 M/uL (4.20-5.40); White Blood Count 8.19 K/ul (4.8-10.8)
[2023-03-28 07:17] LABS: Calcium 8.7 mg/dl (8.6-10.3); Creatinine Clr Calc Pharmacy 121.6 ml/min; Est GFR (African American) 122.2 ml/min; Est GFR (Non-African American) 105.5 ml/min; Potassium 3.9 mmol/L (3.5-5.1)
[2023-03-28 07:59] LABS: INR 1.7 (0.9-1.1); Prothrombin Time 17.8 Seconds (9.0-12.0)
--- NOTE | 2023-03-28 08:17 | Consultation Report ---
FACILITY SPECIALIST CONSULTATION DATE OF CONSULTATION: 03/27/2023 This is a consult placed by Dr. Cloud. HISTORY OF PRESENT ILLNESS: The patient is a 32-year-old who came to the Emergency Room on 03/24/2023 with complaints of shortness of breath. The patient had been started on control pills 2 months ago for menorrhagia. She was seen in the Emergency Room and worked up for shortness of breath and workup included chest CT scan and the patient was diagnosed with bilateral PE, hypoxia, anemia, and had a history of depression. She was admitted and started on anticoagulation therapy. The patient was seen by hematology and hematology asked the patient to stop taking control pills. Hematology believes the course of the PE is from the control pills. The patient has since been admitted and is being treated for her PE. PAST MEDICAL HISTORY: The patient has a history of depression. No history of diabetes, hypertension, or asthma. PAST SURGICAL HISTORY: The patient denies any surgical history in the past. FAMILY HISTORY: Noncontributory. SOCIAL HISTORY: The patient denies tobacco, drug, or alcohol use. PHYSICAL EXAMINATION: VITAL SIGNS: Today, on 03/27/2023, blood pressure is 143/90, pulse is 102, respirations are 20, and temperature is 36.7. HEART: S1 and S2, regular rhythm and rate. LUNGS: Clear to auscultation bilaterally. ABDOMEN: Nontender and nondistended. EXTREMITIES: No cyanosis, clubbing, or edema. PELVIC: Deferred. ASSESSMENT AND PLAN: A 32-year-old admitted for bilateral pulmonary embolism. The patient is being seen by medicine and hematology and the cause of pulmonary embolism has been diagnosed as the control pill and it is therefore being stopped. The patient went on control pill because of menorrhagia. On admission, her hemoglobin was very low in the 7's and will be transfused I believe a couple of units. I spoke to one of the academic support coordinator plant operations engineer and did a discussion as what the patient can be switched on for her menorrhagia and I have recommended Depo-Provera IM shots if that is okay with hematology. As discussed with the hospitalist, progesterones do have a risk of venous thromboembolism, but not as high as the estrogen counterpart. If this is okay with hematology, the patient can be given Depo-Provera IM shots and the patient can follow up with FACILITY SPECIALIST as an outpatient. CT also showed ovarian cyst. pelvic sono is ordered to evaluate the cyst Thank you very much for your referral. Job ID: [id number] [facility]ITAL[facility]illermina
--- NOTE | 2023-03-28 08:33 | Hospitalist Progress Note ---
Date of Service March 28, 2023 Assessment & Plan (1) Pulmonary embolism: (2) Hypoxia: (3) Anemia: (4) Depression: Plan 32 year old F with acute SOB that started on Tuesday. Chest CTA bilateral PE. Heparin gtt ordered. Anemic 7.8; anemia panel pending. May have underlying coagulopathy issues to investigate once off Heparin infusion. 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 Pulmonary Embolism: Hypoxia 2/2 above SOB since Tuesday Hypoxic 86% ; on 2LNC on admission D-Dimer 4390 Chest CTA: large clot burden. Emboli within the right pulmonary artery as well as emboli extending into the lobes of both lungs. Many lobar pulmonary emboli are occlusive. No pulmonary infarct is present. There is straightening of the interventricular septum. There is possible thrombus within the right ventricle which measures up to 2.6 cm. Heparin gtt with bolus started on admission ECHO obtained - + cardiac thrombus Pulmonary consultation; appreciate recommendations as outlined here: Per Pulmonary; recommend heparin for 3-4 days prior to transition to oral anticoagulant. Given the extensive nature of her clot and idiopathic nature of her clot, could make a strong case for lifelong anticoagulation. If not, would complete 6 months of anticoagulation and then follow-up with hematology for consideration of thrombophilia evaluation. Hematology and gynecology consulted 03/26 -discussed with hematology, switched to Lovenox, therapeutic dose, and started warfarin Monitor INR 03/28 - current INR 1.7, cont. to use suppl. O2 Gynecology also ordered transvag. US and depo/provera 03/28 -discussed with the patient. She is okay to proceed with ultrasound, however she is unsure about her Depo shot. Will follow up on US. Anemia: Hgb 7.8 Anemia panel and FOBT heavy menstrual cycles since October 2022 Started OCP at that time Pale conjunctiva and lips transfused 1unit of pRBC Hematology , Director Of Patient Financial Services consulted 03/26 -discussed with hematology, switched to Lovenox, started warfarin. In addition- giving IV iron and vitamin B12 for next 3 days 03/27 Discussed w/ gynecology - plan for depo/provera, transvag. US 03/28 Current Hgb 8.5 Continue to monitor Depression: takes Prozac; continue Disposition: PCP: Dr. Barnes Code Status: Full Code VTE Prophylaxis: lovenox therap. dose Admission and Anticipated Discharge Date Admission Date: March 24, 2023 Subjective Pt seen in follow up of PE, cor pulmonale, anemia Currently sitting up in bed in NAD, on suppl. O2, breathing comfortably at this time Reported that she tried to be without oxygen per RN, and she was desaturating No chest pain, or shortness of breath on exertion much improved now. No fevers Seen by pulmonary medicine and hematology - now on Lovenox and warfarin In addition, providing IV iron, and vitamin B12 Seen by Director Of Patient Financial Services. transvag. US ordered. Review of Systems Review of Systems: All systems reviewed & are unremarkable except as noted in Subjective Physical Exam Physical Exam: General: obese young F on suppl. O2, in NAD HEENT: NC/AT. head normocephalic, moist mucus membranes. pale conjunctiva and lips CV: S1/S2, (-) M/G/R, (-) edema Resp: Lungs decreased in all lobes. on suppl. O2 GI: Abdomen S/NT/ND, obese, +bowel sounds Musculoskeletal: moves extremities Neuro: AAOx3, PERRL, speech fluent, moves extremities Skin: (-) rashes , (-) erythema. pale Psych: euthymic Results & Data Results & Data Vital Signs (Past 12 Hours) Vital Signs Temp Pulse Pulse Resp BP Pulse Ox O2 Del Method 03/28/23 07:48 Nasal Cannula 03/28/23 07:40 36.5 C 97 H 20 121/86 99 Nasal Cannula 03/28/23 03:50 36.7 C 87 17 129/85 98 Nasal Cannula 03/27/23 22:44 96 H 03/27/23 22:36 36.9 C 95 H 20 142/97 H 98 Nasal Cannula O2 Flow Rate 03/28/23 07:48 2 03/28/23 07:40 2 03/28/23 03:50 2 03/27/23 22:44 03/27/23 22:36 2 Laboratory Results 03/28/23 03/28/23 03/28/23 Range/Units 06:22 06:22 06:22 WBC 8.19 (4.8-10.8) K/ul RBC 4.92 (4.20-5.40) M/uL Hgb 8.5 L (12.0-16.0) g/dl Hct 32.4 L (37.0-47.0) % MCV 65.9 L (80.0-100.0) fL MCH 17.3 L (25.0-34.0) pg MCHC 26.2 L (32.0-36.0) g/dL RDW Std Deviation 43.9 (36.4-46.3) fL RDW Coeff of Radha 20.8 H (11.5-14.5) % Plt Count 349 (130-400) K/uL MPV 10.3 (9.4-12.4) fL PT 17.8 H (9.0-12.0) Seconds INR 1.7 H (0.9-1.1) Sodium 139 (136-145) mmol/L Potassium 3.9 (3.5-5.1) mmol/L Chloride 107 (98-107) mmol/L Carbon Dioxide 24 (21-32) mmol/L Anion Gap 8 (3-11) BUN 9 (6-23) mg/dl Creatinine 0.75 (0.6-1.2) mg/dl Est Cr Clr Drug Dosing 121.6 ml/min Est GFR ( Amer) 122.2 ml/min Est GFR (Non-Af Amer) 105.5 ml/min BUN/Creatinine Ratio 12.0 (10-20) Glucose 97 (70-99(Fasting)) mg/dl Calcium 8.7 (8.6-10.3) mg/dl Medications Administered Current Inpatient Medications Acetaminophen (Acetaminophen 325 Mg Tab) 650 mg PO Q4H PRN PRN Reason: Pain or Fever Stop: 04/23/23 13:34 Last Admin: 03/27/23 09:07 Dose: 650 mg Al Hydrox/Mg Hydrox/Simethicone (Aluminum/Magnesium Susp 30 Ml Udc) 15 ml PO Q4H PRN PRN Reason: Dyspepsia Stop: 04/23/23 13:34 Cyanocobalamin (Cyanocobalamin 1000 Mcg/Ml Vial) 1,000 mcg SC DAILY@1200 [facility] Stop: 03/28/23 12:01 Last Admin: 03/27/23 12:32 Dose: 1,000 mcg Enoxaparin Sodium (Enoxaparin 100 Mg/1ml Syr) 100 mg SQ Q12H [facility] Stop: 04/25/23 09:59 Last Admin: 03/27/23 21:55 Dose: 100 mg Fluoxetine HCl (Fluoxetine Hcl 10 Mg Cap) 10 mg PO DAILY [facility] Stop: 04/24/23 08:59 Last Admin: 03/27/23 09:06 Dose: 10 mg Iron Sucrose 200 mg/ Sodium (Chloride) 110 mls @ 220 mls/hr IV Q24H [facility] Stop: 03/28/23 12:29 Last Infusion: 03/27/23 15:07 Dose: Infused Magnesium Hydroxide (Magnesium Hydroxide Susp 30 Ml Udc) 30 ml PO Q12H PRN PRN Reason: Constipation Stop: 04/23/23 13:34 Polyethylene Glycol (Polyethylene (Miralax) 17 Gm Pack) 17 gm PO DAILY PRN PRN Reason: Constipation Stop: 04/23/23 13:34 Warfarin Sodium (Warfarin Sod 5 Mg Tab) 5 mg PO DAILY@1600 [facility] Stop: 04/25/23 15:59 Last Admin: 03/27/23 15:24 Dose: 5 mg (1) Pulmonary embolism Acute cor pulmonale presence: with acute cor pulmonale Chronicity: acute Pulmonary embolism type: unspecified Qualified Code(s): I26.09 - Other pulmonary embolism with acute cor pulmonale (3) Anemia Anemia type: unspecified type Qualified Code(s): D64.9 - Anemia, unspecified
--- NOTE | 2023-03-28 08:48 | Electrocardiogram Report ---
Test Reason : Blood Pressure : / mmHG Vent. Rate : 090 BPM Atrial Rate : 090 BPM P-R Int : 120 ms QRS Dur : 090 ms QT Int : 386 ms P-R-T Axes : 038 035 023 degrees QTc Int : 472 ms Normal sinus rhythm Normal ECG When compared with ECG of 25-MAR-2023 05:03, T wave inversion now evident in Anterior leads Confirmed by Tavo Chinchilla ([id number]) on 03/28/2023 8:48:05 AM Referred By: Jackie Rangel Confirmed By:Tavo Chinchilla
--- NOTE | 2023-03-28 08:57 | Pulmonology Progress Note ---
Date of Service March 28, 2023 Assessment & Plan (1) Pulmonary embolism: Acute cor pulmonale presence: with acute cor pulmonale Chronicity: acute Pulmonary embolism type: unspecified Qualified Code(s): I26.09 - Other pulmonary embolism with acute cor pulmonale (2) Anemia: Anemia type: unspecified type Qualified Code(s): D64.9 - Anemia, unspecified (3) Hypoxia: (4) Cor pulmonale, acute: Plan Impression: 32-year-old female with acute PE with acute right-sided heart failure and anemia. CT chest 03/24/2023 personally reviewed: Bilateral large pulmonary emboli Right heart strain appreciated on the CT, filling defect in the right ventricle No mediastinal lymphadenopathy 2D echo 03/24/2023: EF 55-60%, flattened septum, RV moderately dilated, RVSP 40- 50 mmHg, 2.2 x 1.1 cm filling defect at the end of the RV free wall, probable thrombus -- Acute PE sPESI: 1 on presentation, 8.9% risk of mortality Intermediate high risk Echo shows right heart strain with Carson sign Elevated BNP and troponin Patient takes OCPs Negative for DVT bilateral lower extremity On the CTA as well as echo patient seem to have clot in transit, this is an indication for tPA Given that we are already 4 days past this finding and patient is hemodynamically stable. Would recommend continue with anticoagulation with Lovenox bridge to warfarin --Acute hypoxic respiratory failure Secondary above Continue with O2 supplementation to keep oxygen saturation greater than 92 Patient likely will need oxygen even at home. -- Obesity Advised to lose with diet and exercise Plan: Given BMI of 36.6, would be careful when thinking of taking the patient off of anticoagulation. If there is no contraindication to anticoagulation would recommend prolonged anticoagulation in this patient Hypercoagulable work-up has been ordered by hematology. Case was discussed with RN at bedside Please note the above document was generated using voice recognition software. It may contain grammatical, syntax or spelling errors.Any formal questions or concerns about the content, text or information contained within the body of this dictation should be directly addressed to the provider for clarification. Admission and Anticipated Discharge Date Admission Date: March 24, 2023 Subjective Patient seen and examined at bedside. No acute distress, no adverse events overnight She was saturating 99% on 2 L nasal cannula at rest. I went down to 1 L and she was still saturating 96-97% She was a little bit tachycardic Denies any chest pain, no chest tightness, no dizziness, no palpitation, no diap horesis No headache Patient was discussed with outgoing deaf/hard of hearing specialist Review of Systems Review of Systems: All systems reviewed & are unremarkable except as noted in Subjective Physical Exam Physical Exam: Constitutional: No acute distress HEENT: EOMI, PERRLA Respiratory system: Good air entry bilaterally, no wheeze, no rhonchi, no crackles CVS: S1-S2 positive, no murmurs or gallops, tachycardia Abdomen: Soft, nontender, nondistended, positive bowel sounds x4 Extremities: +2 pulses bilaterally radialis/ dorsalis pedis, no cyanosis, no edema Neuro: Awake alert oriented x3 Psych: Normal mood and affect G/U: No Carbajla Skin: no rashes, warm and dry Lymphatic: no cervical or axillary lymphadenopathy Results & Data Results & Data Vital Signs (Past 12 Hours) Vital Signs Temp Pulse Pulse Resp BP Pulse Ox O2 Del Method 03/28/23 07:48 Nasal Cannula 03/28/23 07:40 36.5 C 97 H 20 121/86 99 Nasal Cannula 03/28/23 03:50 36.7 C 87 17 129/85 98 Nasal Cannula 03/27/23 22:44 96 H 03/27/23 22:36 36.9 C 95 H 20 142/97 H 98 Nasal Cannula O2 Flow Rate 03/28/23 07:48 2 03/28/23 07:40 2 03/28/23 03:50 2 03/27/23 22:44 03/27/23 22:36 2 Laboratory Results 03/28/23 06:22 03/28/23 06:22 PG Care Time/CCT Total # of Minutes Spent Total Time Spent with Patient: Total time spent is greater than 50% in coordination of care (as documented) at patient's floor/unit and/or counseling patient: Coding Level of Care Code 07731 SUB INP/OBS CARE 3/50MIN Diagnoses Pulmonary embolism I26.09 Acute cor pulmonale presence: with acute cor pulmonale Chronicity: acute Pulmonary embolism type: unspecified Anemia D64.9 Anemia type: unspecified type Hypoxia R09.02 Cor pulmonale, acute I26.09
[2023-03-28] MEDS: ENOXAPARIN 100 MG/1ML SYR SQ SCH ×2 (09:43→21:59)
[2023-03-28] MEDS: FLUoxetine HCL 10 MG CAP PO SCH (09:44)
[2023-03-28] MEDS: CYANOCOBALAMIN 1000 MCG/ML VIAL SC SCH (11:27)
[2023-03-28] MEDS: IRON SUCROSE 200 MG in 0.9 % SODIUM CHLORIDE 100 ML IV SCH (11:32)
[2023-03-28] MEDS: WARFARIN SOD 5 MG TAB PO SCH (15:50)
--- NOTE | 2023-03-29 00:51 | Ultrasound Report ---
Exam(s): US OB/ENDOVAG EXAM: US Pelvis Transvaginal CLINICAL HISTORY: Reason for exam: left ovarian cyst on CT. TECHNIQUE: Real-time transvaginal pelvic ultrasound with image documentation. Transvaginal imaging was used for better evaluation of the endometrium and adnexa. COMPARISON: CT abdomen and pelvis 03/25/23 FINDINGS: Uterus/cervix: Uterus measures 8.3 x 4.9 x 6.8 cm. Endometrium measures 6 mm. No myometrial mass. Right ovary: Right ovary measures 38 x 26 x 30 mm. There is an exophytic right ovarian cyst measuring 36 mm which appears complex, possibly a hemorrhagic cyst. Normal blood flow. Left ovary: Left ovary measures 3 2 x 17 x 14 mm. Normal blood flow. Free fluid: No significant free pelvic fluid. Bladder: Empty bladder which cannot be evaluated with this probe. IMPRESSION: 1. No torsion. 2. No visible left ovarian cyst. 3. Exophytic hemorrhagic right ovarian cyst measuring 36 mm. Consider sonographic follow-up in 6-12 weeks. Electronically signed by: Susan Duncan M.D. 03/29/23 00:50 AM
[2023-03-29 07:23] LABS: BUN Creatinine Ratio 13.3 (10-20); Calcium 8.8 mg/dl (8.6-10.3); Creatinine Clr Calc Pharmacy 120.7 ml/min; Est GFR (African American) 122.2 ml/min; Est GFR (Non-African American) 105.5 ml/min; Potassium 3.9 mmol/L (3.5-5.1)
[2023-03-29 07:27] LABS: INR 2.2 (0.9-1.1)
--- NOTE | 2023-03-29 08:31 | Pulmonology Progress Note ---
Date of Service March 29, 2023 Assessment & Plan (1) Pulmonary embolism: Acute cor pulmonale presence: with acute cor pulmonale Chronicity: acute Pulmonary embolism type: unspecified Qualified Code(s): I26.09 - Other pulmonary embolism with acute cor pulmonale (2) Anemia: Anemia type: unspecified type Qualified Code(s): D64.9 - Anemia, unspecified (3) Hypoxia: (4) Cor pulmonale, acute: Plan Impression: 32-year-old female with acute PE with acute right-sided heart failure and anemia. CT chest 03/24/2023 personally reviewed: Bilateral large pulmonary emboli Right heart strain appreciated on the CT, filling defect in the right ventricle No mediastinal lymphadenopathy 2D echo 03/24/2023: EF 55-60%, flattened septum, RV moderately dilated, RVSP 40- 50 mmHg, 2.2 x 1.1 cm filling defect at the end of the RV free wall, probable thrombus -- Acute PE sPESI: 1 on presentation, 8.9% risk of mortality Intermediate high risk Echo shows right heart strain with Carson sign Elevated BNP and troponin Patient takes OCPs Negative for DVT bilateral lower extremity On the CTA as well as echo patient seem to have clot in transit, this is an indication for tPA Given that we are already 4 days past this finding and patient is hemodynamically stable. Would recommend continue with anticoagulation with Lovenox bridge to warfarin --Acute hypoxic respiratory failure Secondary above Continue with O2 supplementation to keep oxygen saturation greater than 92 Patient likely will need oxygen even at home. -- Obesity Advised to lose with diet and exercise -- Childhood history of asthma Not on any inhalers at home Plan: Given BMI of 36.6, would be careful when thinking of taking the patient off of anticoagulation. If there is no contraindication to anticoagulation would recommend prolonged anticoagulation in this patient Hypercoagulable work-up has been ordered by hematology. Try to titrate off oxygen. Would recommend to check for oxygen requirement on exertion prior to discharge Case was discussed with RN at bedside Please note the above document was generated using voice recognition software. It may contain grammatical, syntax or spelling errors.Any formal questions or concerns about the content, text or information contained within the body of this dictation should be directly addressed to the provider for clarification. Admission and Anticipated Discharge Date Admission Date: March 24, 2023 Subjective Patient seen and examined at bedside. No acute distress, no adverse events overnight She was saturating 97% on 1 L nasal cannula. I turned off the oxygen she was still saturating 92-93% Denies any chest pain, occasionally does complain of chest tightness when she is exerting No hemoptysis Menstrual bleeding is also trending down. No nausea or vomiting, fair appetite Review of Systems Review of Systems: All systems reviewed & are unremarkable except as noted in Subjective Physical Exam Physical Exam: Constitutional: No acute distress HEENT: EOMI, PERRLA Respiratory system: Good air entry bilaterally, no wheeze, no rhonchi, no crackles CVS: S1-S2 positive, no murmurs or gallops Abdomen: Soft, nontender, nondistended, positive bowel sounds x4 Extremities: +2 pulses bilaterally radialis/ dorsalis pedis, no cyanosis, no edema Neuro: Awake alert oriented x3 Psych: Normal mood and affect G/U: No Carbajal Skin: no rashes, warm and dry Lymphatic: no cervical or axillary lymphadenopathy Results & Data Results & Data Vital Signs (Past 12 Hours) Vital Signs Temp Pulse Pulse Resp BP Pulse Ox O2 Del Method 03/29/23 08:00 Nasal Cannula 03/29/23 07:56 77 03/29/23 07:26 36.4 C L 81 20 135/91 97 Nasal Cannula 03/29/23 03:34 36.6 C 95 H 20 137/91 97 Nasal Cannula 03/28/23 22:33 89 03/28/23 22:53 37.0 C 100 H 20 143/96 H 99 Nasal Cannula O2 Flow Rate 03/29/23 08:00 1 03/29/23 07:56 03/29/23 07:26 1 03/29/23 03:34 1 03/28/23 22:33 03/28/23 22:53 1 Laboratory Results 03/29/23 05:58 PG Care Time/CCT Total # of Minutes Spent Total Time Spent with Patient: Total time spent is greater than 50% in coordination of care (as documented) at patient's floor/unit and/or counseling patient: Coding Level of Care Code 09465 SUB INP/OBS CARE 2/35MIN Diagnoses Pulmonary embolism I26.09 Acute cor pulmonale presence: with acute cor pulmonale Chronicity: acute Pulmonary embolism type: unspecified Anemia D64.9 Anemia type: unspecified type Hypoxia R09.02 Cor pulmonale, acute I26.09
[2023-03-29] MEDS: ENOXAPARIN 100 MG/1ML SYR SQ SCH ×2 (08:54→21:38)
[2023-03-29] MEDS: FLUoxetine HCL 10 MG CAP PO SCH (08:54)
--- NOTE | 2023-03-29 08:56 | OB/GYN Consultation ---
Date of Consultation March 29, 2023 Assessment & Plan (1) Pulmonary embolism: (2) Menorrhagia: (3) Ovarian mass: Plan Reviewed us report with the patient. Would plan a f/u ultrasound in 3-6 months. The cyst noted is small, and not particularly concerning. To manage her MR, anemia, and provide control, the following was outlined for the patient 1. Could do expectant management and use condom. Discussed that likely period will return to what is was pre ocp and may be even heavier on the coumadin. However, this is likely the only option that could give her a "normal period". Agree with f/u with hematology to r/o other causes or anemia other than MR and testing for genetic clotting disorders. 2. Not a candidate for estrogen so discussed other progestin options with the patient. pop--thickens mucous, may not control bleeding depoprovera--will likely become amenorrheic on this. However, may cause weight gain and will need to be on calcium for calcium loss with depo. It has a very small risk of VTE but much less than estrogen. Nexplanon--progestin again with a small risk of VTE. no weight gain. However, cannot predict bleeding--none, irregular, or light regular progestin iud--discussed r/b/se of placement, discussed three types. more likely to get light regular period with Ilda but more likely to achieve amenorrhea with Mirena At this point patient would like to consider her options and would like to hold off on any therapy , chacha Depo , at this time. Plan f/u in the office in 3-4 weeks where we will do endo biopsy and discuss options again. Was advised to call the office should she have any questions or heavy bleeding and my name and number provided to the patient. I will arrange f/u in the office and she will be notified of this. Thank you for this consult. If we can be of any further service, please let us know. Otherwise, will sign off . History of Present Illness Reason for Consultation: PE on ocp, hx of menorrhagia and ovarian cyst Requesting Physician: Dr. Vasquez Attending Physician: Boris Vasquez MD History of Present Illness Patient is a 32yowf G0 who was admitted for large bilateral PE and right sided heart failure. She is being managed by hospitalist and pulmonary. She is switching from lovenox to Coumadin and equipment operator intermodal yard anticoagulation planned. She was placed on ocp for menorrhagia and this has been appropriately d/c. She had a national sales manager consult with [facility] who recommended she be switched to depo to control her bleeding and recommended an ultrasound. She had the ultrasound yesterday with the following findings. EXAM: US Pelvis Transvaginal CLINICAL HISTORY: Reason for exam: left ovarian cyst on CT. TECHNIQUE: Real-time transvaginal pelvic ultrasound with image documentation. Transvaginal imaging was used for better evaluation of the endometrium and adnexa. COMPARISON: CT abdomen and pelvis 03/25/23 FINDINGS: Uterus/cervix: Uterus measures 8.3 x 4.9 x 6.8 cm. Endometrium measures 6 mm. No myometrial mass. Right ovary: Right ovary measures 38 x 26 x 30 mm. There is an exophytic right ovarian cyst measuring 36 mm which appears complex, possibly a hemorrhagic cyst. Normal blood flow. Left ovary: Left ovary measures 3 2 x 17 x 14 mm. Normal blood flow. Free fluid: No significant free pelvic fluid. Bladder: Empty bladder which cannot be evaluated with this probe. IMPRESSION: 1. No torsion. 2. No visible left ovarian cyst. 3. Exophytic hemorrhagic right ovarian cyst measuring 36 mm. Consider sonographic follow-up in 6-12 weeks. It seems she is uncomfortable with the recommendation from the [facility] national sales manager and since all her care is going to be with [facility] she would like to speak with a [facility] national sales manager and f/u with them. Managing Jeweler hx--Patient had her first ever pap with her [facility] pcp in Oct. She notes this was abnl with +HPV. She had a colposcopy with [facility] national sales manager in Nov. Per her report, low grade abnl was found and pap and HPV testing recommended in one year. It was around this time she was started on ocps for period control and control. She has just recently become sexually active with male partner in the last year., she has had two partners and has been with her current for two months. Had testing for gc/ct at her previous visit and negative. She notes she would like tested for this again as her partner had CT but she did not. She notes her periods have always been irregular, can skip months at at time. She notes over the last couple of years, her periods have become much heavier and can bleed for 10-12 days. She notes her periods were much better on the pill. She has had no w/u for this in the past. She had been using condoms for control prior to starting the ocps. She is a G0 and does not plan to have children. Patient notes that she would prefer to have a light period if at all possible. She notes she has lost 50# in the last several months and was congratulated. Very concerned about being on something that could cause weight gain. she had her last estrogen pill on . Her period started on Tuesday. She notes very light flow as of today. ON ros--no f/c/n/v, no constipation, mild diarrhea with period. some cramping with her period. no blood in urine or stool Allergies Allergy/AdvReac Type Severity Reaction Status Date / Time No Known Allergies Allergy Verified 03/24/23 13:05 Home Medications Medication Instructions Recorded Confirmed Type fluoxetine 10 mg capsule 10 mg PO DAILY 03/24/23 03/24/23 History levonorgestrel-ethinyl estradiol 1 tab PO DAILY 03/24/23 03/24/23 History 0.1 mg-20 mcg tablet Patient History Medical History (Updated 03/29/23 @ 08:58 by Kecia Gill MD, FACOG) B12 deficiency Depression Menorrhagia Obesity Ovarian mass 36mm complex right ovarian exophytic cyst 03/28/23 Pulmonary embolism Surgical History (Updated 03/24/23 @ 14:36 by DWAYNE Campbell) No pertinent past surgical history Family History (Updated 03/24/23 @ 14:36 by DWAYNE Campbell) Other Diabetes Social History Smoking Status: Never smoker Hx Alcohol Use: No Hx Substance Use: No Preferred Language: Lithuanian Communication Ability: Effective Trading Assistant Required: No Beliefs That Will Affect Care: None Current Living Situation: Alone Feels Safe at Home: Yes Assistive Devices: None Review of Systems Review of Systems: All systems reviewed & are unremarkable except as noted in HPI & below Physical Exam Constitutional: WD/WN, vitals as above Neck: trachea midline, no thyromegaly Respiratory: normal respiratory effort, lungs clear to auscultation Cardiovascular: RRR, no murmur, no edema Gastrointestinal (Abdomen): obese soft, nt Results & Data Vital Signs (Past 12 Hours) Vital Signs Temp Pulse Pulse Resp BP Pulse Ox O2 Del Method 03/29/23 08:00 Nasal Cannula 03/29/23 07:56 77 03/29/23 07:26 36.4 C L 81 20 135/91 97 Nasal Cannula 03/29/23 03:34 36.6 C 95 H 20 137/91 97 Nasal Cannula 03/28/23 22:33 89 03/28/23 22:53 37.0 C 100 H 20 143/96 H 99 Nasal Cannula O2 Flow Rate 03/29/23 08:00 1 03/29/23 07:56 03/29/23 07:26 1 03/29/23 03:34 1 03/28/23 22:33 03/28/23 22:53 1 PG Care Time/CCT Total # of Minutes Spent Total Time Spent with Patient: Total time spent is greater than 50% in coordination of care (as documented) at patient's floor/unit and/or counseling patient: Coding Level of Care Code 18775 IN/OBS CONSULT LVL 2,35M Diagnoses Pulmonary embolism I26.09 Acute cor pulmonale presence: with acute cor pulmonale Chronicity: acute Pulmonary embolism type: unspecified Menorrhagia N92.0 Ovarian mass N83.8 (1) Pulmonary embolism Acute cor pulmonale presence: with acute cor pulmonale Chronicity: acute Pulmonary embolism type: unspecified Qualified Code(s): I26.09 - Other pulmonary embolism with acute cor pulmonale
[2023-03-29 10:38] LABS: Hematocrit (blood only) 34.5 % (37.0-47.0); Hemoglobin 8.8 g/dl (12.0-16.0); Mean Corpuscular Hemoglobin 17.5 pg (25.0-34.0); Mean Corpuscular Hgb Conc 25.5 g/dL (32.0-36.0); Mean Corpuscular Volume 68.5 fL (80.0-100.0); Mean Platelet Volume 10.4 fL (9.4-12.4); Platelet Count 349 K/uL (130-400); Red Blood Count 5.04 M/uL (4.20-5.40); White Blood Count 8.78 K/ul (4.8-10.8)
--- NOTE | 2023-03-29 14:44 | Hospitalist Progress Note ---
Date of Service March 29, 2023 Assessment & Plan (1) Pulmonary embolism: (2) Hypoxia: (3) Anemia: (4) Depression: Plan 32 year old F with acute SOB that started on Tuesday. Chest CTA bilateral PE. Heparin gtt ordered. Anemic 7.8; anemia panel pending. May have underlying coagulopathy issues to investigate once off Heparin infusion. 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 Pulmonary Embolism: Hypoxia 2/2 above SOB since Tuesday Hypoxic 86% ; on 2LNC on admission D-Dimer 4390 Chest CTA: large clot burden. Emboli within the right pulmonary artery as well as emboli extending into the lobes of both lungs. Many lobar pulmonary emboli are occlusive. No pulmonary infarct is present. There is straightening of the interventricular septum. There is possible thrombus within the right ventricle which measures up to 2.6 cm. Heparin gtt with bolus started on admission ECHO obtained - + cardiac thrombus Pulmonary consultation; appreciate recommendations as outlined here: Per Pulmonary; recommend heparin for 3-4 days prior to transition to oral anticoagulant. Given the extensive nature of her clot and idiopathic nature of her clot, could make a strong case for lifelong anticoagulation. If not, would complete 6 months of anticoagulation and then follow-up with hematology for consideration of thrombophilia evaluation. Hematology and gynecology consulted 03/26 -discussed with hematology, switched to Lovenox, therapeutic dose, and started warfarin Monitor INR 03/28 - current INR 1.7, cont. to use suppl. O2 Gynecology also ordered transvag. US and depo/provera 03/28 -discussed with the patient. She is okay to proceed with ultrasound, however she is unsure about her Depo shot. Will follow up on US. 03/29 - Discussed w/ [employer] dean, pulm., cardiology - Echo repeated. Discussed w/ [employer] dean over the phone - pt had transv. US - pt will follow up as outpt Anemia: Hgb 7.8 Anemia panel and FOBT heavy menstrual cycles since October 2022 Started OCP at that time Pale conjunctiva and lips transfused 1unit of pRBC Hematology , Wood Tile Installer consulted 03/26 -discussed with hematology, switched to Lovenox, started warfarin. In addition- giving IV iron and vitamin B12 for next 3 days 03/27 Discussed w/ gynecology - plan for depo/provera, transvag. US 03/29 Current Hgb 8.8 Continue to monitor Depression: takes Prozac; continue Disposition: PCP: Dr. Barnes Code Status: Full Code VTE Prophylaxis: lovenox therap. dose Admission and Anticipated Discharge Date Admission Date: March 24, 2023 Subjective Pt seen in follow up of PE, cor pulmonale, anemia Currently sitting up in bed in NAD, on suppl. O2, breathing comfortably at this time Reported that she tried to be without oxygen per RN, and she was desaturating No chest pain, or shortness of breath on exertion much improved now. No fevers Seen by pulmonary medicine and hematology - now on Lovenox and warfarin In addition, providing IV iron, and vitamin B12 Discussed w/ college [employer] dean over the phone. Review of Systems Review of Systems: All systems reviewed & are unremarkable except as noted in Subjective Physical Exam Physical Exam: General: obese young F on suppl. O2, in NAD HEENT: NC/AT. head normocephalic, moist mucus membranes. pale conjunctiva and lips CV: S1/S2, (-) M/G/R, (-) edema Resp: Lungs decreased in all lobes. on suppl. O2 GI: Abdomen S/NT/ND, obese, +bowel sounds Musculoskeletal: moves extremities Neuro: AAOx3, PERRL, speech fluent, moves extremities Skin: (-) rashes , (-) erythema. pale Psych: euthymic Results & Data Results & Data Vital Signs (Past 12 Hours) Vital Signs Temp Pulse Pulse Resp BP Pulse Ox O2 Del Method 03/29/23 11:37 36.9 C 97 H 20 133/93 96 Room Air 03/29/23 08:00 Nasal Cannula 03/29/23 07:56 77 03/29/23 07:26 36.4 C L 81 20 135/91 97 Nasal Cannula 03/29/23 03:34 36.6 C 95 H 20 137/91 97 Nasal Cannula O2 Flow Rate 03/29/23 11:37 03/29/23 08:00 1 03/29/23 07:56 03/29/23 07:26 1 03/29/23 03:34 1 Laboratory Results 03/29/23 03/29/23 03/29/23 Range/Units 05:58 05:58 05:58 WBC 8.78 (4.8-10.8) K/ul RBC 5.04 (4.20-5.40) M/uL Hgb 8.8 L (12.0-16.0) g/dl Hct 34.5 L (37.0-47.0) % MCV 68.5 L (80.0-100.0) fL MCH 17.5 L (25.0-34.0) pg MCHC 25.5 L (32.0-36.0) g/dL RDW Std Deviation 45.0 (36.4-46.3) fL RDW Coeff of Radha 22.0 H (11.5-14.5) % Plt Count 349 (130-400) K/uL MPV 10.4 (9.4-12.4) fL PT 23.0 H (9.0-12.0) Seconds INR 2.2 H (0.9-1.1) Sodium 141 (136-145) mmol/L Potassium 3.9 (3.5-5.1) mmol/L Chloride 107 (98-107) mmol/L Carbon Dioxide 26 (21-32) mmol/L Anion Gap 8 (3-11) BUN 10 (6-23) mg/dl Creatinine 0.75 (0.6-1.2) mg/dl Est Cr Clr Drug Dosing 120.7 ml/min Est GFR ( Amer) 122.2 ml/min Est GFR (Non-Af Amer) 105.5 ml/min BUN/Creatinine Ratio 13.3 (10-20) Glucose 80 (70-99(Fasting)) mg/dl Calcium 8.8 (8.6-10.3) mg/dl Phosphorus 5.0 H (2.5-4.9) mg/dl Magnesium 2.0 (1.7-2.4) mg/dl Medications Administered Current Inpatient Medications Acetaminophen (Acetaminophen 325 Mg Tab) 650 mg PO Q4H PRN PRN Reason: Pain or Fever Stop: 04/23/23 13:34 Last Admin: 03/27/23 09:07 Dose: 650 mg Al Hydrox/Mg Hydrox/Simethicone (Aluminum/Magnesium Susp 30 Ml Udc) 15 ml PO Q4H PRN PRN Reason: Dyspepsia Stop: 04/23/23 13:34 Enoxaparin Sodium (Enoxaparin 100 Mg/1ml Syr) 100 mg SQ Q12H PEBBLES Stop: 04/25/23 09:59 Last Admin: 03/29/23 08:54 Dose: 100 mg Fluoxetine HCl (Fluoxetine Hcl 10 Mg Cap) 10 mg PO DAILY [facility] Stop: 04/24/23 08:59 Last Admin: 03/29/23 08:54 Dose: 10 mg Magnesium Hydroxide (Magnesium Hydroxide Susp 30 Ml Udc) 30 ml PO Q12H PRN PRN Reason: Constipation Stop: 04/23/23 13:34 Polyethylene Glycol (Polyethylene (Miralax) 17 Gm Pack) 17 gm PO DAILY PRN PRN Reason: Constipation Stop: 04/23/23 13:34 Warfarin Sodium (Warfarin Sod 3 Mg Tab) 3 mg PO DAILY@1600 [facility] Stop: 04/28/23 15:59 (1) Pulmonary embolism Acute cor pulmonale presence: with acute cor pulmonale Chronicity: acute Pulmonary embolism type: unspecified Qualified Code(s): I26.09 - Other pulmonary embolism with acute cor pulmonale (3) Anemia Anemia type: unspecified type Qualified Code(s): D64.9 - Anemia, unspecified
[2023-03-29] MEDS ORDERED: WARFARIN SOD 3 MG TAB PO SCH (16:00)
[2023-03-29] MEDS ORDERED: WARFARIN SOD 4 MG TAB PO SCH (16:00)
[2023-03-30 07:21] LABS: Hematocrit (blood only) 34.2 % (37.0-47.0); Mean Corpuscular Hgb Conc 26.3 g/dL (32.0-36.0); Mean Corpuscular Volume 68.4 fL (80.0-100.0); Mean Platelet Volume 10.1 fL (9.4-12.4); Platelet Count 381 K/uL (130-400); RDW Coefficient of Variation 24.1 % (11.5-14.5); RDW Standard Deviation 44.8 fL (36.4-46.3); White Blood Count 8.34 K/ul (4.8-10.8)
[2023-03-30 07:56] LABS: BUN Creatinine Ratio 15.5 (10-20); Calcium 8.8 mg/dl (8.6-10.3); Creatinine Clr Calc Pharmacy 127.2 ml/min; Est GFR (African American) 130.6 ml/min; Est GFR (Non-African American) 112.7 ml/min; Potassium 4.1 mmol/L (3.5-5.1)
[2023-03-30 07:59] LABS: INR 2.5 (0.9-1.1); Prothrombin Time 25.6 Seconds (9.0-12.0)
[2023-03-30] MEDS: ENOXAPARIN 100 MG/1ML SYR SQ SCH (08:17)
[2023-03-30] MEDS: FLUoxetine HCL 10 MG CAP PO SCH (08:18)
--- NOTE | 2023-03-30 08:57 | Pulmonology Progress Note ---
Date of Service March 30, 2023 Assessment & Plan (1) Pulmonary embolism: Acute cor pulmonale presence: with acute cor pulmonale Chronicity: acute Pulmonary embolism type: unspecified Qualified Code(s): I26.09 - Other pulmonary embolism with acute cor pulmonale (2) Anemia: Anemia type: unspecified type Qualified Code(s): D64.9 - Anemia, unspecified (3) Hypoxia: (4) Cor pulmonale, acute: Plan Impression: 32-year-old female with acute PE with acute right-sided heart failure and anemia. CT chest 03/24/2023 personally reviewed: Bilateral large pulmonary emboli Right heart strain appreciated on the CT, filling defect in the right ventricle No mediastinal lymphadenopathy 2D echo 03/24/2023: EF 55-60%, flattened septum, RV moderately dilated, RVSP 40- 50 mmHg, 2.2 x 1.1 cm filling defect at the end of the RV free wall, probable thrombus -- Acute PE sPESI: 1 on presentation, 8.9% risk of mortality Intermediate high risk Echo shows right heart strain with Carson sign Elevated BNP and troponin Patient takes OCPs Negative for DVT bilateral lower extremity On the CTA as well as echo patient seem to have clot in transit, this is an indication for tPA Given that we are already 4 days past this finding and patient is hemodynamically stable. Would recommend continue with anticoagulation with Lovenox bridge to warfarin --Acute hypoxic respiratory failure Secondary above Continue with O2 supplementation to keep oxygen saturation greater than 92 Patient likely will need oxygen even at home. -- Obesity Advised to lose with diet and exercise -- Childhood history of asthma Not on any inhalers at home Plan: Given BMI of 36.6, would be careful when thinking of taking the patient off of anticoagulation. If there is no contraindication to anticoagulation would recommend prolonged anticoagulation in this patient Hypercoagulable work-up has been ordered by hematology. Try to titrate off oxygen. Would recommend to check for oxygen requirement on exertion prior to discharge Case was discussed with RN at bedside Please note the above document was generated using voice recognition software. It may contain grammatical, syntax or spelling errors.Any formal questions or concerns about the content, text or information contained within the body of this dictation should be directly addressed to the provider for clarification. Admission and Anticipated Discharge Date Admission Date: March 24, 2023 Subjective Patient seen and examined at bedside. No acute distress, no adverse events overnight Patient was sitting on the chair Saturating 94-95% on room air Denies any chest pain No chest tightness Fair appetite No fever or chills No headache, no blurry vision Review of Systems Review of Systems: All systems reviewed & are unremarkable except as noted in Subjective Physical Exam Physical Exam: Constitutional: No acute distress HEENT: EOMI, PERRLA Respiratory system: Good air entry bilaterally, no wheeze, no rhonchi, no crackles CVS: S1-S2 positive, no murmurs or gallops Abdomen: Soft, nontender, nondistended, positive bowel sounds x4 Extremities: +2 pulses bilaterally radialis/ dorsalis pedis, no cyanosis, no edema Neuro: Awake alert oriented x3 Psych: Normal mood and affect G/U: No Carbajal Skin: no rashes, warm and dry Lymphatic: no cervical or axillary lymphadenopathy Results & Data Results & Data Vital Signs (Past 12 Hours) Vital Signs Temp Pulse Pulse Resp BP Pulse Ox O2 Del Method 03/30/23 07:53 36.4 C L 73 18 131/83 100 Nasal Cannula 03/30/23 03:12 36.8 C 87 20 121/82 99 Nasal Cannula 03/29/23 22:51 36.7 C 87 16 127/84 98 Room Air 03/29/23 22:09 89 O2 Flow Rate 03/30/23 07:53 2.0 03/30/23 03:12 2 03/29/23 22:51 03/29/23 22:09 Laboratory Results 03/30/23 07:05 03/30/23 07:04 PG Care Time/CCT Total # of Minutes Spent Total Time Spent with Patient: Total time spent is greater than 50% in coordination of care (as documented) at patient's floor/unit and/or counseling patient: Coding Level of Care Code 32609 SUB INP/OBS CARE 2/35MIN Diagnoses Pulmonary embolism I26.09 Acute cor pulmonale presence: with acute cor pulmonale Chronicity: acute Pulmonary embolism type: unspecified Anemia D64.9 Anemia type: unspecified type Hypoxia R09.02 Cor pulmonale, acute I26.09
--- NOTE | 2023-03-30 13:14 | Discharge Summary ---
Date of Service March 30, 2023 Admission HPI Per Admitting Provider On Tuesday, patient was SOB while walking to her office, which usually takes her 8-10 minutes but was taking her nearly 30 minutes due to having to stop frequently. She did leave work and went to urgent care yesterday for which she was prescribed Prednisone and an inhaler. She took one dose of her Prednisone without relief. 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 She was originally started on OCPs due to heavy menstrual flow. In the ED, D-Dimer elevated 4390, Hgb 7.8; reports no known history of anemia. No contributing family history or any coagulation history issues. No other contributing history. 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 She denies tobacco use, alcohol use, recreational drug use. She has taken an edible about 3 months ago. She does not have any pets. Pt sitting upright in her hospital bed and dyspneic during conversation. She is tachycardic low 100's, but is able to complete full sentences. Patient denies COBOS, dizziness, chest pain, palpitations, abdominal pain, hematochezia, urine changes, recent falls, rashes, abnormal bruising. Pt does have pale lips and conjunctiva on exam. Pt was started on a heparin gtt with bolus. c Patient will be admitted for further evaluation and management. Please see A/P for further details. Admission Exam Per Admitting Provider Neuro: AAOx4, PERRLA, no aphagia, memory changes, CNII-XII grossly intact HEENT: head normocephalic, moist mucus membranes. pale conjunctiva and lips CV: S1/S2, (-) M/G/R, (-) edema, cap refill < 3 seconds Resp: Lungs decreased in all lobes. on 2LNC GI: Abdomen S/NT/ND, Ax4 bowel sounds, (-) CVA tenderness Musculoskeletal: 5/5 B/L UE strength, 5/5 B/L LE strength. No gait disturbance Skin: (-) rashes , (-) erythema. Psych: euthymic, yet anxious mood Principal Diagnosis Acute pulmonary embolism Hypoxia Anemia Discharge Exam General: obese young F in NAD, on RA HEENT: NC/AT. head normocephalic, moist mucus membranes. pale conjunctiva and lips CV: S1/S2, (-) M/G/R, (-) edema Resp: Lungs decreased in all lobes. on suppl. O2 GI: Abdomen S/NT/ND, obese, +bowel sounds Musculoskeletal: moves extremities Neuro: AAOx3, PERRL, speech fluent, moves extremities Skin: (-) rashes , (-) erythema. pale Psych: euthymic Discharge Data Allergies Allergy/AdvReac Type Severity Reaction Status Date / Time No Known Allergies Allergy Verified 03/24/23 13:05 Consultations 03/24/23 12:45 ED Decision to Admit Stat 03/24/23 15:29 Consult Pulmonology Routine 03/24/23 16:50 Consult Gynecology Routine 03/25/23 09:49 Consult Hematology Routine 03/29/23 08:35 Consult Gynecology Routine Ordered Studies 03/24/23 11:41 CT angio chest PE protocol Stat FINDINGS: Note is made of extensive bilateral pulmonary emboli. These include emboli within the right pulmonary artery as well as emboli extending into the lobes of both lungs. Many lobar pulmonary emboli are occlusive. No pulmonary infarct is present. There is straightening of the interventricular septum. There is possible thrombus within the right ventricle which measures up to 2.6 cm. No thoracic lymphadenopathy is present. There is no consolidation to suggest pneumonia. No acute fractures within the bony thorax are noted. Visualized portions of the upper abdomen are unremarkable. IMPRESSION: 1. Extensive bilateral pulmonary emboli with findings suggestive of right heart strain. Possible thrombus/emboli within the right ventricle. Findings discussed with Dr. Shore at time of dictation. 2. No pulmonary infarct. 03/24/23 20:14 US venous doppler LE Routine FINDINGS: There is no sonographic evidence of deep venous thrombosis identified in the right or left lower extremity. The common femoral, superficial femoral, and popliteal veins are patent and normally compressible bilaterally. The greater saphenous vein and the profunda femoris vein at the junction with the common femoral vein are clear in both legs. The visualized calf veins are patent bilaterally. IMPRESSION: There is no sonographic evidence of deep venous thrombosis identified in the right or left lower extremity. 03/25/23 03:11 CT Abd and Pelvis [CT abd pelvis wo con] Stat FINDINGS: Lung bases: Unremarkable. No mass. No consolidation. ABDOMEN: Liver: Unremarkable. Gallbladder and bile ducts: Unremarkable. No calcified stones. No ductal dilation. Pancreas: Unremarkable. No ductal dilation. Spleen: Unremarkable. No splenomegaly. Adrenals: Unremarkable. No mass. Kidneys and ureters: Limited evaluation in the absence of intravenous contrast. Suspected excretory phase within the kidneys which may be due to prior contrast-enhanced administration. No evidence of radiopaque renal calculi or signs of collecting system dilatation. Stomach and bowel: Unremarkable. No mucosal thickening. No evidence of bowel obstruction. PELVIS: Appendix: Normal appendix. Bladder: Contrast within the bladder. No stones. Reproductive: Right ovarian mass measuring 2.3 cm and left ovarian mass measuring 2.4 cm. These measure beyond that of simple fluid. Consider pelvic ultrasound if there is further concern. ABDOMEN and PELVIS: Intraperitoneal space: Unremarkable. No free air. No significant fluid collection. Bones/joints: Degenerative changes in the spine. No acute fracture. No dislocation. Soft tissues: Umbilical hernia containing fat. Vasculature: Unremarkable. No abdominal aortic aneurysm. Lymph nodes: Unremarkable. No enlarged lymph nodes. IMPRESSION: 1. Limited evaluation in the absence of intravenous contrast. Suspected excretory phase within the kidneys which may be due to prior contrast- enhanced administration. 2. Right ovarian mass measuring 2.3 cm and left ovarian mass measuring 2. 4 cm. These measure beyond that of simple fluid, though likely relate to cysts. Consider pelvic ultrasound if there is further concern. 3. No other acute findings. 4. Incidental findings as described. 03/28/23 US transvaginal Stat FINDINGS: Uterus/cervix: Uterus measures 8.3 x 4.9 x 6.8 cm. Endometrium measures 6 mm. No myometrial mass. Right ovary: Right ovary measures 38 x 26 x 30 mm. There is an exophytic right ovarian cyst measuring 36 mm which appears complex, possibly a hemorrhagic cyst. Normal blood flow. Left ovary: Left ovary measures 3 2 x 17 x 14 mm. Normal blood flow. Free fluid: No significant free pelvic fluid. Bladder: Empty bladder which cannot be evaluated with this probe. IMPRESSION: 1. No torsion. 2. No visible left ovarian cyst. 3. Exophytic hemorrhagic right ovarian cyst measuring 36 mm. Consider sonographic follow-up in 6-12 weeks. Hospital Course (1) Pulmonary embolism: (2) Hypoxia: (3) Anemia: (4) Depression: Plan 32 year old F with acute SOB that started on Tuesday. Chest CTA bilateral PE. Heparin gtt ordered. Anemic 7.8; anemia panel pending. May have underlying coagulopathy issues to investigate once off Heparin infusion. 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 Pulmonary Embolism: Hypoxia 2/2 above SOB since Tuesday Hypoxic 86% ; on 2LNC on admission D-Dimer 4390 Chest CTA: large clot burden. Emboli within the right pulmonary artery as well as emboli extending into the lobes of both lungs. Many lobar pulmonary emboli are occlusive. No pulmonary infarct is present. There is straightening of the interventricular septum. There is possible thrombus within the right ventricle which measures up to 2.6 cm. Heparin gtt with bolus started on admission ECHO obtained - + cardiac thrombus Pulmonary consultation; appreciate recommendations as outlined here: Per Pulmonary; recommend heparin for 3-4 days prior to transition to oral anticoagulant. Given the extensive nature of her clot and idiopathic nature of her clot, could make a strong case for lifelong anticoagulation. If not, would complete 6 months of anticoagulation and then follow-up with hem atology for consideration of thrombophilia evaluation. Hematology and gynecology consulted 03/26 -discussed with hematology, switched to Lovenox, therapeutic dose, and started warfarin Monitor INR 03/28 - current INR 1.7, cont. to use suppl. O2 Pt seen by gynecology, jvv. US obtained - she will follow up w/ Angelique Hernandez [employer] as outpt, Dr. Gill. 03/30 INR 2.5 - stopped lovenox (discussed w/ heme Dr. Morocho today) - we will discharge on warfarin 4 mg daily, and p.o. vitamin B12 1000 daily. Pt will follow-up with Dr. Morocho as outpatient. She will also follow-up with anticoagulation clinic. PCP follow-up for April 04. Hypoxia currently resolved, patient saturating 98% on room air. Two-step test negative. She may need polysomnography to evaluate for sleep apnea. Anemia: Hgb 7.8 Anemia panel and FOBT heavy menstrual cycles since October 2022 Started OCP at that time Pale conjunctiva and lips transfused 1unit of pRBC Hematology , Miniature Train Driver consulted 03/26 -discussed with hematology, switched to Lovenox, started warfarin. In addition- giving IV iron and vitamin B12 for 3 consecutive days 03/30 Current Hgb 9 Continue to monitor Depression: takes Prozac; continue Disposition: PCP: Dr. Barnes Code Status: Full Code VTE Prophylaxis: lovenox therap. dose Total Time Total Time Spent Total Time Spent (In Minutes): 40 Discharge Plan Discharge Items Patient Disposition: Home - Self-Care Reason For Visit: SOB/PE Discharge Diagnosis: Acute pulmonary embolism Hypoxia Anemia Activity: Per Instructions section Non-emergency contact: Primary Care Provider, Specialist and Tool Repair Technician Call non-emergency contact if: you have any medication questions and your symptoms worsen Follow-up/Referrals: [facility] [Other] (The anticoagulation clinic (also ca lled "[facility]") will call you with further instructions for coumadin management. If you have questions, the number for the [facility] clinic is .) Kecia Gill MD, FACOG [Physician] - (The gynecology office will call you with a follow up appointment.) Ambar Morocho MD [Physician] - (The hematology office will call you with a follow up appointment.) Dameon Vigil MD [Outside Practitioners] - (Date & Time 04/04/2023 1:00 PM Provider Dameon Vigil MD [facility] ) Diet: Heart Healthy Addtl Attending Provider Instructions: Follow-up with primary care physician, your appointment was scheduled for April 04. Follow-up with anticoagulation clinic. Take warfarin 4 mg daily, unless instructed differently from anticoagulation clinic. You will need to have your INR monitored closely. Stop taking your current oral contraception, and discuss further with your director of capital giving. You will be contacted about the appointment with gynecology. You will also need to follow-up with hematology, Dr. Morocho, you will be contacted about the appointment. Pending Studies at Discharge: Yes Studies:: hypercoag. work up Stand-Alone Forms: My [employer], Smoking Cessation Medications and DC Order Prescriptions: New warfarin 4 mg tablet 4 mg PO DAILY Qty: 30 0RF cyanocobalamin (vitamin B-12) 1,000 mcg capsule 1,000 mcg PO DAILY Qty: 30 0RF Continued fluoxetine 10 mg capsule 10 mg PO DAILY Discontinued levonorgestrel-ethinyl estrad 0.1-20 mg-mcg tablet 1 tab PO DAILY Admission Data Admit Date/Time: 03/24/23 13:35 Attending Provider: Knab,Boris F. Admit Provider: Kendell Cloud Primary Care Provider: Jackie Rangel Other Providers: Kendell Cloud ; Demarco Merida ; Dion Ashby ; Ambar Morocho ; Kecia Gill
[2023-03-30] MEDS ORDERED: WARFARIN SOD 4 MG TAB PO ONE (14:41)
== END 2023-03-30 16:30 | disposition home or self-care (01) | DRG 175 ==
LOC: ED 09:29 → 2S 13:35 → SUATTDRO 13:35 → 2S 15:00